=== PATIENT | female | born 1960 | race Caucasian/White ===

== ENCOUNTER 2019-02-26 05:53 | Emergency (ER) | payer MEDICARE, OTHER ==
[2019-02-26] MEDS ORDERED: IBUPROFEN 200 MG TAB PO ONE (06:37)
--- NOTE | 2019-02-26 06:37 | EDPHYS ---
Physician Documentation [facility] Name: Clementina Lawler Age: 58 yrs Sex: Female : 1960 Arrival Date: 02/26/2019 Time: 05:57 Bed 13 Private MD: Asaf More ED Physician Elliot Antonio HPI: 02/26 06:14 This 58 yrs old Female presents to ER via Ambulatory with complaints of Wrist kb Injury. 06:14 The patient or guardian reports decreased range of motion, injury, pain, swelling, kb tenderness. The complaints affect the left wrist diffusely. Context: The problem was sustained at home, resulted from a fall, on an outstretched hand. Onset: The symptoms/episode began/occurred yesterday. Modifying factors: The symptoms are alleviated by nothing, the symptoms are aggravated by movement. Associated signs and symptoms: The patient has no apparent associated signs or symptoms. The patient has not experienced similar symptoms in the past. The patient has not recently seen a physician. Pt reports she fell onto outstretched hand on Monday morning at 0200. States the swelling and bruising is just getting worse. Historical: - Allergies: 06:14 Risperdal; bb - Home Meds: 06:14 fluoxetine 20 mg Oral cap 1 cap once daily [Active]; gabapentin oral oral [Active]; bb Wellbutrin 100 mg Oral tab [Active]; levothyroxine oral [Active]; Amitriptyline Oral [Active]; - PMHx: 06:14 Anxiety; BREAST CA; Chronic pain; Depression; Hypothyroidism; bb - PSHx: 06:14 lumpectomy with lymph node removal; oophorectomy; salpingectomy; bb - Immunization history:: Adult Immunizations up to date. - Social history:: Smoking status: Patient uses tobacco products, smokes one pack cigarettes per day. - Ebola Screening: : No symptoms or risks identified at this time. ROS: 06:13 Constitutional: Negative for fever, chills, and weight loss, Cardiovascular: Negative kb for chest pain, palpitations, and edema, Respiratory: Negative for shortness of breath, cough, wheezing, and pleuritic chest pain, Abdomen/GI: Negative for abdominal pain, nausea, vomiting, diarrhea, and constipation, Skin: Negative for injury, rash, and discoloration, Neuro: Negative for headache, weakness, numbness, tingling, and seizure. 06:13 MS/extremity: Positive for injury or acute deformity, decreased range of motion, pain, swelling, tenderness, of the left wrist. Exam: 06:13 Constitutional: This is a well developed, well nourished patient who is awake, alert, kb and in no acute distress. Head/Face: Normocephalic, atraumatic. Chest/axilla: Normal chest wall appearance and motion. Nontender with no deformity. No lesions are appreciated. Cardiovascular: Regular rate and rhythm with a normal S1 and S2. No gallops, murmurs, or rubs. Normal PMI, no JVD. No pulse deficits. Respiratory: Lungs have equal breath sounds bilaterally, clear to auscultation and percussion. No rales, rhonchi or wheezes noted. No increased work of breathing, no retractions or nasal flaring. Abdomen/GI: Soft, non-tender, with normal bowel sounds. No distension or tympany. No guarding or rebound. No evidence of tenderness throughout. Skin: Warm, dry with normal turgor. Normal color with no rashes, no lesions, and no evidence of cellulitis. Neuro: Awake and alert, GCS 15, oriented to person, place, time, and situation. Cranial nerves II-XII grossly intact. Motor strength 5/5 in all extremities. Sensory grossly intact. Cerebellar exam normal. Normal gait. 06:13 Musculoskeletal/extremity: Extremities: grossly normal except: noted in the left wrist: decreased ROM, pain, swelling, tenderness, ROM: limited active range of motion, in the left wrist, Circulation is intact in all extremities. Sensation intact. Vital Signs: 06:14 BP 129 / 71; Pulse 99; Resp 16 S; Temp 98.4(O); Pulse Ox 96% on R/A; Weight 63.5 kg bb (R); Height 5 ft. 4 in. (162.56 cm) (R); Pain 6/10; 07:30 BP 134 / 76; Pulse 81; Resp 16; Temp 98.5; Pulse Ox 99% on R/A; Pain 3/10; ch 06:14 Body Mass Index 24.03 (63.50 kg, 162.56 cm) bb MDM: 06:02 Patient medically screened. kb 06:13 Data reviewed: vital signs, nurses notes. Data interpreted: Pulse oximetry: on room air kb is 98 %. Interpretation: normal. 06:35 Counseling: I had a detailed discussion with the patient and/or guardian regarding: the kb historical points, exam findings, and any diagnostic results supporting the discharge/admit diagnosis, radiology results, the need for outpatient follow up, a orthopedic surgeon, to return to the emergency department if symptoms worsen or persist or if there are any questions or concerns that arise at home. 13:24 Test interpretation: by ED physician or midlevel provider: plain radiologic studies, kb fracture of radius . 02/26 06:07 Order name: Wrist Left (3 View) XRAY; Complete Time: 13:24 kb 02/26 06:16 Order name: Ice pack; Complete Time: 07:02 kb 02/26 06:35 Order name: Sugar Tong Forearm Splint; Complete Time: 07:49 kb 02/26 06:35 Order name: Sling; Complete Time: 07:49 kb Administered Medications: 06:20 Drug: Ibuprofen 600 mg Route: PO; jb4 07:49 Follow up: Response: No adverse reaction Disposition: 09:54 Co-signature as Attending Physician, Elliot Antonio MD I agree with the assessment and dwight plan of care. Disposition: 02/26/19 06:37 Discharged to Home. Impression: Nondisplaced fracture of left radius. - Condition is Stable. - Discharge Instructions: Forearm Fracture, [id number], Cast or Splint Care, [id number]. - Prescriptions for Tramadol 50 mg Oral Tablet - take 1 tablet by ORAL route every 8 hours as needed; 12 tablet. - Medication Reconciliation Form, Thank You Letter, Antibiotic Education, Prescription Opioid Use form. - Follow up: Private Physician; When: 2 - 3 days; Reason: Recheck today's complaints, Continuance of care, Re-evaluation by your physician. Follow up: Emergency Department; When: As needed; Reason: Worsening of condition. Signatures: Dispatcher [employer] Yaz Villarreal, BASE FILLER-C BASE FILLER-Ju Saavedra, RN RN Elliot Wynne MD MD cha Ballard, Brenda, Ike Ureña RN, THERESA RN jb4 Corrections: (The following items were deleted from the chart) 07:56 06:37 02/26/2019 06:37 Discharged to Home. Impression: Nondisplaced fracture of left ch radius. Condition is Stable. Forms are Medication Reconciliation Form, Thank You Letter, Antibiotic Education, Prescription Opioid Use. Follow up: Private Physician; When: 2 - 3 days; Reason: Recheck today's complaints, Continuance of care, Re-evaluation by your physician. Follow up: Emergency Department; When: As needed; Reason: Worsening of condition. kb
--- NOTE | 2019-02-26 06:37 | ER ---
Nurse's Notes [facility] Name: Clementina Lawler Age: 58 yrs Sex: Female : 1960 Arrival Date: 02/26/2019 Time: 05:57 Bed 13 Private MD: Asaf More Diagnosis: Nondisplaced fracture of left radius Presentation: 02/26 06:10 Presenting complaint: Patient states: she fell on her left arm about 28 hours ago and bb it is becoming more swollen now. Transition of care: patient was not received from another setting of care. Onset of symptoms was February 25, 2019. Risk Assessment: Do you want to hurt yourself or someone else? Patient reports no desire to harm self or others. Initial Sepsis Screen: Does the patient meet any 2 criteria? No. Patient's initial sepsis screen is negative. Does the patient have a suspected source of infection? No. Patient's initial sepsis screen is negative. Care prior to arrival: None. 06:10 Method Of Arrival: Ambulatory bb 06:10 Acuity: AWA 4 bb Triage Assessment: 07:55 General: Appears in no apparent distress. comfortable. Injury Description: Deformity ch sustained to left arm. Historical: - Allergies: 06:14 Risperdal; bb - Home Meds: 06:14 fluoxetine 20 mg Oral cap 1 cap once daily [Active]; gabapentin oral oral [Active]; bb Wellbutrin 100 mg Oral tab [Active]; levothyroxine oral [Active]; Amitriptyline Oral [Active]; - PMHx: 06:14 Anxiety; BREAST CA; Chronic pain; Depression; Hypothyroidism; bb - PSHx: 06:14 lumpectomy with lymph node removal; oophorectomy; salpingectomy; bb - Immunization history:: Adult Immunizations up to date. - Social history:: Smoking status: Patient uses tobacco products, smokes one pack cigarettes per day. - Ebola Screening: : No symptoms or risks identified at this time. Screenin:30 Abuse screen: Denies threats or abuse. Denies injuries from another. Nutritional ch screening: No deficits noted. Tuberculosis screening: No symptoms or risk factors identified. Fall Risk None identified. Assessment: 06:01 General: Appears in no apparent distress. uncomfortable, Behavior is calm, cooperative, jb4 appropriate for age. Pain: Complains of pain in lateral aspect of left hand Pain does not radiate. Pain currently is 6 out of 10 on a pain scale. Quality of pain is described as sharp, Pain began 1 day ago. Neuro: Level of Consciousness is awake, alert, obeys commands, Oriented to person, place, time, situation. Cardiovascular: Patient's skin is warm and dry. Pulses are 3+ in left radial artery. Respiratory: Airway is patent Respiratory effort is Respiratory pattern is regular, symmetrical. GI: No signs and/or symptoms were reported involving the gastrointestinal system. : No signs and/or symptoms were reported regarding the genitourinary system. EENT: No signs and/or symptoms were reported regarding the EENT system. Derm: Skin is intact, Skin is pink, warm \T\ dry. Musculoskeletal: Circulation, motion, and sensation intact. Swelling present in left hand. 06:43 Reassessment: Patient appears in no apparent distress at this time. Patient and/or jb4 family updated on plan of care and expected duration. Pain level reassessed. Patient is alert, oriented x 3, equal unlabored respirations, skin warm/dry/pink. 07:10 Reassessment: attempted to remove pt rings from L thumb via ice water, soap, lube. ch unsucessful. will attempt to cut rings off next. 07:30 Reassessment: Patient appears in no apparent distress at this time. Patient and/or ch family updated on plan of care and expected duration. Pain level reassessed. Patient is alert, oriented x 3, equal unlabored respirations, skin warm/dry/pink. rings cut off, skin remains intact, [employer] immediate. 07:49 Reassessment: Patient appears in no apparent distress at this time. Patient and/or ch family updated on plan of care and expected duration. Pain level reassessed. Patient is alert, oriented x 3, equal unlabored respirations, skin warm/dry/pink. Patient states feeling better. Patient states symptoms have improved. Vital Signs: 06:14 BP 129 / 71; Pulse 99; Resp 16 S; Temp 98.4(O); Pulse Ox 96% on R/A; Weight 63.5 kg bb (R); Height 5 ft. 4 in. (162.56 cm) (R); Pain 6/10; 07:30 BP 134 / 76; Pulse 81; Resp 16; Temp 98.5; Pulse Ox 99% on R/A; Pain 3/10; ch 06:14 Body Mass Index 24.03 (63.50 kg, 162.56 cm) bb ED Course: 05:57 Patient arrived in ED. am2 05:58 Asaf More is Private Physician. am2 06:01 [facility] kb 06:01 Elliot Antonio MD is Attending Physician. kb 06:11 Triage completed. bb 06:14 Arm band placed on Patient placed in an exam room, on a stretcher, on pulse oximetry. bb 06:30 X-ray completed. Portable x-ray completed in exam room. Patient tolerated procedure kw well. 06:31 Wrist Left (3 View) XRAY In Process Unspecified. EDMS 06:41 Ike Patiño, RN is Primary Nurse. jb4 06:50 Patient has correct armband on for positive identification. Bed in low position. Call light in reach. Side rails up X 1. Adult w/ patient. Pulse ox on. NIBP on. Warm blanket given. Ice pack to injury. 06:50 No provider procedures requiring assistance completed. Patient did not have IV access ch during this emergency room visit. 07:36 Orthoglass splint: Sugar tong splint applied on left arm. Sling applied to left arm. ch 07:52 No apparent distress. Resting quietly. ch 07:54 Recheck of NV status to L hand intact, skin wdp, [employer] immediate. pt tolerated splint ch well, states it feels hard, and that the hand/wrist feels better. Administered Medications: 06:20 Drug: Ibuprofen 600 mg Route: PO; jb4 07:49 Follow up: Response: No adverse reaction ch Outcome: 06:37 Discharge ordered by . kb 07:54 Discharged to home ambulatory. ch 07:54 Condition: good 07:54 Discharge instructions given to patient, Instructed on discharge instructions, follow up and referral plans. no drinking with medication, no driving heavy equipment, medication usage, splint care, s/s of compartment syndrome, RICE, do not remove splint till seen by ortho Demonstrated understanding of instructions, follow-up care, medications, splint care, Prescriptions given X 1. 07:56 Patient left the ED. ch Signatures: Dispatcher [employer] EDCA Yaz Rocha FNP-C FNP-Derrickb Ju Mcbride, RN RN ch Wendy Yap RN RN bb Daisy Alonso James RN RN jb4 Leticia Almazan
[2019-02-26 08:05] VITALS: BP 134/76; TEMP 98.5; O2SAT 99
--- NOTE | 2019-02-26 08:33 | RAD REPORT ---
EXAM DESCRIPTION: RAD - Wrist Left 3 View - 02/26/2019 6:31 am CLINICAL HISTORY: Pain;Swelling Pain COMPARISON: No comparisons FINDINGS: Buckle fracture is seen involving the distal radial metaphysis. Moderate adjacent soft tis marina swelling seen. No dislocation evident.
== END 2019-02-26 07:56 | disposition home or self-care (01) ==
LOC: ER 05:53
PROC: 2W3DX1Z Immobilization of Left Lower Arm using Splint (ICD-10-PCS; principal; 2019-02-26)
DX: S52.92XA Unspecified fracture of left forearm, initial encounter for closed fracture (principal); W19.XXXA Unspecified fall, initial encounter; C50.919 Malignant neoplasm of unspecified site of unspecified female breast; E03.9 Hypothyroidism, unspecified; F32.9 Major depressive disorder, single episode, unspecified; F41.9 Anxiety disorder, unspecified; F17.210 Nicotine dependence, cigarettes, uncomplicated
CPT/HCPCS: 99284

== ENCOUNTER 2019-06-12 12:12 | Emergency (ER) | payer MEDICARE ==
--- OUTSIDE RECORDS SUMMARY | 2019-06-12 12:18 | XMS REPORT ---
:1960 Author Organization [employer] Care Team Providers Name Role Phone FanRjei Provider Role Unavailable Allergies, Adverse Reactions, Alerts Substance Reaction Event Type Risperdal Info Not Available Drug Allergy Problems Problem Type Condition Code Onset Dates Condition Status Problem Strain of extensor pollicis longus S66.819A Active tendon Problem Closed torus fracture of distal S52.522A Active end of left radius, initial encounter Assessment Closed torus fracture of distal S52.522D Active end of left radius with routine healing Assessment Pain in joint of left foot M25.572 Active Assessment Closed nondisplaced fracture of S92.515A Active proximal phalanx of lesser toe of left foot, initial encounter Medications Medication Code Code Instructions Start End Status Dosage System Date Date Ibuprofen ND 30889019086 800 MG Oral Active TK 1 T PO TID WITH FOOD OR MILK BuPROPion HCl ND 79739332114 100 MG Oral Active TAKE ONE (1) TABLET(S) BY MOUTH TWICE A DAY. Gabapentin [facility] [address]-42 Active not defined Wellbutrin NDC 0 Active not defined amitriptyline NDC 0 Active not defined Tramadol HCl NDC 0 Active not defined Levothyroxine [facility] [address]-45 Active not Sodium defined Fluoxetine NDC 0 Active not defined Results No Known Results Summary Purpose eClinicalWorks Submission
--- OUTSIDE RECORDS SUMMARY | 2019-06-12 12:18 | XMS REPORT | Clinical Summary ---
:1960 Author Organization [facility] Address [address] [place] [address] Care Team Providers Name Role Phone Sharpless Primary Care Provider Allergies Active Allergy Reactions Severity Noted Date Comments Risperidone Analogues 10/15/2016 Per OSH record Medications No known medications Active Problems Problem Noted Date Respiratory failure requiring intubation 10/15/2016 Benzodiazepine overdose 10/15/2016 Shock 10/14/2016 Social History Tobacco Use Types Packs/Day Years Used Date Never Assessed Sex Assigned at Date Recorded Not on file Job Start Date Occupation Industry Not on file Not on file Not on file Travel History Travel Start Travel End No recent travel history available. Last Filed Vital Signs Not on file Plan of Treatment Not on file Results Not on fileafter 06/11/2018 Insurance Payer Benefit Plan / Group Subscriber ID Type Phone Address MEDICARE MEDICARE A B xxxxxxxxxx Medicare Advance Directives For more information, please contact:[facility] [employer] [id number] [place], [place] [phone] Code Status Date Activated Date Inactivated Comments Full Code 10/15/2016 1:49 AM 10/19/2016 3:23 PM This code status was determined by: Patient
--- OUTSIDE RECORDS SUMMARY | 2019-06-12 12:18 | XMS REPORT ---
:1960 Author Organization [employer] Care Team Providers Name Role Phone Reji Fan Provider Role Unavailable Allergies, Adverse Reactions, Alerts Substance Reaction Event Type Risperdal Info Not Available Drug Allergy Problems Problem Type Condition Code Onset Dates Condition Status Assessment Pain in joint of left foot M25.572 Active Assessment Pain in joint of left wrist M25.532 Active Assessment Strain of extensor pollicis longus S66.819A Active tendon Assessment Closed nondisplaced fracture of S92.515D Active proximal phalanx of lesser toe of left foot with routine healing Assessment Closed torus fracture of distal S52.522D Active end of left radius with routine healing Problem Closed nondisplaced fracture of S92.515D Active proximal phalanx of lesser toe of left foot with routine healing Problem Pain in joint of left wrist M25.532 Active Problem Closed nondisplaced fracture of S92.515A Active proximal phalanx of lesser toe of left foot, initial encounter Problem Strain of extensor pollicis longus S66.819A Active tendon Problem Closed torus fracture of distal S52.522A Active end of left radius, initial encounter Problem Pain in joint of left foot M25.572 Active Problem Closed torus fracture of distal S52.522D Active end of left radius with routine healing Medications Medication Code Code Instructions Start End Status Dosage System Date Date BuPROPion HCl [facility] 36543717520 100 MG Oral Active TAKE ONE (1) TABLET(S) BY MOUTH TWICE A DAY. Tramadol HCl NDC 0 Active not defined Fluoxetine NDC 0 Active not defined Wellbutrin NDC 0 Active not defined Levothyroxine [facility] [address]-52 Active not Sodium defined amitriptyline NDC 0 Active not defined Ibuprofen ND 28323167334 800 MG Oral Active TK 1 T PO TID WITH FOOD OR MILK Gabapentin [facility] [address]-41 Active not defined Results No Known Results Summary Purpose eClinicalWorks Submission
--- NOTE | 2019-06-12 14:09 | ER ---
Nurse's Notes [facility] Name: Clementina Lawler Age: 59 yrs Sex: Female : 1960 Arrival Date: 06/12/2019 Time: 12:16 Bed 11 Private MD: Diagnosis: Encounter for change or removal of surgical wound dressing Presentation: 06/12 12:32 Presenting complaint: Patient states: i think my incision is infected it was a week ago tw2 and it hurts on my LEFT wrist, I dont want to back to my orthopedic and my pcp told me to come here and they couldn't get me in until monday. Transition of care: patient was not received from another setting of care. Onset of symptoms was June 12, 2019. Risk Assessment: Do you want to hurt yourself or someone else? Patient reports no desire to harm self or others. Initial Sepsis Screen: Does the patient meet any 2 criteria? No. Patient's initial sepsis screen is negative. Does the patient have a suspected source of infection? No. Patient's initial sepsis screen is negative. Care prior to arrival: None. 12:32 Method Of Arrival: Ambulatory tw2 12:39 Acuity: AWA 4 tw2 Triage Assessment: 12:38 General: Appears in no apparent distress. slender, Behavior is calm, cooperative, tw2 appropriate for age. Pain: Complains of pain in LEFT wrist. Derm: sutures noted to LEFT wrist and top of first finger, minimal redness noted, no drainage. Historical: - Allergies: 12:36 Risperdal; tw2 - Home Meds: 12:36 Amitriptyline Oral [Active]; gabapentin Oral [Active]; fluoxetine 20 mg Oral cap 1 cap tw2 once daily [Active]; Wellbutrin 100 mg Oral tab [Active]; - PMHx: 12:36 Anxiety; BREAST CA; Chronic pain; Depression; Hypothyroidism; *no blood pressure on tw2 right*; - PSHx: 12:36 lumpectomy with lymph node removal; oophorectomy; salpingectomy; tw2 - Immunization history:: Adult Immunizations unknown. - Social history:: Smoking status: Patient uses tobacco products, smokes one pack cigarettes per day. - Ebola Screening: : Patient denies travel to an Ebola-affected area in the 21 days before illness onset. Screenin:35 Abuse screen: Denies threats or abuse. Nutritional screening: No deficits noted. tw2 Tuberculosis screening: No symptoms or risk factors identified. Fall Risk None identified. Assessment: 13:35 General: Appears in no apparent distress. Pain: Complains of pain in left hand and left tw2 arm. Neuro: Level of Consciousness is awake, alert, obeys commands, Oriented to person, place, time, situation. Cardiovascular: Heart tones S1 S2 Patient's skin is warm and dry. Respiratory: Airway is patent Respiratory effort is even, unlabored, Respiratory pattern is regular, symmetrical. GI: No signs and/or symptoms were reported involving the gastrointestinal system. : No signs and/or symptoms were reported regarding the genitourinary system. EENT: No signs and/or symptoms were reported regarding the EENT system. Derm: sutures noted on right wrist and first finger, minimal drainage noted, small amount of erythema noted. Reports pain on LEFT wrist. Musculoskeletal: Circulation, motion, and sensation intact. Range of motion: limited in MCP of left index finger and left wrist. 14:11 Reassessment: Patient appears in no apparent distress at this time. No changes from tw2 previously documented assessment. Patient and/or family updated on plan of care and expected duration. Pain level reassessed. Patient is alert, oriented x 3, equal unlabored respirations, skin warm/dry/pink. Vital Signs: 12:38 BP 103 / 77; Pulse 92; Resp 18; Temp 98.4(O); Pulse Ox 98% on R/A; Weight 62.14 kg (R); tw2 Height 5 ft. 4 in. (162.56 cm); Pain 3/10; 12:38 Body Mass Index 23.52 (62.14 kg, 162.56 cm) tw2 ED Course: 12:16 Patient arrived in ED. mr 12:34 Triage completed. tw2 12:34 Arm band placed on. tw2 13:21 Bed in low position. Call light in reach. tw2 13:25 Elliot Crump PA is PHCP. cp 13:25 Herrera Garner MD is Attending Physician. cp 13:34 Marily Block RN is Primary Nurse. tw2 14:08 Jeffrey Nagel MD is Referral Physician. cp 14:08 Referral Physician role handed off by Jeffrey Nagel MD cp 14:08 Roni Fuentes MD is Referral Physician. cp 14:11 Dressings: left wrist cleaned with NS and hibiclense, dried gently with 4x4 gauze, tw2 small amt of neosporin applied, non adherent dressing applied with zain, srini wrap loosly applied, cms intact, pt tolerated well. 14:32 No provider procedures requiring assistance completed. Patient did not have IV access tw2 during this emergency room visit. Administered Medications: No medications were administered Outcome: 14:09 Discharge ordered by MD. cp 14:32 Patient left the ED. tw2 14:32 Discharged to home ambulatory. tw2 14:32 Condition: stable 14:32 Discharge instructions given to patient, Instructed on discharge instructions, follow up and referral plans. medication usage, wound care, Demonstrated understanding of instructions, follow-up care, medications, wound care, Prescriptions given X 1. Signatures: Joya Dale mr Elliot Crump PA PA cp Marily Block RN RN tw2 Corrections: (The following items were deleted from the chart) 12:39 12:32 Acuity: AWA 3 tw2 tw2
--- NOTE | 2019-06-12 14:10 | EDPHYS ---
Physician Documentation [facility] Name: Clementina Lawler Age: 59 yrs Sex: Female : 1960 Arrival Date: 06/12/2019 Time: 12:16 Bed 11 Private MD: ED Physician Herrera Garner HPI: 06/12 13:42 This 59 yrs old Female presents to ER via Ambulatory with complaints of Wound cp Infection, Cough. 13:42 The patient or guardian reports concern for surgical wound infection left hand and left cp wrist. Context: Patient reports having tendon surgery by Dr Fuentes on 06-03-2019. Patient reports she had f/u yesterday with Dr Fuentes. Denies fever, chills. Reports cough times 2 weeks. Historical: - Allergies: 12:36 Risperdal; tw2 - Home Meds: 12:36 Amitriptyline Oral [Active]; gabapentin Oral [Active]; fluoxetine 20 mg Oral cap 1 cap tw2 once daily [Active]; Wellbutrin 100 mg Oral tab [Active]; - PMHx: 12:36 Anxiety; BREAST CA; Chronic pain; Depression; Hypothyroidism; *no blood pressure on tw2 right*; - PSHx: 12:36 lumpectomy with lymph node removal; oophorectomy; salpingectomy; tw2 - Immunization history:: Adult Immunizations unknown. - Social history:: Smoking status: Patient uses tobacco products, smokes one pack cigarettes per day. - Ebola Screening: : Patient denies travel to an Ebola-affected area in the 21 days before illness onset. ROS: 13:45 Constitutional: Negative for body aches, chills, fever, poor PO intake. cp 13:45 Eyes: Negative for injury, pain, redness, and discharge. cp 13:45 Cardiovascular: Negative for chest pain, palpitations. 13:45 Respiratory: Positive for cough, with no reported sputum, Negative for wheezing. 13:45 Skin: Positive for of the dorsal aspect of left hand and left wrist, surgical wound. 13:45 All other systems are negative. Exam: 13:58 Head/Face: Normocephalic, atraumatic. cp 13:58 Constitutional: The patient appears in no acute distress, alert, awake, comfortable, non-diaphoretic, non-toxic, well developed, well nourished. 13:58 Eyes: Periorbital structures: appear normal, Conjunctiva: normal, no exudate, no injection, Lids and lashes: appear normal, bilaterally. 13:58 ENT: External ear(s): are unremarkable, Nose: is normal, Mouth: is normal. 13:58 Chest/axilla: Inspection: normal. 13:58 Cardiovascular: Rate: normal, Rhythm: regular. 13:58 Respiratory: the patient does not display signs of respiratory distress, Respirations: normal, no use of accessory muscles, no retractions, no splinting, no tachypnea, labored breathing, is not present, Breath sounds: are clear throughout, no decreased breath sounds, no stridor, no wheezing. 13:58 Skin: surgical wound located dorsum left hand and left wrist appears with mild erythema of wound edges and minimal swelling. No dehiscence noted and no drainage expressed. Sutures intact. Vital Signs: 12:38 BP 103 / 77; Pulse 92; Resp 18; Temp 98.4(O); Pulse Ox 98% on R/A; Weight 62.14 kg (R); tw2 Height 5 ft. 4 in. (162.56 cm); Pain 3/10; 12:38 Body Mass Index 23.52 (62.14 kg, 162.56 cm) tw2 MDM: 13:27 Patient medically screened. cp 14:01 Data reviewed: vital signs, nurses notes, and as a result, I will discharge patient. ED cp course: Patient concerned about infected surgical wound and requesting antibiotic. Will discharge with RX for oral Keflex and recommend follow as scheduled with surgeon. 06/12 13:38 Order name: Wound dressing: please clean and redress surgical wound; Complete Time: cp 14:11 Administered Medications: No medications were administered Disposition: 15:45 Co-signature as Attending Physician, Herrera Garner MD. rn Disposition: 06/12/19 14:09 Discharged to Home. Impression: Encounter for change or removal of surgical wound dressing. - Condition is Stable. - Discharge Instructions: How to Change Your Dressing, Wound Care. - Prescriptions for Keflex 500 mg Oral Capsule - take 1 capsule by ORAL route every 8 hours for 10 days; 30 capsule. - Medication Reconciliation Form, Thank You Letter, Antibiotic Education, Prescription Opioid Use, Work release form form. - Follow up: Jeffrey Nagel MD; When: 2 - 3 days; Reason: Wound Recheck. Follow up: Roni Fuentes MD; When: 2 - 3 days; Reason: Wound Recheck. - Problem is new. - Symptoms have improved. Signatures: Herrera Garner MD MD rn Elliot Crump PA PA cp Marily Block RN RN tw2 Corrections: (The following items were deleted from the chart) 14:32 14:09 06/12/2019 14:09 Discharged to Home. Impression: Encounter for change or removal tw2 of surgical wound dressing. Condition is Stable. Forms are Medication Reconciliation Form, Thank You Letter, Antibiotic Education, Prescription Opioid Use. Follow up: Roni Fuentes; When: 2 - 3 days; Reason: Wound Recheck. Problem is new. Symptoms have improved. cp
[2019-06-12 14:43] VITALS: BP 103/77; TEMP 98.4; O2SAT 98
== END 2019-06-12 14:32 | disposition home or self-care (01) ==
LOC: ER 12:12
DX: Z48.01 Encounter for change or removal of surgical wound dressing (principal); F17.210 Nicotine dependence, cigarettes, uncomplicated; E03.9 Hypothyroidism, unspecified; F32.9 Major depressive disorder, single episode, unspecified; F41.9 Anxiety disorder, unspecified; Z85.3 Personal history of malignant neoplasm of breast; Z88.8 Allergy status to other drugs, medicaments and biological substances
CPT/HCPCS: 99282

== ENCOUNTER 2019-07-07 17:05 | Emergency (ER) | payer MEDICARE ==
--- NOTE | 2019-07-07 17:47 | EDPHYS ---
Physician Documentation [facility] Name: Clementina Lawler Age: 59 yrs Sex: Female : 1960 Arrival Date: 07/07/2019 Time: 17:06 Bed 18 Private MD: ED Physician Elliot Antonio HPI: 07/07 17:35 This 59 yrs old Female presents to ER via Ambulatory with complaints of Mouth cp Problem. 17:35 The problem is located in the right lower gumline. cp 17:35 Onset: The symptoms/episode began/occurred 3 week(s) ago, after having multiple teeth cp pulled from right lower gumline. Associated signs and symptoms: Pertinent negatives: chills, dysphagia, fever, inability to eat, swelling, facial. 17:35 Severity of symptoms: in the emergency department the symptoms are unchanged, despite cp home interventions. Historical: - Allergies: 17:10 Risperdal; sv - PMHx: 17:10 *no blood pressure on right*; Anxiety; BREAST CA; Chronic pain; Depression; sv Hypothyroidism; - PSHx: 17:10 lumpectomy with lymph node removal; oophorectomy; salpingectomy; sv ROS: 17:40 Constitutional: Negative for body aches, chills, fever, poor PO intake. cp 17:40 Eyes: Negative for injury, pain, redness, and discharge. cp 17:40 ENT: Positive for Gum pain Negative for ear pain, sore throat, difficulty swallowing, difficulty handling secretions. 17:40 Neck: Negative for stiffness. 17:40 Respiratory: Negative for cough. 17:40 Abdomen/GI: Negative for abdominal pain, nausea, vomiting, diarrhea. 17:40 Skin: Negative for rash. 17:40 Neuro: Negative for altered mental status, headache. 17:40 All other systems are negative. Exam: 17:44 Head/Face: Normocephalic, atraumatic. cp 17:44 Constitutional: The patient appears in no acute distress, alert, awake, non-toxic, well developed, well nourished. 17:44 Eyes: Periorbital structures: appear normal, Conjunctiva: normal, no exudate, no cp injection, Lids and lashes: appear normal, bilaterally. 17:44 ENT: External ear(s): are unremarkable, Ear canal(s): are normal, clear, TM's: cp dullness, bilaterally, Nose: is normal, Mouth: Lips: moist, Oral mucosa: moist, Gums: reddened, abscess, is not appreciated, Posterior pharynx: Airway: no evidence of obstruction, patent, Dental exam: abscess, is not appreciated, dental caries, that is severe, diffusely, fractured teeth are noted, diffusely, missing teeth, diffusely. 17:44 Neck: ROM/movement: is normal, is supple, without pain, no range of motions limitations, Lymph nodes: no appreciated lymphadenopathy. 17:44 Chest/axilla: Inspection: normal. 17:44 Cardiovascular: Rate: normal, Rhythm: regular. 17:44 Respiratory: the patient does not display signs of respiratory distress, Respirations: normal. 17:44 Skin: no rash present. Vital Signs: 17:10 BP 138 / 92; Pulse 99; Resp 20; Temp 98; Pulse Ox 100% ; Weight 58.06 kg; Height 5 ft. sv 4 in. (162.56 cm); 17:10 Body Mass Index 21.97 (58.06 kg, 162.56 cm) sv MDM: 17:17 Patient medically screened. [facility] 17:45 Data reviewed: vital signs, nurses notes, and as a result, I will discharge patient. cp 17:45 Differential diagnosis: dental caries, dental abscess, pericoronitis. Counseling: I had cp a detailed discussion with the patient and/or guardian regarding: the historical points, exam findings, and any diagnostic results supporting the discharge/admit diagnosis, the need for outpatient follow up, a dentist. Administered Medications: No medications were administered Disposition: 07/08 09:19 Co-signature as Attending Physician, Elliot Antonio MD I agree with the assessment and [facility] plan of care. Disposition: 07/07/19 17:46 Discharged to Home. Impression: Gingivitis and periodontal diseases. - Condition is Stable. - Discharge Instructions: Gingivitis. - Prescriptions for Peridex 0.12 % Mucous Membrane mouthwash - place 15 milliliter by MUCOUS MEMBRANE route 2 times per day (after meals), swish in mouth for 30 seconds then spit out; 1 bottle. Amoxicillin 875 mg Oral Tablet - take 1 tablet by ORAL route every 12 hours for 10 days; 20 tablet. - Medication Reconciliation Form, Thank You Letter, Antibiotic Education, Prescription Opioid Use form. - Follow up: Private Physician; When: 2 - 3 days; Reason: Recheck today's complaints. - Problem is new. - Symptoms are unchanged. Signatures: Dilma Wood RN RN sv Anderson, Corey, MD MD cha Munoz, Edgar, CHIEF SCIENCE OFFICER CHIEF SCIENCE OFFICER em Elliot Crump PA PA cp Corrections: (The following items were deleted from the chart) 07/07 17:56 17:46 07/07/2019 17:46 Discharged to Home. Impression: Gingivitis and periodontal em diseases. Condition is Stable. Forms are Medication Reconciliation Form, Thank You Letter, Antibiotic Education, Prescription Opioid Use. Follow up: Private Physician; When: 2 - 3 days; Reason: Recheck today's complaints. Problem is new. Symptoms are unchanged. cp
--- NOTE | 2019-07-07 17:47 | ER ---
Nurse's Notes [facility] Name: Clementina Lawler Age: 59 yrs Sex: Female : 1960 Arrival Date: 07/07/2019 Time: 17:06 Bed 18 Private MD: Diagnosis: Gingivitis and periodontal diseases Presentation: 07/07 17:08 Presenting complaint: Patient states: front teeth pulled about 3 weeks ago and since sv has been having gum pain. Transition of care: patient was not received from another setting of care. Onset of symptoms was June 2019. Risk Assessment: Do you want to hurt yourself or someone else? Patient reports no desire to harm self or others. Initial Sepsis Screen: Does the patient meet any 2 criteria? No. Patient's initial sepsis screen is negative. Does the patient have a suspected source of infection? No. Patient's initial sepsis screen is negative. Care prior to arrival: None. 17:08 Method Of Arrival: Ambulatory sv 17:08 Acuity: AWA 4 sv Historical: - Allergies: 17:10 Risperdal; sv - PMHx: 17:10 *no blood pressure on right*; Anxiety; BREAST CA; Chronic pain; Depression; sv Hypothyroidism; - PSHx: 17:10 lumpectomy with lymph node removal; oophorectomy; salpingectomy; sv Screenin:20 Abuse screen: Denies threats or abuse. Nutritional screening: No deficits noted. em Tuberculosis screening: No symptoms or risk factors identified. Fall Risk None identified. Assessment: 17:20 General: Appears in no apparent distress. comfortable, Behavior is calm, cooperative, em Denies fever. Pain: Complains of pain in lower right lateral incisor and lower right cuspid Pain currently is 4 out of 10 on a pain scale. Pain began 3 weeks ago. Neuro: Level of Consciousness is awake, alert, obeys commands, Oriented to person, place, time, situation. Cardiovascular: Capillary refill < 3 seconds Patient's skin is warm and dry. Respiratory: Airway is patent Respiratory effort is even, unlabored, Respiratory pattern is regular, symmetrical. EENT: Nares are clear Oral mucosa is moist. Poor dentition noted. Throat is clear is pink. Derm: Skin is intact, is healthy with good turgor, Skin is pink, warm \T\ dry. Musculoskeletal: Capillary refill < 3 seconds, Range of motion: intact in all extremities. Vital Signs: 17:10 BP 138 / 92; Pulse 99; Resp 20; Temp 98; Pulse Ox 100% ; Weight 58.06 kg; Height 5 ft. sv 4 in. (162.56 cm); 17:10 Body Mass Index 21.97 (58.06 kg, 162.56 cm) sv ED Course: 17:06 Patient arrived in ED. am2 17:09 Triage completed. sv 17:10 Arm band placed on. sv 17:15 Elliot Crump PA is PHCP. cp 17:15 Elliot Antonio MD is Attending Physician. cp 17:20 Patient has correct armband on for positive identification. Bed in low position. Call em light in reach. 17:29 Wily Stewart LVN is Primary Nurse. em 17:54 No provider procedures requiring assistance completed. Patient did not have IV access em during this emergency room visit. Administered Medications: No medications were administered Outcome: 17:46 Discharge ordered by MD. cp 17:54 Discharged to home ambulatory. em 17:54 Condition: good 17:54 Discharge instructions given to patient, Instructed on discharge instructions, follow up and referral plans. medication usage, Demonstrated understanding of instructions, follow-up care, medications, Prescriptions given X 2. 17:56 Patient left the ED. em Signatures: Dilma Wood RN RN Wily Stewart LVN LVN em Elliot Crump PA PA cp Moreno, Amanda am2
[2019-07-07 18:05] VITALS: BP 138/92; TEMP 98; O2SAT 100
== END 2019-07-07 17:56 | disposition home or self-care (01) ==
LOC: ER 17:05
DX: K05.10 Chronic gingivitis, plaque induced (principal); F32.9 Major depressive disorder, single episode, unspecified; Z88.8 Allergy status to other drugs, medicaments and biological substances
CPT/HCPCS: 99282

== ENCOUNTER 2019-08-22 08:20 | Emergency (ER) | payer MEDICARE ==
--- OUTSIDE RECORDS SUMMARY | 2019-08-22 08:23 | XMS REPORT ---
[...] Status Dosage System Date Date BuPROPion HCl [facility] 68542927070 100 MG Oral Active TAKE ONE (1) TABLET(S) BY MOUTH TWICE A DAY. Tramadol HCl NDC 0 Active not defined Fluoxetine NDC 0 Active not defined Wellbutrin NDC 0 Active not defined Levothyroxine [facility] [address]-83 Active not Sodium defined amitriptyline NDC 0 Active not defined Ibuprofen ND 03953604564 800 MG Oral Active TK 1 T PO TID WITH FOOD OR MILK Gabapentin [facility] [address]-50 Active not defined Results No Known Results Summary Purpose eClinicalWorks Submission
--- OUTSIDE RECORDS SUMMARY | 2019-08-22 08:23 | XMS REPORT ---
:1960 Author Organization e[employer] Care Team Providers Name Role Phone FanReji Provider Role Unavailable Allergies, Adverse Reactions, Alerts [...] Status Dosage System Date Date Ibuprofen ND 33346129598 800 MG Oral Active TK 1 T PO TID WITH FOOD OR MILK BuPROPion HCl ND 01259261092 100 MG Oral Active TAKE ONE (1) TABLET(S) BY MOUTH TWICE A DAY. Gabapentin [facility] [address]-41 Active not defined Wellbutrin NDC 0 Active not defined amitriptyline NDC 0 Active not defined Tramadol HCl NDC 0 Active not defined Levothyroxine [facility] [address]-24 Active not Sodium defined Fluoxetine NDC 0 Active not defined Results No Known Results Summary Purpose eClinicalWorks Submission
--- OUTSIDE RECORDS SUMMARY | 2019-08-22 08:23 | XMS REPORT ---
:1960 Author Organization [facility] Address [address] [place] [address] Dr. Cunningham [address] [place] [id number] Care Team Providers Name Role Phone Unavailable Unavailable Unavailable Problems This patient has no known problems. Allergies, Adverse Reactions, Alerts This patient has no known allergies or adverse reactions. Medications This patient has no known medications.
--- NOTE | 2019-08-22 09:38 | EDPHYS ---
Physician Documentation [facility] Name: Clemenitna Lawler Age: 59 yrs Sex: Female : 1960 Arrival Date: 08/22/2019 Time: 08:23 Bed 12 Private MD: ED Physician Noe Lake HPI: 08/22 10:03 This 59 yrs old Female presents to ER via Ambulatory with complaints of snw Toothache, Ear Pain. 10:03 The patient presents with broken tooth/teeth, pain. The problem is located in the lower snw left first molar, lower left cuspid, lower left lateral incisor, lower left central incisor, lower right central incisor and lower right lateral incisor. Onset: The symptoms/episode began/occurred gradually, and became worse and became persistent. Duration: The symptoms are continuous. Associated signs and symptoms: Pertinent positives: dry mouth. Severity of symptoms: At their worst the symptoms were moderate, severe. The patient has experienced similar episodes in the past. The patient has not recently seen a physician. pt states she has a dentist but does not have dental insurance. Historical: - Allergies: 09:04 No Known Allergies; ss - PMHx: 09:04 *no blood pressure on right*; Anxiety; BREAST CA; Chronic pain; Depression; ss Hypothyroidism; - PSHx: 09:04 lumpectomy with lymph node removal; oophorectomy; salpingectomy; ss - Immunization history:: Flu vaccine is up to date. - Social history:: Smoking status: Patient uses tobacco products, smokes one pack cigarettes per day. - Ebola Screening: : Patient denies exposure to infectious person Patient denies travel to an Ebola-affected area in the 21 days before illness onset. ROS: 10:03 Constitutional: Negative for fever, chills, and weight loss, Eyes: Negative for injury, snw pain, redness, and discharge, Neck: Negative for injury, pain, and swelling, Cardiovascular: Negative for chest pain, palpitations, and edema, Respiratory: Negative for shortness of breath, cough, wheezing, and pleuritic chest pain, Abdomen/GI: Negative for abdominal pain, nausea, vomiting, diarrhea, and constipation, Back: Negative for injury and pain, : Negative for injury, bleeding, discharge, and swelling, MS/Extremity: Negative for injury and deformity, Skin: Negative for injury, rash, and discoloration, Neuro: Negative for headache, weakness, numbness, tingling, and seizure, Psych: Negative for depression, anxiety, suicide ideation, homicidal ideation, and hallucinations. 10:03 ENT: Positive for dental pain, ear pain. Exam: 10:00 Constitutional: This is a well developed, well nourished patient who is awake, alert, snw and in no acute distress. Head/Face: Normocephalic, atraumatic. Eyes: Pupils equal round and reactive to light, extra-ocular motions intact. Lids and lashes normal. Conjunctiva and sclera are non-icteric and not injected. Cornea within normal limits. Periorbital areas with no swelling, redness, or edema. Neck: Trachea midline, no thyromegaly or masses palpated, and no cervical lymphadenopathy. Supple, full range of motion without nuchal rigidity, or vertebral point tenderness. No Meningismus. Chest/axilla: Normal chest wall appearance and motion. Nontender with no deformity. No lesions are appreciated. Cardiovascular: Regular rate and rhythm with a normal S1 and S2. No gallops, murmurs, or rubs. Normal PMI, no JVD. No pulse deficits. Respiratory: Lungs have equal breath sounds bilaterally, clear to auscultation and percussion. No rales, rhonchi or wheezes noted. No increased work of breathing, no retractions or nasal flaring. Abdomen/GI: Soft, non-tender, with normal bowel sounds. No distension or tympany. No guarding or rebound. No evidence of tenderness throughout. Back: No spinal tenderness. No costovertebral tenderness. Full range of motion. Skin: Warm, dry with normal turgor. Normal color with no rashes, no lesions, and no evidence of cellulitis. MS/ Extremity: Pulses equal, no cyanosis. Neurovascular intact. Full, normal range of motion. Neuro: Awake and alert, GCS 15, oriented to person, place, time, and situation. Cranial nerves II-XII grossly intact. Motor strength 5/5 in all extremities. Sensory grossly intact. Cerebellar exam normal. Normal gait. Psych: Awake, alert, with orientation to person, place and time. Behavior, mood, and affect are within normal limits. 10:00 ENT: External ear(s): are unremarkable, Ear canal(s): are normal, TM's: are normal, Nose: is normal, Mouth: Tongue: dry and greenish in color, Posterior pharynx: Uvula: normal, swelling, is not appreciated, Dental exam: dental caries, that is moderate, that is severe, diffusely, radiation damage to teeth/gingiva, missing teeth, Voice: is normal. Vital Signs: 09:04 BP 135 / 84; Pulse 93; Resp 16; Temp 98.0(TE); Pulse Ox 97% on R/A; Weight 56.7 kg; ss Height 5 ft. 4 in. (162.56 cm); Pain 610; 09:04 Body Mass Index 21.46 (56.70 kg, 162.56 cm) ss MDM: 09:16 Patient medically screened. snw 10:02 Data reviewed: vital signs, nurses notes. Data interpreted: Pulse oximetry: on room air snw is 97 %. Interpretation: normal. Counseling: I had a detailed discussion with the patient and/or guardian regarding: the historical points, exam findings, and any diagnostic results supporting the discharge/admit diagnosis, the presence of at least one elevated blood pressure reading (>120/80) during this emergency department visit, the need for outpatient follow up, to return to the emergency department if symptoms worsen or persist or if there are any questions or concerns that arise at home. Special discussion: I have referred the patient to see his PCP for further evaluation of high blood pressure. Based on the history and exam findings, there is no indication for further emergent testing or inpatient evaluation. I discussed with the patient/guardian the need to see a dentist for further evaluation of the symptoms. I discussed with the patient/guardian the need to see the primary care provider for further evaluation of the symptoms. Administered Medications: 10:03 Drug: Clindamycin 600 mg {Note: 2 mL given to R glut, 2 mL given to L glut..} Route: ss IM; Site: right gluteus; 10:20 Follow up: Response: No adverse reaction ss 10:03 Drug: TORadol 30 mg Route: IM; Site: left deltoid; ss 10:20 Follow up: Response: No adverse reaction ss Disposition: 14:38 Co-signature as Attending Physician, Noe Lake MD I agree with the assessment and kdr plan of care. Disposition: 11/14/19 09:37 Discharged to Home. Impression: Dental caries on pit and fissure surface penetrating into dentin. - Condition is Stable. - Discharge Instructions: Dental Caries, Adult, Dental Pain, Diet and Dental Disease, Dental Extraction, Care After, Preventive Dental Care, Adult. - Prescriptions for Clindamycin HCl 300 mg Oral Capsule - take 1 capsule by ORAL route every 6 hours for 10 days; 40 capsule. Tylenol- Codeine #3 300-30 mg Oral Tablet - take 2 tablets by ORAL route every 6 hours As needed; 16 tablet. chlorhexidine gluconate 0.12 % Mucous Membrane mouthwash - place 15 milliliter by MUCOUS MEMBRANE route 2 times per day after brushing teeth, swish in mouth for 30 seconds then spit out; 480 milliliter. - Medication Reconciliation Form, Thank You Letter, Antibiotic Education, Prescription Opioid Use form. - Follow up: Private Physician; When: Today; Reason: Recheck today's complaints, Continuance of care, Re-evaluation by your physician. Signatures: Noe Lake MD MD [facility] Lenora Lynn, FASHION PATTERNMAKER-C FASHION PATTERNMAKER-[employer] Kat Avila RN RN ss Corrections: (The following items were deleted from the chart) 10:23 09:37 08/22/2019 09:37 Discharged to Home. Impression: Dental caries on pit and fissure ss surface penetrating into dentin. Condition is Stable. Forms are Medication Reconciliation Form, Thank You Letter, Antibiotic Education, Prescription Opioid Use. Follow up: Private Physician; When: Today; Reason: Recheck today's complaints, Continuance of care, Re-evaluation by your physician. snw
--- NOTE | 2019-08-22 09:38 | ER ---
Nurse's Notes [facility] Name: Clementina Lawler Age: 59 yrs Sex: Female : 1960 Arrival Date: 08/22/2019 Time: 08:23 Bed 12 Private MD: Diagnosis: Dental caries on pit and fissure surface penetrating into dentin Presentation: 08/22 09:02 Presenting complaint: Patient states: "I have 3 teeth that are killing me. They hurt so ss bad and now my ear is hurting. I've got stomach cramps, and I'm alternating Tylenol and ibuprofen.". Transition of care: patient was not received from another setting of care. Onset of symptoms was July 22, 2019. Risk Assessment: Do you want to hurt yourself or someone else? Patient reports no desire to harm self or others. Initial Sepsis Screen: Does the patient meet any 2 criteria? No. Patient's initial sepsis screen is negative. Does the patient have a suspected source of infection? No. Patient's initial sepsis screen is negative. Care prior to arrival: None. 09:02 Method Of Arrival: Ambulatory ss 09:02 Acuity: AWA 5 ss Historical: - Allergies: 09:04 No Known Allergies; ss - PMHx: 09:04 *no blood pressure on right*; Anxiety; BREAST CA; Chronic pain; Depression; ss Hypothyroidism; - PSHx: 09:04 lumpectomy with lymph node removal; oophorectomy; salpingectomy; ss - Immunization history:: Flu vaccine is up to date. - Social history:: Smoking status: Patient uses tobacco products, smokes one pack cigarettes per day. - Ebola Screening: : Patient denies exposure to infectious person Patient denies travel to an Ebola-affected area in the 21 days before illness onset. Screenin:00 Abuse screen: Denies threats or abuse. Denies injuries from another. Nutritional ss screening: No deficits noted. Tuberculosis screening: Never had TB. Fall Risk None identified. Assessment: 09:00 General: Appears uncomfortable, Behavior is calm, cooperative. Pain: Complains of pain ss in lower right lateral incisor and lower right central incisor and lower left central incisor and lower left lateral incisor and lower left cuspid and lower left first molar Pain currently is 6 out of 10 on a pain scale. Pain began x 1 month Is continuous. Neuro: Level of Consciousness is awake, alert, obeys commands, Oriented to person, place, time, situation. Cardiovascular: Capillary refill < 3 seconds is brisk in bilateral fingers. Respiratory: Respiratory effort is even, unlabored. GI: No signs and/or symptoms were reported involving the gastrointestinal system. EENT: Nares are clear. EENT: Nares Poor dentition noted. Derm: Skin is intact, is healthy with good turgor, Skin is dry, Skin is pink, warm \\T\\ dry. normal. 10:03 Reassessment: awaiting shot time prior to discharge. ss Vital Signs: 09:04 BP 135 / 84; Pulse 93; Resp 16; Temp 98.0(TE); Pulse Ox 97% on R/A; Weight 56.7 kg; ss Height 5 ft. 4 in. (162.56 cm); Pain 6/10; 09:04 Body Mass Index 21.46 (56.70 kg, 162.56 cm) ED Course: 08:23 Patient arrived in ED. mr 08:36 [facility] snw 08:36 Noe Lake MD is Attending Physician. snw 09:00 Patient has correct armband on for positive identification. Bed in low position. Call ss light in reach. 09:03 Triage completed. ss 09:04 Arm band placed on right wrist. ss 09:36 Kat Avila, THERESA is Primary Nurse. ss 10:19 No provider procedures requiring assistance completed. Patient did not have IV access ss during this emergency room visit. Administered Medications: 10:03 Drug: Clindamycin 600 mg {Note: 2 mL given to R glut, 2 mL given to L glut..} Route: ss IM; Site: right gluteus; 10:20 Follow up: Response: No adverse reaction ss 10:03 Drug: TORadol 30 mg Route: IM; Site: left deltoid; ss 10:20 Follow up: Response: No adverse reaction ss Outcome: 09:37 Discharge ordered by . snw 10:19 Discharged to home ambulatory. ss 10:19 Condition: good 10:19 Discharge instructions given to patient, family, Instructed on discharge instructions, follow up and referral plans. medication usage, Demonstrated understanding of instructions, follow-up care, medications, Prescriptions given X 3. 10:23 Patient left the ED. ss Signatures: Lenora Lynn, IAN-C DRAPERY MAKER-Tariqw Joya Dale Shelby, RN RN ss
[2019-08-22] MEDS ORDERED: CLINDAMYCIN IV 150 MG/ML (4 mL) VIAL ONE (09:56)
[2019-08-22] MEDS ORDERED: KETOROLAC 30 MG/ML INJ ONE (09:57)
[2019-08-22 14:03] VITALS: BP 135/84; TEMP 98; O2SAT 97
== END 2019-08-22 10:23 | disposition home or self-care (01) ==
LOC: ER 08:20
DX: K02.52 Dental caries on pit and fissure surface penetrating into dentin (principal); F17.210 Nicotine dependence, cigarettes, uncomplicated; Z85.3 Personal history of malignant neoplasm of breast
CPT/HCPCS: 96372; 99283; S0077

== ENCOUNTER 2019-10-06 15:17 | Emergency (ER) | payer MEDICARE ==
--- OUTSIDE RECORDS SUMMARY | 2019-10-06 15:20 | XMS REPORT ---
[...] Status Dosage System Date Date Ibuprofen ND [id number] 800 MG Oral Active TK 1 T PO TID WITH FOOD OR MILK BuPROPion HCl ND [id number] 100 MG Oral Active TAKE ONE (1) TABLET(S) BY MOUTH TWICE A DAY. Gabapentin [facility] [address]-60 Active not defined Wellbutrin NDC 0 Active not defined amitriptyline NDC 0 Active not defined Tramadol HCl NDC 0 Active not defined Levothyroxine [facility] [address]-63 Active not Sodium defined Fluoxetine NDC 0 Active not defined Results No Known Results Summary Purpose eClinicalWorks Submission
--- OUTSIDE RECORDS SUMMARY | 2019-10-06 15:20 | XMS REPORT ---
:1960 [facility] Address [address] [place] [address] Dr. Cunningham [address] [place] [id number] Care Team Providers Name Role Phone Unavailable Unavailable Unavailable Problems This patient has no known problems. Allergies, Adverse Reactions, Alerts This patient has no known allergies or adverse reactions. Medications This patient has no known medications.
--- OUTSIDE RECORDS SUMMARY | 2019-10-06 15:20 | XMS REPORT ---
[...] Dosage System Date Date BuPROPion HCl [facility] [id number] 100 MG Oral Active TAKE ONE (1) TABLET(S) BY MOUTH TWICE A DAY. Tramadol HCl NDC 0 Active not defined Fluoxetine NDC 0 Active not defined Wellbutrin NDC 0 Active not defined Levothyroxine [facility] [address]-36 Active not Sodium defined amitriptyline NDC 0 Active not defined Ibuprofen ND [id number] 800 MG Oral Active TK 1 T PO TID WITH FOOD OR MILK Gabapentin [facility] [address]-10 Active not defined Results No Known Results Summary Purpose eClinicalWorks Submission
--- NOTE | 2019-10-06 16:52 | ER ---
Nurse's Notes [facility] Name: Clementina Lawler Age: 59 yrs Sex: Female : 1960 Arrival Date: 10/06/2019 Time: 15:19 Bed 8 Private MD: Diagnosis: Dental caries, unspecified Presentation: 10/06 15:56 Presenting complaint: Patient states: Pain in two teeth on right upper jaw. Transition rb1 of care: patient was not received from another setting of care. Onset of symptoms is unknown. 15:56 Method Of Arrival: Ambulatory rb1 15:56 Acuity: AWA 4 rb1 16:30 Risk Assessment: Do you want to hurt yourself or someone else? Patient reports no tw2 desire to harm self or others. Initial Sepsis Screen: Does the patient meet any 2 criteria? No. Patient's initial sepsis screen is negative. Does the patient have a suspected source of infection? No. Patient's initial sepsis screen is negative. Care prior to arrival: None. Triage Assessment: 15:55 General: Denies fever. Pain: Complains of pain in right upper jaw Pain currently is 7 rb1 out of 10 on a pain scale. Neuro: Level of Consciousness is awake, alert, obeys commands, Oriented to person, place, time, situation. Respiratory: Airway is patent Respiratory effort is even, unlabored, Respiratory pattern is regular, symmetrical. Derm: Skin is pink, warm \T\ dry. 16:35 General: Appears in no apparent distress. Behavior is calm, cooperative, appropriate tw2 for age. 16:35 EENT: Reports dental pain. tw2 Historical: - Allergies: 15:55 No Known Allergies; rb1 - PMHx: 15:55 *no blood pressure on right*; Anxiety; BREAST CA; Chronic pain; Depression; rb1 Hypothyroidism; - PSHx: 15:55 lumpectomy with lymph node removal; oophorectomy; salpingectomy; rb1 - Immunization history:: Adult Immunizations up to date. - Social history:: Smoking status: Patient uses tobacco products, smokes one pack cigarettes per day. - Ebola Screening: : Patient negative for fever greater than or equal to 101.5 degrees Fahrenheit, and additional compatible Ebola Virus Disease symptoms. Screenin:28 Abuse screen: Denies threats or abuse. Nutritional screening: No deficits noted. tw2 Tuberculosis screening: No symptoms or risk factors identified. Fall Risk None identified. Assessment: 16:35 General: Appears in no apparent distress. slender, Behavior is calm, cooperative, tw2 appropriate for age. Neuro: Level of Consciousness is awake, alert, obeys commands, Oriented to person, place, time, situation. Cardiovascular: Patient's skin is warm and dry. Respiratory: Airway is patent Respiratory effort is even, unlabored, Respiratory pattern is regular, symmetrical. GI: No signs and/or symptoms were reported involving the gastrointestinal system. : No signs and/or symptoms were reported regarding the genitourinary system. EENT: Reports dental pain. Derm: No signs and/or symptoms reported regarding the dermatologic system. Musculoskeletal: Range of motion: intact in all extremities. 17:41 Reassessment: Patient appears in no apparent distress at this time. Patient and/or tw2 family updated on plan of care and expected duration. Pain level reassessed. Patient is alert, oriented x 3, equal unlabored respirations, skin warm/dry/pink. Patient states feeling better. Patient states symptoms have improved. Vital Signs: 15:55 BP 125 / 71; Pulse 90; Resp 17; Temp 98.4(TE); Pulse Ox 100% on R/A; Weight 56.7 kg rb1 (R); Height 5 ft. 4 in. (162.56 cm) (R); Pain 7/10; 17:40 BP 135 / 68; Pulse 89; Resp 18; Pulse Ox 100% on R/A; tw2 15:55 Body Mass Index 21.46 (56.70 kg, 162.56 cm) rb1 ED Course: 15:19 Patient arrived in ED. as 15:55 Arm band placed on left wrist. rb1 15:57 Triage completed. rb1 16:30 [facility]C [facility]. kb 16:30 Elliot Antonio MD is Attending Physician. kb 16:31 Chyna Santana, THERESA is Primary Nurse. ca1 16:35 Bed in low position. Call light in reach. tw2 16:38 Marily Block RN is Primary Nurse. tw2 17:41 No provider procedures requiring assistance completed. Patient did not have IV access tw2 during this emergency room visit. Administered Medications: 17:14 Drug: TORadol 30 mg Route: IM; Site: left gluteus; tw2 17:41 Follow up: Response: No adverse reaction; Pain is decreased tw2 17:14 Not Given (Duplicate Order): Clindamycin 600 mg IM once tw2 17:15 Drug: Clindamycin 600 mg Route: PO; tw2 17:41 Follow up: Response: No adverse reaction; Pain is decreased tw2 Outcome: 16:52 Discharge ordered by MD. lewis 17:41 Patient left the ED. tw2 17:41 Discharged to home ambulatory. tw2 17:41 Condition: stable 17:41 Discharge instructions given to patient, Instructed on discharge instructions, follow up and referral plans. no drinking with medication, no driving heavy equipment, medication usage, Demonstrated understanding of instructions, follow-up care, medications, Prescriptions given X 2. Signatures: Yaz Rocha, STUDIO CONTROL OPERATOR-C IAN-Grecia Castillo Rebecca, RN RN rb1 Marily Block RN RN tw2 Chyna Santana RN RN ca1
--- NOTE | 2019-10-06 16:53 | EDPHYS ---
Physician Documentation [facility] Name: Clementina Lawler Age: 59 yrs Sex: Female : 1960 Arrival Date: 10/06/2019 Time: 15:19 Bed 8 Private MD: DEANN Physician Elliot Antonio HPI: 10/06 16:46 This 59 yrs old Female presents to ER via Ambulatory with complaints of kb Toothache. 16:46 The patient presents with pain, redness, swelling. The problem is located in the upper kb right third molar and upper right second molar. Onset: The symptoms/episode began/occurred 3 week(s) ago. Duration: The symptoms are continuous. Modifying factors: The symptoms are alleviated by nothing, the symptoms are aggravated by nothing. Associated signs and symptoms: Pertinent positives: pain, redness in area, swelling. Severity of symptoms: At their worst the symptoms were moderate, in the emergency department the symptoms are unchanged. The patient has experienced similar episodes in the past. The patient has not recently seen a physician. Pt reports she has been having problem with her teeth for a year s/p chemo and radiation. States she has been having severe pain to upper right side for 3 weeks. Has been waiting to see her dentist, but he won't be back in town until 10/14/19 and she couldn't wait any longer. Reports she is supposed to have all of her teeth pulled and get dentures. . Historical: - Allergies: 15:55 No Known Allergies; rb1 - PMHx: 15:55 *no blood pressure on right*; Anxiety; BREAST CA; Chronic pain; Depression; rb1 Hypothyroidism; - PSHx: 15:55 lumpectomy with lymph node removal; oophorectomy; salpingectomy; rb1 - Immunization history:: Adult Immunizations up to date. - Social history:: Smoking status: Patient uses tobacco products, smokes one pack cigarettes per day. - Ebola Screening: : Patient negative for fever greater than or equal to 101.5 degrees Fahrenheit, and additional compatible Ebola Virus Disease symptoms. ROS: 16:49 Constitutional: Negative for fever, chills, and weight loss, Neck: Negative for injury, kb pain, and swelling, Cardiovascular: Negative for chest pain, palpitations, and edema, Respiratory: Negative for shortness of breath, cough, wheezing, and pleuritic chest pain, Abdomen/GI: Negative for abdominal pain, nausea, vomiting, diarrhea, and constipation, MS/Extremity: Negative for injury and deformity, Skin: Negative for injury, rash, and discoloration, Neuro: Negative for headache, weakness, numbness, tingling, and seizure. 16:49 ENT: Positive for dental pain. Exam: 16:49 Constitutional: This is a well developed, well nourished patient who is awake, alert, kb and in no acute distress. Head/Face: Normocephalic, atraumatic. Neck: Trachea midline, no thyromegaly or masses palpated, and no cervical lymphadenopathy. Supple, full range of motion without nuchal rigidity, or vertebral point tenderness. No Meningismus. Chest/axilla: Normal chest wall appearance and motion. Nontender with no deformity. No lesions are appreciated. Cardiovascular: Regular rate and rhythm with a normal S1 and S2. No gallops, murmurs, or rubs. Normal PMI, no JVD. No pulse deficits. Respiratory: Lungs have equal breath sounds bilaterally, clear to auscultation and percussion. No rales, rhonchi or wheezes noted. No increased work of breathing, no retractions or nasal flaring. Abdomen/GI: Soft, non-tender, with normal bowel sounds. No distension or tympany. No guarding or rebound. No evidence of tenderness throughout. Skin: Warm, dry with normal turgor. Normal color with no rashes, no lesions, and no evidence of cellulitis. MS/ Extremity: Pulses equal, no cyanosis. Neurovascular intact. Full, normal range of motion. Neuro: Awake and alert, GCS 15, oriented to person, place, time, and situation. Cranial nerves II-XII grossly intact. Motor strength 5/5 in all extremities. Sensory grossly intact. Cerebellar exam normal. Normal gait. 16:49 ENT: Dental exam: dental caries, that is severe, diffusely, fractured teeth are noted, missing teeth, pain, that is moderate, specifically in the upper right second molar (#2) and upper right first molar (#3). Vital Signs: 15:55 BP 125 / 71; Pulse 90; Resp 17; Temp 98.4(TE); Pulse Ox 100% on R/A; Weight 56.7 kg rb1 (R); Height 5 ft. 4 in. (162.56 cm) (R); Pain 7/10; 17:40 BP 135 / 68; Pulse 89; Resp 18; Pulse Ox 100% on R/A; tw2 15:55 Body Mass Index 21.46 (56.70 kg, 162.56 cm) rb1 MDM: 16:29 Patient medically screened. snw 16:46 Data reviewed: vital signs, nurses notes. Data interpreted: Pulse oximetry: on room air kb is 100 %. Interpretation: normal. 16:50 Counseling: I had a detailed discussion with the patient and/or guardian regarding: the kb historical points, exam findings, and any diagnostic results supporting the discharge/admit diagnosis, the need for outpatient follow up, a dentist, to return to the emergency department if symptoms worsen or persist or if there are any questions or concerns that arise at home. ED course: Pt reports she has had this same kind of pain in the past, but on the bottom and she was given antibiotics which helped. . Administered Medications: 17:14 Drug: TORadol 30 mg Route: IM; Site: left gluteus; tw2 17:41 Follow up: Response: No adverse reaction; Pain is decreased tw2 17:14 Not Given (Duplicate Order): Clindamycin 600 mg IM once tw2 17:15 Drug: Clindamycin 600 mg Route: PO; tw2 17:41 Follow up: Response: No adverse reaction; Pain is decreased tw2 Disposition: 10/06/19 16:52 Discharged to Home. Impression: Dental caries, unspecified. - Condition is Stable. - Discharge Instructions: Dental Pain, [id number], Dental Caries, [id number]. - Prescriptions for Clindamycin HCl 300 mg Oral Capsule - take 1 capsule by ORAL route every 6 hours for 10 days; 40 capsule. Tramadol 50 mg Oral Tablet - take 1 tablet by ORAL route every 8 hours as needed; 12 tablet. - Medication Reconciliation Form, Thank You Letter, Antibiotic Education, Prescription Opioid Use form. - Follow up: Private Physician; When: 2 - 3 days; Reason: Recheck today's complaints, Continuance of care, Re-evaluation by your physician. Follow up: Emergency Department; When: As needed; Reason: Worsening of condition. Addendum: 10/14/2019 11:11 Co-signature as Attending Physician, Elliot Antonio MD I agree with the assessment and c falk plan of care. Signatures: Yaz Rocha, PASTORAL WORKER-C PASTORAL WORKER-Ckb Elliot Antonio MD MD cha Therrien, Shelly, PASTORAL WORKER-C PASTORAL WORKER-Csnw Nadege Navarro, RN RN rb1 Marily Block RN RN tw2 Corrections: (The following items were deleted from the chart) 10/06 17:41 16:52 10/06/2019 16:52 Discharged to Home. Impression: Dental caries, unspecified. tw2 Condition is Stable. Forms are Medication Reconciliation Form, Thank You Letter, Antibiotic Education, Prescription Opioid Use. Follow up: Private Physician; When: 2 - 3 days; Reason: Recheck today's complaints, Continuance of care, Re-evaluation by your physician. Follow up: Emergency Department; When: As needed; Reason: Worsening of condition. kb
[2019-10-06] MEDS ORDERED: KETOROLAC 30 MG/ML INJ ONE (17:09)
[2019-10-06 19:07] VITALS: TEMP 98.4; O2SAT 100
[2019-10-06 19:08] VITALS: BP 135/68
== END 2019-10-06 17:41 | disposition home or self-care (01) ==
LOC: ER 15:17
DX: K02.9 Dental caries, unspecified (principal); F17.210 Nicotine dependence, cigarettes, uncomplicated; Z85.3 Personal history of malignant neoplasm of breast
CPT/HCPCS: 96372; 99283

== ENCOUNTER 2022-02-06 07:44 | Emergency (ER) | payer OTHER ==
--- OUTSIDE RECORDS SUMMARY | 2022-02-06 07:46 | XMS REPORT | Continuity of Care Document ---
:1960 Author Organization [facility] t Address [address] [place] [address] [address]. [address] [place] [address] Care Team Providers Name Role Phone NANCY Attending Clinician Unavailable RUBY Attending Clinician Unavailable KIAH Attending Clinician Unavailable MD MARY Attending Clinician Unavailable NAOMI Attending Clinician Unavailable MD Allie ORELLANA Attending Clinician Unavailable ELIZABETH Attending Clinician Unavailable MARY Admitting Clinician Unavailable REYNA Admitting Clinician Unavailable MD Allie ORELLANA Admitting Clinician Unavailable Payers Payer Name Policy Type Policy Number Effective Date Expiration Date S gabriellece MEDICARE PART B [facility] [id number] * Problems Condition Condition Condition Status Onset Resolution Last Treating Co mments Source Name Details Category Date Date Treatment Clinician Date Strain of Strain of Problem Active [facility] extensor extensor [facility] - pollicis pollicis Memori a longus longus l tendon tendon Outpati ent Clinics Closed Closed Problem Active [facility] torus torus [facility] - fracture fracture Memori a of distal of distal l end of end of Outpati left left ent radius, radius, Clinics initial initial encounter encounter Closed Closed Problem Active [facility] torus torus [facility] - fracture fracture Memori a of distal of distal l end of end of Outpati left left ent radius radius Clinics with with routine routine healing healing Pain in Pain in Problem Active [facility] joint of joint of [facility] - left foot left foot Renato maura l Outpati ent Clinics Closed Closed Problem Active [facility] nondisplac nondisplac Lissa kes - ed ed Memoria fracture fracture l of of Outpati proximal proximal ent phalanx of phalanx of Cl inics lesser toe lesser toe of left of left foot, foot, initial initial encounter encounter Pain in Pain in Problem Active [facility] joint of joint of [facility] - left wrist left wrist Me moria l [facility] Clinics Closed Closed Problem Active [facility] nondisplac nondisplac Lissa kes - ed ed Memoria fracture fracture l of of Outpati proximal proximal ent phalanx of phalanx of Cl inics lesser toe lesser toe of left of left foot with foot with routine routine healing healing Allergies, Adverse Reactions, Alerts Allergy Allergy Status Severity Reaction(s) Onset Inactive Treating Comm ents Source Name Type Date Date Clinician Risperda Adverse Active Info Not [facility] Reaction Available [facility] Medications Ordered Filled Start Stop Current Ordering Indication Dosage Frequency Signature Comments Components Source Medication Medication Date Date Medication? Clinician (SIG) Name Name Ibuprofen Ibuprofen Yes Naomi TK [address] [facility] Fan TID WITH [facility] - FOOD OR Memoria MILK l Outpati ent Clinics BuPROPion BuPROPion Yes Naomi TAKE ONE [facility] HCl HCl Fan (1) [facility] - TABLET(S) Memoria BY MOUTH l TWICE A Outpati DAY. ent Clinics Gabapentin Gabapentin Yes Naomi not [facility] Fan defined [facility] Wellbutrin Wellbutrin Yes Naomi not [facility] Fan defined [facility] amitriptyli amitriptyli Yes Naomi not [facility] ne ne Fan defined [facility] Tramadol Tramadol Yes Naomi not [facility] t HCl HCl Fan defined [facility] Fluoxetine Fluoxetine Yes Naomi not C [facility] Fan defined [facility] Levothyroxi Levothyroxi Yes Naomi not [facility] ne Sodium ne Sodium Fan defined [facility] Procedures This patient has no known procedures. Encounters Start End Encounter Admission Attending Care Care Encounter Source Date/Time Date/Time Type Type Clinicians Facility Department ID 2022-01-07 Outpatient [facility] [id number] [place] 15:56:03 [id number] [place] 2022-01-05 Outpatient [facility] [id number] [place] 14:13:45 [id number] [place] 2022-01-28 2022-01-28 Emergency NANCY, [facility] [id number] [place] 00:00:00 00:00:00 CHANDNI [facility] 2022-01-22 2022-01-22 Emergency RUBY [facility] [id number] [place] 00:00:00 00:00:00 NYASIA 008 Method i 2022-01-08 2022-01-13 Inpatient SALMA DUPONT [facility] [id number] [place] 00:00:00 00:00:00 219 Method i 2021-11-26 2021-12-14 Inpatient NAOMI, [facility] 064 [id number] [place] 00:00:00 00:00:00 NORMAN 971 Method i 2021-11-25 2021-11-25 Outpatient ELIZABETH, [facility] [id number] [place] 00:00:00 00:00:00 BYRON 700 Method i 2021-11-06 2021-11-06 Emergency RIVEDENILSON, [facility] [id number] [place] 00:00:00 00:00:00 NYASIA 899 Method i 2019-04-22 2019-04-22 [facility] [id number] [address] 14:30:00 14:30:00 [facility] Clinics 2019-03-26 2019-03-26 [facility] [id number] 13:30:00 13:30:00 t [facility] ent [facility] Results Test Description Test Time Test Comments Results Result Comments Source SARS-CoV-2 (COVID-19) RNA [Presence] in Respiratory sp ecimen by 2022-01-08 23:19:45 JOHAN with probe detection Test Item Value Reference Range Interpretation Comme nts SARS-CoV-2 (COVID-19) RNA [Presence] in Respiratory specimen by JOHAN Detected with probe detection (test code = 83454-7) Whether patient is employed in a healthcare setting (test code = No 96932-3) Whether the patient has symptoms related to condition of interest Y es (test code = 95511-5) Whether the patient was hospitalized for condition of interest (lupillo t No code = 75080-7) Whether the patient was admitted to intensive care unit (ICU) for N o condition of interest (test code = 94720-1) Whether patient resides in a congregate care setting (test code = N o 58012-4) status (test code = 80521-9) Unknown Date and time of symptom onset (test code = 97044-4) Unknown SARS-CoV-2 (COVID-19) RNA [Presence] in Respiratory specimen by JOHAN with probe [id number] 01:20:45 Test Item Value Reference Range Interpretation Comments SARS-CoV-2 (COVID-19) RNA Not detected Not-Detected [Presence] in Respiratory specimen by JOHAN with probe detection (test code = 17575-5) Whether patient is employed in a healthcare setting (test code = 21058-9) Whether the patient has symptoms related to condition of interest (test code = 13622-0) Patient was hospitalized because of this condition (test code = 49102-1) Whether the patient was admitted to intensive care unit (ICU) for condition of interest (test code = 22424-4) Whether patient resides in a congregate care setting (test code = 62835-0)
[2022-02-06] MEDS ORDERED: LIDOCAINE 4% PATCH ONE (08:47)
[2022-02-06] MEDS ORDERED: CYCLOBENZAPRINE 10 MG TAB ONE (08:47)
--- NOTE | 2022-02-06 10:17 | EDPHYS ---
Physician Documentation [facility] Name: Clementina Lawler Age: 61 yrs Sex: Female : 1960 Arrival Date: 02/06/2022 Time: 07:46 Bed 13 Private MD: ED Physician Noe Lake HPI: 02/06 08:37 This 61 yrs old Female presents to ER via EMS with complaints of Pain All Over. pm1 08:37 Patient reports that she is having pain all over her body possibly from MS. Patient pm1 does not have a diagnosis of MS. Patient has chronic pain. Patient reports that she lost her medications from being kicked out of her current home. Patient was living with her brother and prior to that she was living with her father until he . Patient is requesting a refill of her medications. Patient reports multiple family stressors that are making her pain worse. Patient reports she also presented to the ER for transfer to [facility] in order to find a PCP. Severity of symptoms: in the emergency department the symptoms are unchanged. The patient has experienced similar episodes in the past, chronically. The patient has not recently seen a physician, and does not have an established primary care provider. Historical: - Allergies: 07:50 No Known Allergies; ap3 - Home Meds: 07:50 Amitriptyline Oral [Active]; gabapentin Oral [Active]; Bupropion Oral [Active]; ap3 Prednisone Oral [Active]; Toradol Oral [Active]; - PMHx: 07:50 *no blood pressure on right*; Anxiety; BREAST CA; Chronic pain; Depression; ap3 Hypothyroidism; - Immunization history:: Client reports receiving the Alexis \T\ Alexis single-dose vaccine. - Social history:: Smoking status: Patient reports the use of cigarette tobacco products, smokes one pack cigarettes per day. ROS: 08:37 Constitutional: Negative for fever, chills, and weight loss, Cardiovascular: Negative pm1 for chest pain, palpitations, and edema, Respiratory: Negative for shortness of breath, cough, wheezing, and pleuritic chest pain, Abdomen/GI: Negative for abdominal pain, nausea, vomiting, diarrhea, and constipation. 08:37 MS/Extremity: Negative for injury and deformity, Skin: Negative for injury, rash, and discoloration, Neuro: Negative for headache, weakness, numbness, tingling, and seizure. 08:37 Back: Positive for pain at rest, of the thoracic area. 08:37 All other systems are negative. Exam: 08:37 Constitutional: This is a well developed, well nourished patient who is awake, alert, pm1 and in no acute distress. Head/Face: Normocephalic, atraumatic. Neck: Trachea midline, no thyromegaly or masses palpated, and no cervical lymphadenopathy. Supple, full range of motion without nuchal rigidity, or vertebral point tenderness. No Meningismus. 08:37 Skin: Warm, dry with normal turgor. Normal color with no rashes, no lesions, and no evidence of cellulitis. MS/ Extremity: Pulses equal, no cyanosis. Neurovascular intact. Full, normal range of motion. 08:37 Eyes: Exam is negative for acute changes, Extraocular movements: no acute changes, Conjunctiva: no acute changes. 08:37 ENT: Exam is negative for acute changes, Mouth: no acute changes, Lips: normal, moist, Oral mucosa: normal, pink and intact, moist. 08:37 Cardiovascular: Exam negative for acute changes, Rate: normal, Rhythm: regular, Pulses: no pulse deficits are appreciated, Heart sounds: normal. 08:37 Respiratory: Exam negative for acute changes, respiratory distress, shortness of breath, Breath sounds: are clear throughout. 08:37 Abdomen/GI: Exam negative for acute changes, Palpation: abdomen is soft and non-tender, in all quadrants. 08:37 Back: vertebral tenderness, is not appreciated, muscle spasm, is appreciated in the left scapular area, right scapular area and thoracic area, patient reports palpation to area results in improvement in her pain. Feels like a massage improving her pain. 08:37 Neuro: Exam negative for acute changes, Orientation: is normal, Mentation: is normal, Cranial nerves: CN II- XII are normal as tested, Cerebellar function: normal finger to nose testing, Motor: is normal, moves all fours. Vital Signs: 07:49 BP 156 / 73; Pulse 88; Resp 17; Temp 98.8; Pulse Ox 100% ; Weight 61.23 kg; Height 5 ap3 ft. 4 in. (162.56 cm); Pain 8/10; 08:49 BP 145 / 75; Pulse 78; Pulse Ox 100% on R/A; ap3 09:29 BP 144 / 75; Pulse 76; Pulse Ox 98% on R/A; ap3 10:08 BP 132 / 78; Pulse 76; Pulse Ox 97% on R/A; ap3 07:49 Body Mass Index 23.17 (61.23 kg, 162.56 cm) ap3 MDM: 08:03 Patient medically screened. pm1 10:15 Data reviewed: vital signs. Data interpreted: Pulse oximetry: on room air is 97 %. pm1 Interpretation: normal. Counseling: I had a detailed discussion with the patient and/or guardian regarding: the historical points, exam findings, and any diagnostic results supporting the discharge/admit diagnosis, the need for outpatient follow up, a family practitioner, to return to the emergency department if symptoms worsen or persist or if there are any questions or concerns that arise at home. Administered Medications: 08:47 Drug: Flexeril (cyclobenzaprine) 10 mg Route: PO; ap3 11:01 Follow up: Response: No adverse reaction ap3 08:48 Drug: Lidoderm Patch 5 % (700 mg/patch) 1 patches Route: Topical; Site: affected area; ap3 11:01 Follow up: Response: No adverse reaction ap3 Disposition: 11:13 Co-signature as Attending Physician, Noe Lake MD I agree with the assessment and kdr plan of care. Disposition Summary: 02/06/22 10:16 Discharge Ordered Location: Home pm1 Problem: new pm1 Symptoms: have improved pm1 Condition: Stable pm1 Diagnosis - Chronic pain, not elsewhere classified pm1 Followup: pm1 - With: Emergency Department - When: As needed - Reason: Worsening of condition Followup: pm1 - With: Private Physician - When: 2 - 3 days - Reason: Recheck today's complaints, Continuance of care, Re-evaluation by your physician Discharge Instructions: - Discharge Summary Sheet pm1 - Chronic Pain, Adult pm1 Forms: - Medication Reconciliation Form pm1 - Thank You Letter pm1 - Antibiotic Education pm1 - Prescription Opioid Use pm1 Prescriptions: - Lidoderm 5 % Topical adhesive patch,medicated - apply 1 patch by TRANSDERMAL route once daily As needed 12 hours on and 12 pm1 hours off in a 24 hour period; 10 patch; Refills: 0, Product Selection Permitted - Dayima 160-9-4.8 mcg/actuation Inhalation HFA aerosol inhaler - inhale 2 puff by INHALATION route 2 times per day; 1 Inhaler; Refills: 0, pm1 Product Selection Permitted - Ventolin HFA 90 mcg/actuation Inhalation HFA aerosol inhaler - inhale 1 puff by INHALATION route every 4-6 hours As needed; 1 Inhaler; pm1 Refills: 0, Product Selection Permitted - gabapentin 800 mg Oral tablet - take 1 tablet by ORAL route 3 times per day; 90 tablet; Refills: 0, Product pm1 Selection Permitted - Cyclobenzaprine 10 mg Oral Tablet - take 1 tablet by ORAL route every 8 hours As needed; 30 tablet; Refills: 0, pm1 Product Selection Permitted Signatures: Noe Lake MD MD kdr Marinas, Patrick, NP [employer]CH[employer]ICIAN pm1 Leticia Barry, RN RN ap3
--- NOTE | 2022-02-06 10:17 | ER ---
Nurse's Notes [facility] Name: Clementina Lawler Age: 61 yrs Sex: Female : 1960 Arrival Date: 02/06/2022 Time: 07:46 Bed 13 Private MD: Diagnosis: Chronic pain, not elsewhere classified Presentation: 02/06 07:49 Chief complaint: EMS states: they were called to a home for a patient complaining of ap3 pain all over from a history of falls. patient states she believes the falls are related to her hx of MS. Patient also reports multiple life events that have increased her stress level recently. Coronavirus screen: At this time, the client does not indicate any symptoms associated with coronavirus-19. Ebola Screen: No symptoms or risks identified at this time. Initial Sepsis Screen: Does the patient meet any 2 criteria? No. Patient's initial sepsis screen is negative. Does the patient have a suspected source of infection? No. Patient's initial sepsis screen is negative. Risk Assessment: Do you want to hurt yourself or someone else? Patient reports no desire to harm self or others. Onset of symptoms was February 06, 2022. 07:49 Method Of Arrival: EMS: [facility] ap3 07:49 Acuity: AWA 4 ap3 Triage Assessment: 07:52 General: Appears in no apparent distress. Behavior is calm, cooperative. Pain: ap3 Complains of pain in "all over" Pain currently is 8 out of 10 on a pain scale. Neuro: Level of Consciousness is awake, alert, obeys commands, Oriented to person, place, time, situation, Speech is normal. Cardiovascular: Patient's skin is warm and dry. Respiratory: Airway is patent Respiratory effort is even, unlabored, Respiratory pattern is regular, symmetrical. Historical: - Allergies: 07:50 No Known Allergies; ap3 - Home Meds: 07:50 Amitriptyline Oral [Active]; gabapentin Oral [Active]; Bupropion Oral [Active]; ap3 Prednisone Oral [Active]; Toradol Oral [Active]; - PMHx: 07:50 *no blood pressure on right*; Anxiety; BREAST CA; Chronic pain; Depression; ap3 Hypothyroidism; - Immunization history:: Client reports receiving the Alexis \\T\\ Alexis single-dose vaccine. - Social history:: Smoking status: Patient reports the use of cigarette tobacco products, smokes one pack cigarettes per day. Screenin:53 Abuse screen: Denies threats or abuse. Nutritional screening: No deficits noted. ap3 Tuberculosis screening: No symptoms or risk factors identified. Fall Risk Fall in past 12 months (25 points). Secondary diagnosis (15 points) multiple fall hx. No IV (0 pts). Ambulatory Aid- None/Bed Rest/Nurse Assist (0 pts). Gait- Normal/Bed Rest/Wheelchair (0 pts) Mental Status- Oriented to own ability (0 pts). Total Coronel Fall Scale indicates High Risk Score (45 or more points). Fall prevention measures have been instituted. Side Rails Up X 2 Placed Close to Nursing Station Frequent Obs/Assessments Occuring As available patient and family educated on Fall Prevention Program and Strategies. Assessment: 08:51 Reassessment: patient ambulated unassisted to restroom. no injuries to report. ap3 Vital Signs: 07:49 BP 156 / 73; Pulse 88; Resp 17; Temp 98.8; Pulse Ox 100% ; Weight 61.23 kg; Height 5 ap3 ft. 4 in. (162.56 cm); Pain 8/10; 08:49 BP 145 / 75; Pulse 78; Pulse Ox 100% on R/A; ap3 09:29 BP 144 / 75; Pulse 76; Pulse Ox 98% on R/A; ap3 10:08 BP 132 / 78; Pulse 76; Pulse Ox 97% on R/A; ap3 07:49 Body Mass Index 23.17 (61.23 kg, 162.56 cm) ap3 ED Course: 07:46 Patient arrived in ED. eb 07:48 Leticia Barry, THERESA is Primary Nurse. ap3 07:50 Triage completed. ap3 07:54 Arm band placed on right wrist. ap3 07:54 Patient has correct armband on for positive identification. Bed in low position. Call ap3 light in reach. Side rails up X2. laborer shipyard on. Pulse ox on. NIBP on. Door closed. Noise minimized. Warm blanket given. 08:03 Sergio Guzman NP is PHCP. pm1 08:03 Noe Lake MD is Attending Physician. pm1 11:00 No provider procedures requiring assistance completed. Patient did not have IV access ap3 during this emergency room visit. Administered Medications: 08:47 Drug: Flexeril (cyclobenzaprine) 10 mg Route: PO; ap3 11:01 Follow up: Response: No adverse reaction ap3 08:48 Drug: Lidoderm Patch 5 % (700 mg/patch) 1 patches Route: Topical; Site: affected area; ap3 11:01 Follow up: Response: No adverse reaction ap3 Outcome: 10:16 Discharge ordered by MD. pm1 11:01 Discharged to home ambulatory. ap3 11:01 Condition: good 11:01 Discharge instructions given to patient, Instructed on discharge instructions, follow up and referral plans. medication usage, Demonstrated understanding of instructions, follow-up care, medications, Prescriptions given X 5 11:10 Patient left the ED. iw Signatures: Jazmine Agosto RN RN iw Sergio Guzman, ENRIQUE POTATO BUCKER pm1 Leticia Barry RN RN ap3 Miguelina Aguilar
[2022-02-06 11:52] VITALS: TEMP 98.8
[2022-02-06 11:55] VITALS: BP 132/78; O2SAT 97
== END 2022-02-06 11:10 | disposition home or self-care (01) ==
LOC: ER 07:44
DX: G89.29 Other chronic pain (principal); E03.9 Hypothyroidism, unspecified; F32.A Depression, unspecified; F17.210 Nicotine dependence, cigarettes, uncomplicated
CPT/HCPCS: 99284

== ENCOUNTER 2022-02-13 16:05 | Emergency (ER) | payer OTHER ==
--- OUTSIDE RECORDS SUMMARY | 2022-02-13 16:07 | XMS REPORT | Continuity of Care Document ---
:1960 Author Organization [facility] t Address [address] [place] [address] Care Team Providers Name Role Phone NANCY Attending Clinician Unavailable RUBY Attending Clinician Unavailable KIAH Attending Clinician Unavailable MD MARY Attending Clinician Unavailable NAOMI Attending Clinician Unavailable MD Allie ORELLANA Attending Clinician Unavailable ELIZABETH Attending Clinician Unavailable MARY Admitting Clinician Unavailable REYNA Admitting Clinician Unavailable MD Allie ORELLANA Admitting Clinician Unavailable Payers Payer Name Policy Type Policy Number Effective Date Expiration Date S ource MEDICARE PART B [facility] [id number] * Problems Condition Condition Condition Status Onset Resolution Last Treating Co mments Source Name Details Category Date Date Treatment Clinician Date Strain of Strain of Problem Active NPI :174 extensor extensor [id number] pollicis pollicis longus longus tendon tendon Closed Closed Problem Active NPI:174 torus torus [id number] fracture fracture of distal of distal end of end of left left radius, radius, initial initial encounter encounter Closed Closed Problem Active NPI:174 torus torus [id number] fracture fracture of distal of distal end of end of left left radius radius with with routine routine healing healing Pain in Pain in Problem Active NPI:174 joint of joint of 974089 9 left foot left foot Closed Closed Problem Active NPI:174 nondisplac nondisplac 04 46556 ed ed fracture fracture of of proximal proximal phalanx of phalanx of lesser toe lesser toe of left of left foot, foot, initial initial encounter encounter Pain in Pain in Problem Active NPI:174 joint of joint of 563165 9 left wrist left wrist Closed Closed Problem Active NPI:174 nondisplac nondisplac 04 74839 ed ed fracture fracture of of proximal proximal phalanx of phalanx of lesser toe lesser toe of left of left foot with foot with routine routine healing healing Allergies, Adverse Reactions, Alerts Allergy Allergy Status Severity Reaction(s) Onset Inactive Treating Comm ents Source Name Type Date Date Clinician Risperda Adverse Active Info Not NPI:1 74 l Reaction Available 44351 79 Medications Ordered Filled Start Stop Current Ordering Indication Dosage Frequency Signature Comments Components Source Medication Medication Date Date Medication? Clinician (SIG) Name Name Ibuprofen Ibuprofen Yes Naomi TK 1 T PO NPI:174 Fan TID WITH [id number] FOOD OR MILK BuPROPion BuPROPion Yes Naomi TAKE ONE NPI:174 HCl HCl Fan (1) 9293216 TABLET(S) BY MOUTH TWICE A DAY. Gabapentin Gabapentin Yes Naomi not N PI:174 Fan defined 8412901 Wellbutrin Wellbutrin Yes Naomi not N PI:174 Fan defined 1436156 amitriptyli amitriptyli Yes Naomi not NPI:174 ne ne Fan defined 5215385 Tramadol Tramadol Yes Naomi not NPI:1 74 HCl HCl Fan defined 7852889 Fluoxetine Fluoxetine Yes Naomi not N PI:174 Fan defined 7351925 Levothyroxi Levothyroxi Yes Naomi not NPI:174 ne Sodium ne Sodium Fan defined 0330020 Procedures This patient has no known procedures. Encounters Start End Encounter Admission Attending Care Care Encounter Source Date/Time Date/Time Type Type Clinicians Facility Department ID 2022-01-07 Outpatient [facility] [id number] [place] 15:56:03 [id number] [place] 2022-01-05 Outpatient [facility] [id number] [place] 14:13:45 [id number] [place] 2022-01-28 2022-01-28 Emergency NANCY, [facility] [id number] [place] 00:00:00 00:00:00 CHANDNI 019 Method i 2022-01-22 2022-01-22 Emergency RIVENES, [facility] [id number] [place] 00:00:00 00:00:00 NYASIA 008 Method i 2022-01-08 2022-01-13 Inpatient KIAH, [place] [id number] [place] 00:00:00 00:00:00 219 Method i 2021-11-26 2021-12-14 Inpatient NAOMI, [place] [id number] [place] 00:00:00 00:00:00 NORMAN 971 Method i 2021-11-25 2021-11-25 Outpatient ELIZABETH, [facility] [id number] [place] 00:00:00 00:00:00 BYRON Alcantar Method i 2021-11-06 2021-11-06 Emergency RUBY, [facility] [id number] [place] 00:00:00 00:00:00 NYASIA 899 Method i 2019-04-22 2019-04-22 [facility] [id number] NPI:174 14:30:00 14:30:00 t [facility] [id number] 79 and Joint [facility] 2019-03-26 2019-03-26 [facility] [id number] NPI:174 13:30:00 13:30:00 t Bone Bone and 47024 79 and Joint [facility] Results Test Description Test Time Test Comments Results Result Comments Source SARS-CoV-2 (COVID-19) RNA [Presence] in Respiratory sp ecimen by 2022-01-08 23:19:45 JOHAN with probe detection Test Item Value Reference Range Interpretation Comme nts SARS-CoV-2 (COVID-19) RNA [Presence] in Respiratory specimen by JOHAN Detected with probe detection (test code = 67007-5) Whether patient is employed in a healthcare setting (test code = No 67175-6) Whether the patient has symptoms related to condition of interest Y es (test code = 15874-4) Whether the patient was hospitalized for condition of interest (lupillo t No code = 28865-2) Whether the patient was admitted to intensive care unit (ICU) for N o condition of interest (test code = 73192-6) Whether patient resides in a congregate care setting (test code = N o 74008-8) status (test code = 79996-7) Unknown Date and time of symptom onset (test code = 39826-0) Unknown SARS-CoV-2 (COVID-19) RNA [Presence] in Respiratory specimen by JOHAN with probe [id number] 01:20:45 Test Item Value Reference Range Interpretation Comments SARS-CoV-2 (COVID-19) RNA Not detected Not-Detected [Presence] in Respiratory specimen by JOHAN with probe detection (test code = 48503-1) Whether patient is employed in a healthcare setting (test code = 15875-6) Whether the patient has symptoms related to condition of interest (test code = 66795-3) Patient was hospitalized because of this condition (test code = 29667-4) Whether the patient was admitted to intensive care unit (ICU) for condition of interest (test code = 90800-1) Whether patient resides in a congregate care setting (test code = 94846-8)
[2022-02-13] MEDS ORDERED: HYDROCODONE/APAP 5/325 MG TAB ONE (17:00)
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
[2022-02-13 18:29] VITALS: BP 107/73; TEMP 97.2; O2SAT 100
== END 2022-02-13 18:24 | disposition home or self-care (01) ==
LOC: ER 16:05
DX: R07.89 Other chest pain (principal); Y04.8XXA Assault by other bodily force, initial encounter; Z85.3 Personal history of malignant neoplasm of breast; Z88.3 Allergy status to other anti-infective agents; Z88.8 Allergy status to other drugs, medicaments and biological substances
CPT/HCPCS: 71250; 74176; 99283

== ENCOUNTER 2022-02-24 01:55 | Emergency (ER) | payer OTHER ==
--- OUTSIDE RECORDS SUMMARY | 2022-02-24 01:58 | XMS REPORT | Continuity of Care Document ---
:1960 Author Organization [facility] t Address [address] [place] [address] [address] [place] [address] Care Team Providers Name Role Phone CLEWING Attending Clinician Unavailable NANCY Attending Clinician Unavailable RUBY Attending Clinician Unavailable KIAH Attending Clinician Unavailable MD MARY Attending Clinician Unavailable NAOMI Attending Clinician Unavailable MD Allie ORELLANA Attending Clinician Unavailable ELIZABETH Attending Clinician Unavailable CLE Admitting Clinician Unavailable MARY Admitting Clinician Unavailable REYNA Admitting Clinician Unavailable MD Allie ORELLANA Admitting Clinician Unavailable Payers Payer Name Policy Type Policy Number Effective Date Expiration Date S ource MEDICARE PART B [facility] [id number] * Problems Condition Condition Condition Status Onset Resolution Last Treating Co mments Source Name Details Category Date Date Treatment Clinician Date Strain of Strain of Problem Active 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 - [facility] longus longus [facility] tendon tendon [facility] Closed Closed Problem Active Common torus torus [facility] fracture fracture - [facility] of distal of distal St end of end of [facility] left left [facility] radius, radius, Center initial initial encounter encounter Closed Closed Problem Active Common torus torus [facility] fracture fracture - [facility] of distal of distal St end of end of kes left left [facility] radius radius Center with with routine routine healing healing Pain in Pain in Problem Active Common joint of joint of [facility] left foot left foot - [facility] I [facility] Closed Closed Problem Active Common nondisplac nondisplac Sp celsa ed ed - [facility]I fracture fracture [facility] [place] proximal proximal Medica l phalanx of phalanx of Ce [facility]ter lesser toe lesser toe of left of left foot, foot, initial initial encounter encounter Pain in Pain in Problem Active Common joint of joint of Spirit left wrist left wrist - [facility] Closed Closed Problem Active Common nondisplac nondisplac Sp celsa ed ed - [facility] fracture [facility] proximal proximal Medica l phalanx of phalanx of Ce nter lesser toe lesser toe of left of left foot with foot with routine routine healing healing Allergies, Adverse Reactions, Alerts Allergy Allergy Status Severity Reaction(s) Onset Inactive Treating Comm ents Source Name Type Date Date Clinician Risperda Adverse Active Info Not Commo n l Reaction Available Spiri t - [facility] Medications Ordered Filled Start Stop Current Ordering Indication Dosage Frequency Signature Comments Components Source Medication Medication Date Date Medication? Clinician (SIG) Name Name Ibuprofen Ibuprofen Yes Naomi TK 1 T PO Common Fan TID WITH [facility] FOOD OR - [facility] MILK [facility] BuPROPion BuPROPion Yes Naomi TAKE ONE Common HCl HCl Fan (1) [facility] TABLET(S) - [facility] BY MOUTH St TWICE A [facility] DAY. [facility] Gabapentin Gabapentin Yes Naomi not C ommon Fan defined [facility] Wellbutrin Wellbutrin Yes Naomi not C ommon Fan defined [facility] amitriptyli amitriptyli Yes Naomi not Common ne ne Fan defined [facility] Tramadol Tramadol Yes Naomi not Commo n HCl HCl Fan defined [facility] Fluoxetine Fluoxetine Yes Naomi not C ommon Fan defined [facility] Levothyroxi Levothyroxi Yes Naomi not Common ne Sodium ne Sodium Fan defined [facility] Procedures This patient has no known procedures. Encounters Start End Encounter Admission Attending Care Care Encounter Source Date/Time Date/Time Type Type Clinicians Facility Department ID 2022-01-07 Outpatient [facility] [id number] [place] 15:56:03 [id number] [facility] 2022-01-05 Outpatient [facility] [id number] [place] 14:13:45 [id number] [facility] 2022-02-13 2022-02-18 [place] [id number] [place] 00:00:00 00:00:00 PRECIOUS [facility] 2022-01-28 2022-01-28 Emergency [place] [id number] [place] 00:00:00 00:00:00 CHANDNI 019 Method i 2022-01-22 2022-01-22 Emergency RIVENES, [facility] [id number] [place] 00:00:00 00:00:00 [place]AS[place] 008 Method i 2022-01-08 2022-01-13 Inpatient KIAH, [place] [id number] [place] 00:00:00 00:00:00 219 Method i 2021-11-26 2021-12-14 Inpatient NAOMI, [facility] [id number] [place] 00:00:00 00:00:00 NORMAN 971 Method i 2021-11-25 2021-11-25 Outpatient ELIZABETH, [facility] [id number] [place] 00:00:00 00:00:00 BYRON 700 Method i 2021-11-06 2021-11-06 Emergency RIVEDENILSON, [facility] [id number] [place] 00:00:00 00:00:00 NYASIA 899 Method i 2019-04-22 2019-04-22 [facility] [id number] [place] 14:30:00 14:30:00 [facility] 2019-03-26 2019-03-26 [facility] [id number] Common 13:30:00 13:30:00 t [facility] Results Test Description Test Time Test Comments Results Result Comments Source SARS-CoV-2 (COVID-19) RNA [Presence] in Respiratory sp ecimen by 2022-02-14 13:37:38 JOHAN with probe detection Test Item Value Reference Range Interpretation Comme nts SARS-CoV-2 (COVID-19) RNA [Presence] in Respiratory specimen by Not detected JOHAN with probe detection (test code = 49807-0) Whether patient is employed in a healthcare setting (test code = Un known 04700-1) Whether the patient has symptoms related to condition of interest U nknown (test code = 43079-4) Whether the patient was hospitalized for condition of interest Unkn own (test code = 90192-8) Whether the patient was admitted to intensive care unit (ICU) for U nknown condition of interest (test code = 05864-1) Whether patient resides in a congregate care setting (test code = U nknown 89160-3) status (test code = 75007-9) Unknown Date and time of symptom onset (test code = 51312-8) Unknown SARS-CoV-2 (COVID-19) RNA [Presence] in Respiratory specimen by JOHAN with probe [id number] 23:19:45 Test Item Value Reference Range Interpretation Comments SARS-CoV-2 (COVID-19) RNA [Presence] Detected in Respiratory specimen by JOHAN with probe detection (test code = 68269-2) Whether patient is employed in a No healthcare setting (test code = 75077-4) Whether the patient has symptoms Yes related to condition of interest (test code = 30649-5) Whether the patient was hospitalized No for condition of interest (test code = 74868-1) Whether the patient was admitted to No intensive care unit (ICU) for condition of interest (test code = 77842-3) Whether patient resides in a No congregate care setting (test code = 55147-5) status (test code = Unknown 15911-3) Date and time of symptom onset (test Unknown code = 39531-8) SARS-CoV-2 (COVID-19) RNA [Presence] in Respiratory specimen by JOHAN with probe [id number] 01:20:45 Test Item Value Reference Range Interpretation Comments SARS-CoV-2 (COVID-19) RNA Not detected Not-Detected [Presence] in Respiratory specimen by JOHAN with probe detection (test code = 31331-1) Whether patient is employed in a healthcare setting (test code = 71512-9) Whether the patient has symptoms related to condition of interest (test code = 04821-9) Patient was hospitalized because of this condition (test code = 41119-5) Whether the patient was admitted to intensive care unit (ICU) for condition of interest (test code = 49264-5) Whether patient resides in a congregate care setting (test code = 09486-1)
--- NOTE | 2022-02-24 02:57 | EDPHYS ---
Physician Documentation [facility] Name: Clementina Lawler Age: 61 yrs Sex: Female : 1960 Arrival Date: 02/24/2022 Time: 02:02 Bed 12 Private MD: ED Physician Herrera Garner HPI: 02/24 02:45 This 61 yrs old Female presents to ER via Ambulatory with complaints of Back Pain. rn 02:45 The patient presents with pain that is chronic. The symptoms are located in the low rn back. Onset: The symptoms/episode began/occurred at an unknown time. The pain does not radiate. Associated signs and symptoms: Pertinent negatives: abdominal pain, chest pain, fever, hematuria, incontinence, nausea, numbness, tingling, urinary retention, vomiting, weakness. Modifying factors: The patient symptoms are alleviated by flexeril , the patient symptoms are aggravated by any movement. Severity of symptoms: At their worst the symptoms were moderate, in the emergency department the symptoms have improved. The patient has experienced similar episodes in the past, chronically. Pt reports chronic back pain from distant injury, takes flexeril, no new injury or symptoms, pain was worse earlier but took her flexeril and zyprexa and now feeling better. Someone drove her here today. Pt states feels better and wants to go home but would like prescription pain medication.. Historical: - Allergies: 02:37 Amitriptyline; jb4 02:37 aripiprazole; jb4 02:37 Azithromycin; jb4 02:37 Carbamazepine; jb4 02:37 citalopram hydrobromide; jb4 02:37 paroxetine HCl; jb4 02:37 RISPERIDONE; jb4 - PMHx: 02:37 *no blood pressure on right*; Anxiety; BREAST CA; Chronic pain; Depression; jb4 Hypothyroidism; - Immunization history:: Adult Immunizations. - Social history:: Smoking status: Patient reports the use of cigarette tobacco products, smokes one pack cigarettes per day. Patient uses alcohol, Patient/guardian denies using street drugs. - Family history:: not pertinent. - Hospitalizations: : No recent hospitalization is reported. ROS: 02:45 Constitutional: Negative for fever, chills, and weight loss, Cardiovascular: Negative rn for chest pain, palpitations, and edema, Respiratory: Negative for shortness of breath, cough, wheezing, and pleuritic chest pain, Abdomen/GI: Negative for abdominal pain, nausea, vomiting, diarrhea, and constipation, Back: Negative for injury and pain, MS/Extremity: Negative for injury and deformity, Neuro: Negative for headache, weakness, numbness, tingling, and seizure. Exam: 02:45 Constitutional: This is a well developed, well nourished patient who is somnolent, rn awakens to voice and tactile stimulation, but falls asleep while talking, already seems medicated. Head/Face: Normocephalic, atraumatic. Neck: Trachea midline, no masses palpated, and no cervical lymphadenopathy. Supple, full range of motion without nuchal rigidity, or vertebral point tenderness. No Meningismus. Cardiovascular: Regular rate and rhythm. No pulse deficits. Abdomen/GI: Soft, non-tender Back: No spinal tenderness. No costovertebral tenderness. Full range of motion. MS/ Extremity: Pulses equal, no cyanosis. Neurovascular intact. Full, normal range of motion. Equal circumference. Neuro: Somnolent, awakens easily to voice. Motor strength 5/5 in all extremities. Sensory grossly intact. Vital Signs: 02:34 BP 120 / 87; Pulse 82; Resp 16; Temp 96.7(TE); Pulse Ox 97% on R/A; Weight 54.43 kg jb4 (R); Height 5 ft. 4 in. (162.56 cm) (R); Pain 7/10; 02:34 Body Mass Index 20.60 (54.43 kg, 162.56 cm) jb4 MDM: 02:03 Patient medically screened. rn 02:45 Differential diagnosis: arthritis, chronic back pain, Fatigue Osteoarthritis sprain. rn Data reviewed: vital signs, nurses notes, and as a result, I will discharge patient. Counseling: I had a detailed discussion with the patient and/or guardian regarding: the historical points, exam findings, and any diagnostic results supporting the discharge/admit diagnosis, the need for outpatient follow up, to return to the emergency department if symptoms worsen or persist or if there are any questions or concerns that arise at home. Response to treatment: the patient's symptoms have mildly improved after treatment, and as a result, I will discharge patient. Special discussion: I discussed with the patient/guardian in detail that at this point there is no indication for admission to the hospital. It is understood, however, that if the symptoms persist or worsen the patient needs to return immediately for re-evaluation. ED course: Pt seems medicated already, stable vitals, no new injury, no signs or symptoms of acute spinal cord pathology. Will dc home without narcotic pain medication here or prescription as has had visit prior to this with overdose and requiring intubation. Recommended her flexeril/motrin/heat. . Administered Medications: No medications were administered Disposition Summary: 02/24/22 02:56 Discharge Ordered Location: Home rn Problem: chronic rn Symptoms: have improved rn Condition: Stable rn Diagnosis - Low back pain rn Followup: rn - With: Private Physician - When: As needed - Reason: Recheck today's complaints, Re-evaluation by your physician Forms: - Medication Reconciliation Form rn - Thank You Letter rn - Antibiotic zinc furnace charger - Prescription Opioid Use rn Signatures: Herrera Garner MD MD rn Bryson, James, RN RN jb4
--- NOTE | 2022-02-24 02:57 | ER ---
Nurse's Notes [facility] Name: Clementina Lawler Age: 61 yrs Sex: Female : 1960 Arrival Date: 02/24/2022 Time: 02:02 Bed 12 Private MD: Diagnosis: Low back pain Presentation: 02/24 02:34 Chief complaint: Patient states: Pt states my back is hurting in the middle very badly. jb4 Pt reports taking only Ibuprofen and zyprexa. Pt is lethargic and has trouble focusing. Coronavirus screen: At this time, the client does not indicate any symptoms associated with coronavirus-19. Ebola Screen: No symptoms or risks identified at this time. Initial Sepsis Screen: Does the patient meet any 2 criteria? No. Patient's initial sepsis screen is negative. Does the patient have a suspected source of infection? No. Patient's initial sepsis screen is negative. Risk Assessment: Do you want to hurt yourself or someone else? Patient reports no desire to harm self or others. Onset of symptoms was February 24, 2022. Transition of care: patient was not received from another setting of care. 02:34 Method Of Arrival: Ambulatory jb4 02:34 Acuity: AWA 4 jb4 Historical: - Allergies: 02:37 Amitriptyline; jb4 02:37 aripiprazole; jb4 02:37 Azithromycin; jb4 02:37 Carbamazepine; jb4 02:37 citalopram hydrobromide; jb4 02:37 paroxetine HCl; jb4 02:37 RISPERIDONE; jb4 - PMHx: 02:37 *no blood pressure on right*; Anxiety; BREAST CA; Chronic pain; Depression; jb4 Hypothyroidism; - Immunization history:: Adult Immunizations. - Social history:: Smoking status: Patient reports the use of cigarette tobacco products, smokes one pack cigarettes per day. Patient uses alcohol, Patient/guardian denies using street drugs. - Family history:: not pertinent. - Hospitalizations: : No recent hospitalization is reported. Screenin:22 Abuse screen: Denies threats or abuse. Nutritional screening: No deficits noted. jb4 Tuberculosis screening: No symptoms or risk factors identified. Fall Risk None identified. Assessment: 03:22 General: Appears in no apparent distress. comfortable, Behavior is calm, cooperative. jb4 Pain: Complains of pain in back Pain does not radiate. Pain currently is 6 out of 10 on a pain scale. Neuro: Herr Agitation-Sedation Scale (RASS): -1 Drowsy Level of Consciousness is alert, obeys commands, lethargic, Oriented to person, place, time, situation. Cardiovascular: Patient's skin is warm and dry. Respiratory: Airway is patent Respiratory effort is even, unlabored, Respiratory pattern is regular, symmetrical. Derm: Skin is intact, Skin is pink, warm \T\ dry. Vital Signs: 02:34 BP 120 / 87; Pulse 82; Resp 16; Temp 96.7(TE); Pulse Ox 97% on R/A; Weight 54.43 kg jb4 (R); Height 5 ft. 4 in. (162.56 cm) (R); Pain 7/10; 02:34 Body Mass Index 20.60 (54.43 kg, 162.56 cm) jb4 ED Course: 02:02 Patient arrived in ED. bp1 02:03 Herrera Garner MD is Attending Physician. rn 02:37 Triage completed. jb4 02:37 Arm band placed on right wrist. jb4 03:22 Patient has correct armband on for positive identification. jb4 03:22 No provider procedures requiring assistance completed. Patient did not have IV access jb4 during this emergency room visit. Administered Medications: No medications were administered Medication: 03:22 VIS not applicable for this client. jb4 Outcome: 02:56 Discharge ordered by . rn 03:22 Discharged to home ambulatory. jb4 03:22 Condition: stable 03:22 Discharge instructions given to patient, Instructed on discharge instructions, follow up and referral plans. Demonstrated understanding of instructions, follow-up care. 03:25 Patient left the ED. jb4 Signatures: Herrera Garner MD MD rn Bryson, James, RN RN jb4 Cecile Sanchez bp1
[2022-02-24 03:32] VITALS: BP 120/87; TEMP 96.7; O2SAT 97
== END 2022-02-24 03:25 | disposition home or self-care (01) ==
LOC: ER 01:55
DX: M54.50 Low back pain, unspecified (principal); F17.210 Nicotine dependence, cigarettes, uncomplicated; Z85.3 Personal history of malignant neoplasm of breast; Z88.1 Allergy status to other antibiotic agents; Z88.8 Allergy status to other drugs, medicaments and biological substances
CPT/HCPCS: 99281

== ENCOUNTER 2022-03-25 17:06 | Emergency (ER) | payer MEDICARE, OTHER ==
--- OUTSIDE RECORDS SUMMARY | 2022-03-25 17:13 | XMS REPORT | Continuity of Care Document ---
:1960 Author Organization [facility] t Address [address] [place] [address] Care Team Providers Name Role Phone Tenke Attending Clinician Unavailable CLELESLEYG Attending Clinician Unavailable NANCY Attending Clinician Unavailable RUBY Attending Clinician Unavailable KIAH Attending Clinician Unavailable MD MARY Attending Clinician Unavailable NAOMI Attending Clinician Unavailable MD Allie ORELLANA Attending Clinician Unavailable ELIZABETH Attending Clinician Unavailable JACOB Admitting Clinician Unavailable Juliet Monae Admitting Clinician Unavailable MAAME Admitting Clinician Unavailable MARY Admitting Clinician Unavailable REYNA Admitting Clinician Unavailable MD Allie ORELLANA Admitting Clinician Unavailable Payers Payer Name Policy Type Policy Number Effective Date Expiration Date S ource MEDICARE PART B [facility] [id number] * Problems Condition Condition Condition Status Onset Resolution Last Treating Co mments Source Name Details Category Date Date Treatment Clinician Date Strain of Strain of Problem Active 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 - [facility] longus longus St tendon tendon [facility] Closed Closed Problem Active Common torus torus Spirit fracture fracture - [facility] of distal of distal St end of end of kes left left Medical radius, radius, Center initial initial encounter encounter Closed Closed Problem Active Common torus torus Spirit fracture fracture - [facility] of distal of distal [facility] end of end of [facility] left left [facility] radius radius Center with with routine routine healing healing Pain in Pain in Problem Active Common joint of joint of Spirit left foot left foot - CH I [facility] Closed Closed Problem Active Common nondisplac nondisplac Sp celsa ed ed - CHI fracture fracture [facility] of of [facility] proximal proximal Medica l phalanx of phalanx of Ce nter lesser toe lesser toe of left of left foot, foot, initial initial encounter encounter Pain in Pain in Problem Active Common joint of joint of Spirit left wrist left wrist - [facility] Closed Closed Problem Active Common nondisplac nondisplac Sp celsa ed ed - CHI fracture fracture [facility] of of [facility] proximal proximal Medica l phalanx of phalanx of Ce nter lesser toe lesser toe of left of left foot with foot with routine routine healing healing Allergies, Adverse Reactions, Alerts Allergy Allergy Status Severity Reaction(s) Onset Inactive Treating Comm ents Source Name Type Date Date Clinician buprenor DA Active DE [facility]FF [facility] phine 6-12 [place] 00:00: d 00 [facility] naloxone DA Active DE JEFF [facility] 6-12 [place] 00:00: d 00 [facility] ondanset DA Active DE HEADACHE [facility] reji 6-12 [place] 00:00: d 00 [facility] escitalo DA Active DE [facility] pram 6-12 [place] 00:00: d 00 [facility] haloperi DA Active U SLUGG[facility]NESS [facility] A dol 6-12 [place] 00:00: d 00 [facility] haloperi DA Active U [facility] A dol 2-23 [place] 00:00: d 00 [facility] buprenor DA Active DE JEFF [facility] phine 2-19 [place] 00:00: d 00 [facility] naloxone DA Active DE JEFF [facility] 2-19 [place] 00:00: d 00 [facility] ondanset DA Active DE [facility]ACHE [facility] reji 2-19 [place] 00:00: d 00 [facility] escitalo DA Active DE JEFF [facility] pram 2-19 [place] 00:00: d 00 [facility] Risperda Adverse Active Info Not Commo n l Reaction Available [facility] - [facility] Medications Ordered Filled Start Stop Current Ordering Indication Dosage Frequency Signature Comments Components Source Medication Medication Date Date Medication? Clinician (SIG) Name Name Ibuprofen Ibuprofen Yes Naomi TK 1 T PO Common Fan TID WITH Spirit FOOD OR - [facility] BuPROPion BuPROPion Yes Naomi TAKE ONE Common HCl HCl Fan (1) Spirit TABLET(S) - [facility] BY MOUTH [facility] Gabapentin Gabapentin Yes Naomi not C ommon Fan defined Spirit - [facility] Wellbutrin Wellbutrin Yes Naomi not C ommon Fan defined Spirit - [facility] amitriptyli amitriptyli Yes Naomi not Common ne ne Fan defined [facility] Tramadol Tramadol Yes Naomi not Commo n HCl HCl Fan defined [facility] Fluoxetine Fluoxetine Yes Naomi not C ommon Fan defined Spirit - [facility] Levothyroxi Levothyroxi Yes Naomi not Common ne Sodium ne Sodium Fan defined [facility] Procedures This patient has no known procedures. Encounters Start End Encounter Admission Attending Care Care Encounter Source Date/Time Date/Time Type Type Clinicians Facility Department ID 2022-01-07 [id number] [place] 15:56:03 [id number] Critical access hospital 2022-01-05 [id number] [place] 14:13:45 [id number] Critical access hospital 2022-03-20 2022-03-20 Emergency EM Tejas Allen HCAPM LOLY [id number] [facility] 12:33:00 13:50:00 56 [facility] [place], operated [facility] 2022-03-20 2022-03-20 Emergency EM Tejas Allen HCAPM HCAPM [id number] [facility] 12:33:00 12:33:00 [id number] [facility] [place], [facility] 2022-02-13 2022-02-18 Inpatient CLEWING, [facility] [id number] [place] 00:00:00 00:00:00 PRECIOUS 157 [facility] 2022-01-28 2022-01-28 Emergency NANCY, [facility]4 [id number] [place] 00:00:00 00:00:00 CHANDNI 019 [facility] i 2022-01-22 2022-01-22 Emergency RIVENES, [facility] [id number] [place] 00:00:00 00:00:00 NYASIA 008 Method i 2022-01-08 2022-01-13 Inpatient KIAH, ITI [facility]4 [id number] [place] 00:00:00 00:00:00 219 [facility] i 2021-11-26 2021-12-14 Inpatient NAOMI, [facility]4 [id number] [place] 00:00:00 00:00:00 NORMAN 971 Method i 2021-11-25 2021-11-25 Outpatient ELIZABETH, [facility] [id number] [place] 00:00:00 00:00:00 BYRON 700 Method i 2021-11-06 2021-11-06 Emergency RUBY, [facility] [id number] [place] 00:00:00 00:00:00 NYASIA 899 Method i 2019-04-22 2019-04-22 [facility] [id number] Common 14:30:00 14:30:00 [facility] 2019-03-26 2019-03-26 [facility] [id number] Common 13:30:00 13:30:00 t [facility] Bone [facility] Spiri t and Joint [facility] - [facility] Results Test Description Test Time Test Comments Results Result Comments Source - XR KNEE 3 V RT 2022-03-20 13:22:00 [facility] 1960 Sex: F Name: LLUVIA BOOKER [facility] : 1960 Age/S: 61 / F [id number] Unit #: [id number] Loc: Giuseppe Thakur [address] Phys: Tejas Allen DO Acct: [id number] Dis Date: Status: REG ER PHONE #: [phone] Exam Date: 03/20/2022 1305 FAX #: Reason: pain EXAMS: CPT: [id number] XR KNEE 3 V RT [id number] Fluoro Time: DAP (Gy m2): Air Kerma (mGy): EXAMINATION(S): - XR KNEE 3 V RT INDICATION: pain COMPARISON: None available at time of dictation LOCATION: C3 FINDINGS/ IMPRESSION: Mild medial compartment degenerative changes. Grossly preserved lateral and patellofemoral compartments. Tiny joint effusion. No fracture or dislocation identified. at 1322 Reported and signed by: Asaf Dasilva M.D. CC: Tejas Allen DO PAGE 1 Signed Report Name[facility] 1960 Age/S: 61 / F [id number] [address] Unit #: [id number] Loc: [place] [address] Phys: Tejas lAlen DO Acct: [id number] Dis Date: Status: REG ER PHONE #: [phone] Exam Date: 03/20/2022 1305 FAX #: Reason: pain EXAMS: CPT: [id number] XR KNEE 3 V RT [id number] Fluoro Time: DAP (Gy m2): Air Kerma (mGy): <Continued> Technologist: RT Carlos(R) Trnscb Date/Time: 03/20/2022 (1322) [email or web address] Orig Print D/T: S: 03/20/2022 (1325) PAGE 2 Signed Report SARS-CoV-2 (COVID-19) RNA [Presence] in Respiratory sp ecimen by 2022-02-14 13:37:38 JOHAN with probe detection Test Item Value Reference Range Interpretation Comme nts SARS-CoV-2 (COVID-19) RNA [Presence] in Respiratory specimen by Not detected JOHAN with probe detection (test code = 84577-1) Whether patient is employed in a healthcare setting (test code = Un known 08072-6) Whether the patient has symptoms related to condition of interest U nknown (test code = 71066-5) Whether the patient was hospitalized for condition of interest Unkn own (test code = 93460-5) Whether the patient was admitted to intensive care unit (ICU) for U nknown condition of interest (test code = 50023-6) Whether patient resides in a congregate care setting (test code = U nknown 55360-6) status (test code = 43026-9) Unknown Date and time of symptom onset (test code = 86296-5) Unknown SARS-CoV-2 (COVID-19) RNA [Presence] in Respiratory specimen by JOAHN with probe [id number] 23:19:45 Test Item Value Reference Range Interpretation Comments SARS-CoV-2 (COVID-19) RNA [Presence] Detected in Respiratory specimen by JOHAN with probe detection (test code = 93164-8) Whether patient is employed in a No healthcare setting (test code = 76287-8) Whether the patient has symptoms Yes related to condition of interest (test code = 91887-6) Whether the patient was hospitalized No for condition of interest (test code = 03403-7) Whether the patient was admitted to No intensive care unit (ICU) for condition of interest (test code = 73546-6) Whether patient resides in a No congregate care setting (test code = 15423-3) status (test code = Unknown 80360-7) Date and time of symptom onset (test Unknown code = 39647-0) SARS-CoV-2 (COVID-19) RNA [Presence] in Respiratory specimen by JOHAN with probe [id number] 01:20:45 Test Item Value Reference Range Interpretation Comments SARS-CoV-2 (COVID-19) RNA Not detected Not-Detected [Presence] in Respiratory specimen by JOHAN with probe detection (test code = 08865-3) Whether patient is employed in a healthcare setting (test code = 60847-2) Whether the patient has symptoms related to condition of interest (test code = 15358-3) Patient was hospitalized because of this condition (test code = 64857-9) Whether the patient was admitted to intensive care unit (ICU) for condition of interest (test code = 98169-0) Whether patient resides in a congregate care setting (test code = 54813-7)
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
[2022-03-26 00:36] VITALS: BP 180/88; TEMP 97.6; O2SAT 99
== END 2022-03-25 23:27 | disposition home or self-care (01) ==
LOC: ER 17:06
DX: S22.059A Unspecified fracture of T5-T6 vertebra, initial encounter for closed fracture (principal); S70.02XA Contusion of left hip, initial encounter; F17.210 Nicotine dependence, cigarettes, uncomplicated; Z88.3 Allergy status to other anti-infective agents; Z88.5 Allergy status to narcotic agent; Z88.8 Allergy status to other drugs, medicaments and biological substances
CPT/HCPCS: 36415; 82565; 70450; 72125; 71260; 74177; 73080; 73110; 99284; Q9967

== ENCOUNTER 2023-02-28 12:25 | Emergency (ER) | payer MEDICARE ==
--- OUTSIDE RECORDS SUMMARY | 2023-02-28 12:29 | XMS REPORT | Continuity of Care Document ---
:1960 Author Organization [facility] t Address [address] [place] [address] Care Team Providers Name Role Phone DILIP IVEY Primary Care Physician Unavailable RehreAaron cordova DO Attending Clinician Jam Berumen DO Attending Clinician Sita Macedo MD Attending Clinician FOG_A_Provider Attending Clinician Unavailable Miguelina Kerns MA Attending Clinician Unavailable Deshazo_T Attending Clinician Unavailable Srini Nobles MD Attending Clinician IRENE CRUZ Attending Clinician Unavailable Irene Cruz DO Attending Clinician EDER ALVARADO Attending Clinician Unavailable Eder Alvarado MD Attending Clinician Jacob Sullivan MD Attending Clinician Tejas Allen Attending Clinician Unavailable PRECIOUS ISABEL Attending Clinician Unavailable CHANDNI CRUZ Attending Clinician Unavailable NYASIA BELTRAN Attending Clinician Unavailable SALMA DUPONT Attending Clinician Unavailable MD MERLY HERNANDEZ Attending Clinician Unavailable NORMAN SALGADO Attending Clinician Unavailable MD FELIPE ORELLANA Attending Clinician Unavailable BYRON JOHNSON Attending Clinician Unavailable SITA MACEDO Admitting Clinician Unavailable FOG_A_Provider Admitting Clinician Unavailable Deshazo_T Admitting Clinician Unavailable UNDEFINED Admitting Clinician Unavailable Bonilla Monae Admitting Clinician Unavailable PRECIOUS ISABEL Admitting Clinician Unavailable MERLY HERNANDEZ Admitting Clinician Unavailable FELIPE ORELLANA Admitting Clinician Unavailable MD FELIPE ORELLANA Admitting Clinician Unavailable Payers Payer Name Policy Type Policy Number Effective Date Expiration Date Nicholas garza MEDICARE PART B [id number] 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 00:00: Hospita glycoprote glycoprote 00 l in in antibody antibody disorder disorder (MOGAD) (MOGAD) Hypoxemia Hypoxemia Disease Active Met hodi 01-13 st 00:00: Hospita 00 l Hypoxia Hypoxia Disease Active Methodi 4 st 00:00: Hospita 00 l COVID-19 COVID-19 Disease Active Metho di virus virus 01-08 st detected detected 00:00: Hospit a 00 l Vision Vision Disease Active Methodi loss of loss of 2-18 st right eye right eye 00:00: Hosp tania 00 l Vision Vision Disease Active Methodi changes changes 2-18 st 00:00: Hospita 00 l Respirator Respirator Disease Recurre [facility] failure y failure nce [facility] requiring requiring 00:00: Medi mae intubation intubation 00 Ce nter Benzodiaze Benzodiaze Disease Active C [facility]15 [facility] overdose overdose 00[facility]: Medica l 00 Center Shock Shock Disease Recurre [facility] 00:00: Medical 00 [place] Anxiety Anxiety Disease Active 2008-10 Univers disorder disorder 2-18 ity of 00:00: [place] 00 Medical Branch Strain of Strain of Problem Active 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 - [facility] longus longus [facility] tendon tendon [facility] Closed Closed Problem Active Common torus torus Spirit fracture fracture - CHI of distal of distal St end of end of [facility] left left Medical radius, radius, Center initial initial encounter encounter Closed Closed Problem Active Common torus torus Spirit fracture fracture - [facility] of distal of distal St end of end of [facility] left left Medical radius radius Center with with routine routine healing healing Pain in Pain in Problem Active Common joint of joint of Spirit left foot left foot - [facility] Closed Closed Problem Active Common nondisplac nondisplac Sp celsa ed ed - CHI fracture fracture St of of [facility] proximal proximal Medica l phalanx of phalanx of Ce nter lesser toe lesser toe of left of left foot, foot, initial initial encounter encounter Pain in Pain in Problem Active Common joint of joint of Spirit left wrist left wrist - [facility] Closed Closed Problem Active Common nondisplac nondisplac Sp celsa ed ed - CHI fracture fracture St of of kes proximal proximal Medica l phalanx of phalanx of Ce nter lesser toe lesser toe of left of left foot with foot with routine routine healing healing Allergies, Adverse Reactions, Alerts Allergy Allergy Status Severity Reaction(s) Onset Inactive Treating Comm ents Source Name Type Date Date Clinician Fluphena Propensi Active Other (See Severe Me thhector tyler ty to Comments) 02-[address] adverse 00:00: Hospita reaction 00 l s to drug Risperid Propensi Active Other (See Unable to Methodi one ty to Comments) 02-[address] adverse 00:00: Hospita reaction 00 l s to drug Fluphena Propensi Active Unknown - States it Dasia tyler ty to See comments 03-28 makes her i ty of adverse 00:00: world [place] reaction 00 tilt and Medica l s to go funny Branch drug FLUPHENA DRUG Active Low Unknown-Cmnt Un denis TYLER INGREDI 6- ity of 00:00: [place] 00 Medical Branch naloxone DA Active DC JEFF [facility] [place] 00:00: d 00 [facility] Center ondanset DA Active DC HEADACHE [facility] reji 03-20 [place] 00:00: d 00 Medical [place] escitalo DA Active DC JEFF [facility] pram 03-20 [place] 00:00: d 00 Medical [place] haloperi DA Active U SLUGGISHNESS HC A dol 03-20 [place] 00:00: d [address] [facility] buprenor DA Active DC JEFF [facility] phine 03-20 [place] 00:00: d 00 [facility] Azithrom Propensi Active GI Method i ycin ty to Intolerance 11-06 st adverse 00:00: Hospita reaction 00 l s to drug Risperid Drug Active Per OSH [facility] one Allergy 10-15 [facility] 00:[facility] Medical s Center haloperi DA Active U [facility] A dol 12-01 [place] 00:00: d 00 [facility] buprenor DA Active DC JEFF [facility] phine 11-27 [place] 00:00: d [address] [facility] naloxone DA Active DC [facility]FF [facility] 11-27 [place] 00:00: d 00 [facility] ondanset DA Active DC [facility] reji 11-27 [place] 00:00: d [address] [facility] escitalo DA Active DC JEFF [facility] pram 11-27 [place] 00:00: d 00 Medical [place] DULOXETI DRUG Active NE INGREDI 17 Anderso 00:00: n 00 ESCITALO DRUG Active MD CASANOVA INGREDI -17 Anderso 00:00: n 00 MIRTAZAP DRUG Active INE INGREDI -17 Anderso 00:00: n 00 OTHER Allergy Active 2015- 2-17 Anderso 00:00: n 00 PAROXETI DRUG Active 2015- NE INGREDI 2-17 Anderso 00:00: n 00 PREGABAL DRUG Active IN INGREDI -17 Anderso 00:00: n 00 SULFAMET DRUG Active HOXAZOLE 2-17 Anderso -TRIMETH 00:00: n OPRIM 00 TRAZODON DRUG Active MD E INGREDI -17 Anders[facility] 00:00: n 00 VENLAFAX Drug Active MD INE Class 2-17 Anderso ANALOGUE 00:00: n S 00 ADHESIVE Drug Active MD Class 2-17 Anderso 00:00: n 00 AMITRIPT DRUG Active MD YLINE INGREDI 17 Anderso 00:00: n 00 ARIPIPRA DRUG Active MD ZOLE INGREDI 17 Anderso 00:00: n 00 AZITHROM DRUG Active MD YCIN INGREDI 17 [place] 00:00: n 00 BITE-N-I DRUG Active MD TCH 11-25 [place]o 00:00: n 00 BUPRENOR DRUG Active MD PHINE-NA 11-25 Anderso LOXONE 00:00: n 00 CARBAMAZ DRUG Active MD EPINE INGREDI 17 Anderso 00:00: n 00 CITALOPR DRUG Active MD AM INGREDI 17 Anderso 00:00: n 00 Risperda Adverse Active Info Not Commo n l Reaction Available Spiri t - [facility] NO KNOWN Drug Active Univers ALLERGIE Class ity of S [facility] Family History Family Member Diagnosis Comments Start Date Stop Date Source Other Cancer Zoroastrianism Hosp ital Social History Social Habit Start Date Stop Date Quantity Comments Source Gender identity 2021-11-25 Identifies as Method ist 10:05:51 female gender Hospital (finding) Sexual orientation 2021-11-25 Heterosexual Meth odist 10:05:51 (finding) Hospital History of tobacco Smokes tobacco Me thodist use daily Hospital History of Social 2023-02-03 2023-02-[address] function 00:00:00 00:00:00 Hospital Alcohol intake 2023-02-02 2023-02-02 Current drinker of Me thodist 00:00:00 00:00:00 alcohol (finding) Hospita l Exposure to 2022-03-18 2022-03-28 Not sure University of SARS-CoV-2 (event) 00:00:00 08:20:00 [facility] Cigarettes smoked 2021-11-06 2021-11-[address] current (pack per 00:00:00 00:00:00 Hospita l day) - Reported Cigarette 2021-11-06 2021-11-06 Zoroastrianism pack-years 00:00:00 00:00:00 [facility] Alcohol Comment 2021-11-06 2021-11-06 rarely Zoroastrianism 00:00:00 00:00:00 [facility] Tobacco use and 2019-07-17 2019-07-17 Never used Universit y of exposure 00:00:00 00:00:00 [facility] Sex Assigned At [birth year] DIETER [place] 00:00:00 00:00:00 Medical Center Smoking Status Start Date Stop Date Source Current every day smoker 2019-07-17 00:00:00 Uni versity [facility] Medications Ordered Filled Start Stop Current Ordering Indication Dosage Frequency Signature Comments Components Source Medication Medication Date Date Medication? Clinician (SIG) Name Name QUEtiapine Yes 500mg QD Take 2.5 Me thodi (SEROquel) 02-[address] 200 MG 13:38: (500 mg Hospita tablet 00 total) by l mouth nightly. ALPRAZolam Yes 1mg Q.[id number] Take 1 Methodi (XANAX) 1 02-05 [id number] tablet (1 st MG tablet 13:38: 3D mg total) Hos ganesh 00 by mouth 3 l (three) times a day as needed for anxiety. gabapentin 2022- No 800mg Q.[id number] Take 1 Methodi (NEURONTIN) 02-[id number] 800 mg 13:39: 00:00 3D (800 mg Hospita tablet 02 :00 total) by l mouth 3 (three) times a day. cycloSPORIN 2022- No 1[drp] Q.5D Administer Methodi E 02-[address] (RESTASIS) 13:39: 00:00 both eyes H ospita 0.05 % 02 :00 2 (two) l ophthalmic times a emulsion day. NOTE: New prescripti on 11/23/21 fluorometho 2022- No 1[drp] Q.5D Administer Methodi lone 02-[address] (Flarex) 13:39: 00:00 both eyes Hos ganesh 0.1 % 02 :00 2 (two) l ophthalmic times a suspension day. NOTE: Given sample by doctor 11/23/21 and told to use until bottle ran out predniSONE 2022-0 2022- No 60mg QD Take 60 mg Methodi (DELTASONE) 02-[address] 20 mg 13:39: 00:00 daily. Hospita tablet 02 :00 senior care l ibuprofen 2022-2022- No 800mg Q8H Take 4 Meth hector (ADVIL) 200 02-[address] MG tablet 13:39: 00:00 (800 mg Hosp tania 02 :00 total) by l mouth every 8 (eight) hours as needed for mild pain (backpain) . FLUoxetine Yes 80mg QD Take 4 Metho di (PROzac) 20 02-[address] MG capsule 13:39: (80 mg Hospi ta 00 total) by l mouth daily. acetaminoph Yes 1000mg Q6H Take 2 Me thodi en 02-[address] (TYLENOL) 13:39: (1,000 mg Hos ganesh 500 MG 00 total) by l tablet mouth every 6 (six) hours as needed for mild pain, headaches or fever. cholecalcif Yes 2000U QD Take 1 Met hodi antolin, 02-[address] vitamin D3, 13:39: (2,000 Hosp tania 50 mcg 00 Units l (2,000 total) by unit) mouth capsule daily. capsule aspirin 0 Yes 81mg QD Take 1 Methodi (ECOTRIN) 02-04 tablet (81 st 81 MG 13:39: mg total) Hospita enteric 00 by mouth l coated daily. tablet albuterol 2022- No 2{puff} Q6H Inhale 2 Methodi (PROAIR 02-[address] HFA) 90 11:57: 00:00 every 6 Hospit a mcg/actuati 37 :00 (six) l on inhaler hours as needed for wheezing or shortness of breath. budesonide- 2022-0 2022- No Q.5D Inhale 2 M ethodi glycopyr-fo 4-29 04-29 inhalation s t rmoterol 11:57: 00:00 s 2 (two) Hos ganesh (Breztri 37 :00 times a l Aerosphere) day. NOTE: 160-9-4.8 New mcg/actuati prescripti on HFA on aerosol 11/23/21. inhaler MD switched patient from Advair 250/50 to Breztri. predniSONE 2022- Yes [id number] 40mg QD Take 2 Methodi (DELTASONE) 4-[address] 20 mg 00:00: (40 mg Hospita tablet 00 total) by l mouth daily. cefdinir Yes 300mg Q.5D Take 1 Method i (OMNICEF) 4-[address] 300 MG 00:00: (300 mg Hospita capsule 00 total) by l mouth 2 (two) times a day. albuterol 2022- Yes 2{puff} Q6H Inhale 2 Methodi (PROAIR - 05-[address] HFA) 90 00:00: 04:59 every 6 Hospit a mcg/actuati 00 :00 (six) l on inhaler hours as needed for wheezing or shortness of breath for up to 30 days. budesonide- 2022- Yes Q.5D Inhale 2 M ethodi glycopyr-fo 02-04 05-30 inhalation s t rmoterol 00:00: 04:59 s 2 (two) Hos ganesh (Breztri 00 :00 times a l Aerosphere) day for 30 160-9-4.8 days. mcg/actuati NOTE: New on HFA prescripti aerosol on inhaler 11/23/21. switched patient from Advair 250/50 to Breztri. varenicline 2022- Yes .5mg Q.5D Take 1 Met hodi (Chantix) 02-04 05-[address] 0.5 MG 00:00: 04:59 (0.5 mg Hospita tablet 00 :00 total) by l mouth 2 (two) times a day for 30 days. Take with full glass of water. benzonatate 2022- No 100mg Q.[id number] Take 1 Methodi (Tessalon -29 05-[id number] Perles) 100 00:00: 04:59 3D (100 mg Ho spita MG capsule 00 :00 total) by l mouth 3 (three) times a day as needed for cough for up to 14 days. cefdinir No 300mg Q.5D Take 1 Metho di (OMNICEF) 02-04-[address] 300 MG 00:00: 00:00 (300 mg Hospita capsule 00 :00 total) by l mouth 2 (two) times a day. sulfamethox 2021- No 1{tbl} QD Take 1 M ethodi azole-trime 5-14 06-[address] thoprim 00:00: 04:59 mouth Hospita (Bactrim 00 :00 daily for l DS) 800-160 30 days. mg per tablet OLANZapine No [id number] 5mg QD Take 1 Methodi (ZYPREXA) 5 5-13 - tablet (5 st MG tablet 00:00: 04:59 mg total) Ho spita 00 :00 by mouth l nightly for 30 days. cyclobenzap Yes 10mg Q.[id number] Take 1 Methodi rine 4-22 [id number] tablet (10 st (FLEXERIL) 00:00: 3D mg total) Ho spita 10 mg 00 by mouth 3 l tablet (three) times a day as needed for muscle spasms for up to 15 doses. Polyethylen 2015-10 Yes 1{packe Take 1 U nivers e Glycol 2-13 t} Packet by ity of 3350 00:00: mouth 2 [place] (MIRALAX) 00 (two) Medical 17 gram times Branch powder daily. docusate 2015-10 Yes 100mg Take 1 Univer s (COLACE) 2-13 capsule by ity o f 100 mg 00:00: mouth 2 [place] capsule 00 (two) Medical times Branch daily. Polyethylen 2015-10 Yes 1{packe Take 1 U nivers e Glycol 2-13 t} Packet by ity of 3350 00:00: mouth 2 [place] (MIRALAX) 00 (two) Medical 17 gram times Branch powder daily. docusate 2015-10 Yes 100mg Take 1 Univer s (COLACE) 2-13 capsule by ity o f 100 mg 00:00: mouth 2 [place] capsule 00 (two) Medical times Branch daily. MELATONIN Yes Take 1 Univer s ORAL 2-25 oral QHS ity of 11:05: [address] PREMARIN Yes Use PRN Univer s VAGINAL 2-25 ity of 11:05: [address] MELATONIN Yes Take 1 Univer s ORAL 2-25 oral QHS ity of 11:05: [address] PREMARIN Yes Use PRN Univer s VAGINAL 2-25 ity of 11:05: [address] ANGELIQ Yes Take 1 Univers 1-0.5 MG 2-25 oral daily ity o f ORAL TAB 11:05: [address] ACCUTANE 20 Yes 1 capsule U nivers MG ORAL CAP 2-25 po BID ity of 11:05: [address] ANGELIQ Yes Take 1 Univers 1-0.5 MG 2-25 oral daily ity o f ORAL TAB 11:05: [address] ACCUTANE 20 Yes 1 capsule U nivers MG ORAL CAP 2-25 po BID ity of 11:05: [address] CYTOMEL 5 2008-10 Yes [id number] Take 1 Un denis MCG ORAL 2-15 oral BID ity of TAB 00:00: [address] KLONOPIN 2008-10 Yes [id number] Take 1 Uni vers 0.5 MG ORAL 2-15 oral TID ity of TAB 00:00: [address] CYTOMEL 5 2008-10 Yes [id number] Take 1 Un denis MCG ORAL 2-15 oral BID ity of TAB 00:00: [address] KLONOPIN 2008-10 Yes [id number] Take 1 Uni vers 0.5 MG ORAL 2-15 oral TID ity of TAB 00:00: [address] Ibuprofen Ibuprofen Yes Naomi TK 1 T PO Common Fan TID WITH Spirit FOOD OR - CHI MILK [facility] BuPROPion BuPROPion Yes Naomi TAKE ONE Common HCl HCl Fan (1) Spirit TABLET(S) - CHI BY MOUTH St TWICE A Lu DAY. Medical [place] Gabapentin Gabapentin Yes Naomi Garcia ommon Fan defined Spirit - [facility] Wellbutrin Wellbutrin Yes Naomi not C ommon Fan defined Spirit - [facility] amitriptyli amitriptyli Yes Naomi not Common ne ne Meng defined [facility] Tramadol Tramadol Yes Naomi not Commo n HCl HCl Meng defined [facility] Fluoxetine Fluoxetine Yes Naomi not C ommon Meng defined [facility] Levothyroxi Levothyroxi Yes Naomi not Common ne Sodium ne Sodium Meng defined [facility] Immunizations Ordered Immunization Filled Immunization Date Status Commen ts Source Name Name [facility] 2022-01-13 Completed Zoroastrianism 00:00:00 [facility] 2022-01-12 Completed Zoroastrianism 00:00:00 [facility] 2022-01-11 Completed Zoroastrianism 00:00:00 [facility] 2022-01-10 Completed Zoroastrianism 00:00:00 [facility] 2022-01-09 Completed Zoroastrianism 00:00:00 Hospital Vital Signs Vital Name Observation Time Observation Value Comments Source Systolic blood 2022-03-28 13:24:00 170 mm[Hg] Univer sity of [facility] Diastolic blood 2022-03-28 13:24:00 96 mm[Hg] Unive rsity [facility] Heart rate 2022-03-28 13:24:00 94 /min [facility] Body temperature 2022-03-28 13:24:00 36.67 [facility] Respiratory rate 2022-03-28 13:24:00 [facility] height 2022-03-28 13:24:00 162.6 cm [facility] Body weight 2022-03-28 13:24:00 47.628 kg [facility] BMI 2022-03-28 13:24:00 18.02 kg/m2 [facility] Oxygen saturation in 2022-03-28 13:24:00 100 /min [facility] Arterial blood by [facility] Pulse oximetry Branch Oxygen saturation in 2022-03-28 06:59:00 97 /min [facility] Arterial blood by [facility] Pulse oximetry Branch Systolic blood 2022-03-28 06:59:00 149 mm[Hg] Univer sity [facility] Diastolic blood 2022-03-28 06:59:00 98 mm[Hg] Unive rsity of [facility] Heart rate 2022-03-28 06:59:00 91 /min [facility] Body temperature 2022-03-28 06:59:00 37.06 Lily [facility] [place] [facility] 2022-03-28 06:59:00 20 /min [facility] Body height 2022-03-28 06:59:00 162.6 cm [facility] Body weight 2022-03-28 06:59:00 47.628 kg [facility] BMI 2022-03-28 06:59:00 18.02 kg/m2 [facility] Heart rate 2023-02-04 17:59:00 95 /min [facility] Respiratory rate 2023-02-04 17:59:00 13 /min [facility] Systolic blood 2023-02-04 17:21:59 122 mm[Hg] [facility] pressure Diastolic blood 2023-02-04 17:21:59 58 mm[Hg] [facility] pressure Body temperature 2023-02-04 17:21:59 37 Lily [facility] Oxygen saturation in 2023-02-04 17:21:59 93 /min [facility] Arterial blood by Pulse oximetry Body weight 2023-02-04 09:27:00 59.5 kg [facility] BMI 2023-02-04 09:27:00 22.52 kg/m2 [facility] Body height 2023-02-01 21:46:00 162.6 cm [facility] Procedures Procedure Date / Time Performing Clinician Source Performed CBC WITH PLATELET AND 2023-02-04 09:23:00 Manoj Bustamante [facility] DIFFERENTIAL COMPREHENSIVE METABOLIC 2023-02-04 09:23:00 Manoj Bustamante [facility] PANEL VENOUS BLOOD GAS 2023-02-04 09:23:00 Derick Jolley [facility] ESTIMATED GFR 2023-02-04 09:23:00 Aaron Lyn [facility] CT ANGIOGRAM PE CHEST 2023-02-03 16:50:13 [facility] AND 2023-02-03 09:12:00 Bustamante, [facility] DIFFERENTIAL COMPREHENSIVE METABOLIC 2023-02-03 09:12:00 Bustamante, [facility] PANEL VENOUS BLOOD GAS 2023-02-03 09:12:00 JolleyDerick Perez [facility] ESTIMATED GFR 2023-02-03 09:12:00 Rehrer, [facility] SPUTUM CULTURE 2023-02-02 19:30:00 Christiano Antonio Ho spital GRAM STAIN 2023-02-02 19:30:00 Jam Berumen spital LACTIC ACID LEVEL 2023-02-02 14:42:00 Bustamante, [facility] PROCALCITONIN 2023-02-02 14:42:00 Christiano Antonio Ho spital TTE COMPLETE, W CONTRAST, 2023-02-02 13:30:00 Bustamante, [facility] W DOPPLER ([id number]) TROPONIN T 2023-02-02 08:21:00 Rehrer, [facility] LACTIC ACID LEVEL, SEPSIS 2023-02-02 08:21:00 [facility] - NOW AND REPEAT 2X EVERY [place] 3 HOURS CBC WITH PLATELET AND 2023-02-02 08:21:00 Bustamante, [facility] DIFFERENTIAL COMPREHENSIVE METABOLIC 2023-02-02 08:21:00 Bustamante, [facility] PANEL D-DIMER 2023-02-02 08:21:00 Bustamante, Manojwalter Vu Ho spital ESTIMATED GFR 2023-02-02 08:21:00 Rehrer, [facility] VENOUS BLOOD GAS 2023-02-02 04:12:[address]spital [address] CHEST WO CONTRAST 2023-02-02 02:36:06 [facility] [place] TROPONIN T 2023-02-02 02:36:00 Rehrer, [facility] LACTIC ACID LEVEL, SEPSIS 2023-02-02 02:36:00 [facility] - NOW AND REPEAT 2X EVERY [place] 3 HOURS XR CHEST 2 VW 2023-02-02 01:33:00 [facility] spital [place] RESPIRATORY PATHOGEN 2023-02-02 00:39:00 [facility] PANEL WITH COVID-19 [place] RT-PCR BLOOD CULTURE, AEROBIC & 2023-02-02 00:38:00 [facility] ANAEROBIC [place] LACTIC ACID LEVEL, SEPSIS 2023-02-02 00:38:00 [facility] - NOW AND REPEAT 2X EVERY [place] 3 HOURS BLOOD CULTURE, AEROBIC & 2023-02-02 00:37:00 [facility] ANAEROBIC [place] ECG ED PRELIMINARY 2023-02-01 23:51:26 [facility] INTERPRETATION [place] CBC WITH PLATELET AND 2023-02-01 22:21:00 Rehrer, [facility] DIFFERENTIAL COMPREHENSIVE METABOLIC 2023-02-01 22:21:00 Rehrer, [facility] PANEL TROPONIN T 2023-02-01 22:21:00 Rehrer, [facility] NT-PROBNP 2023-02-01 22:21:00 Rehrer, [facility] PARTIAL THROMBOPLASTIN 2023-02-01 22:21:00 [facility] TIME (PTT) PROTHROMBIN TIME WITH INR 2023-02-01 22:21:00 Rehrer, [facility] ESTIMATED GFR 2023-02-01 22:21:00 Rehrer, [facility] ECG 12-LEAD 2023-02-01 21:32:28 Rehrer, [facility] CBC WITH PLATELET AND 2022-07-08 20:01:00 Srini Nobles [facility] DIFFERENTIAL PLATELET FUNCTION 2022-07-08 20:01:00 Srini Nobles [facility] ANALYSIS ELECTROLYTE (CHEM4) 2022-07-08 20:01:00 Srini Nobles [facility] PROTHROMBIN TIME WITH INR 2022-07-08 20:01:00 [facility] CONSENT/REFUSAL FOR 2022-03-28 13:08:[address] [facility] DIAGNOSIS AND TREATMENT [facility] NOTICE OF PRIVACY 2022-03-28 06:49:29 Doctor Dasia Mccabe [facility] PRACTICES [facility] CONSENT/REFUSAL FOR 2022-03-28 06:49:[address] [facility] DIAGNOSIS AND TREATMENT [facility] Plan of Care Planned Activity Planned Date Details Comments Source Future Scheduled 2023-02-15 Pneumococcal Vaccine: [facility] Test 09:05:17 Pediatrics (0 to 5 Years) and At-Risk Patients (6 to 64 Years) (1 - PCV) [code = Pneumococcal Vaccine: Pediatrics (0 to 5 Years) and At-Risk Patients (6 to 64 Years) (1 - PCV)] Future Scheduled 2023-02-15 Screening for [facility] Test 09:05:17 malignant neoplasm of cervix (procedure) [code = [id number]] Future Scheduled 2023-02-15 COLONOSCOPY SCREENING [facility] Test 09:05:17 [code = COLONOSCOPY SCREENING] Future Scheduled 2023-02-15 Screening for [facility] Test 09:05:17 malignant neoplasm of lung (procedure) [code = [id number]] Future Scheduled 2023-02-15 SHINGLES VACCINES ([address] [facility] Test 09:05:17 of 2) [code = SHINGLES VACCINES (1 of 2)] Future Scheduled 2023-02-15 BREAST CANCER [facility] Test 09:05:17 SCREENING [code = BREAST CANCER SCREENING] Future Scheduled 2023-02-15 COVID-19 VACCINE (2 - [facility] Test 09:05:17 Booster for Trent series) [code = COVID-19 VACCINE (2 - Booster for Trent series)] Future Scheduled 2023-02-15 INFLUENZA VACCINE [facility] Test 09:05:17 [code = INFLUENZA VACCINE] Encounters Start End Encounter Admission Attending Care Care Encounter Source Date/Time Date/Time Type Type Clinicians Facility Department ID 2022-01-07 Outpatient [facility] [id number] [place] 15:56:03 [id number] [facility] 2022-01-05 Outpatient [facility] [id number] [place] 14:13:45 [id number] [facility] 2023-02-01 2023-02-04 Emergency RehrerAaron 1.2.840.1 [id number] Methodi 16:52:00 13:38:00 [address] Berumenaz 74671.1.[address] Sita Macedo 3.430.2.7 H ospita .3.409357 l .8 2023-02-01 2023-02-04 Outpatient [facility] [id number] [place] 00:00:00 00:00:[address] SITA [address] 2023-02-01 2023-02-01 Travel 1.2.840.1 1.2.855.816 [id number] Methodi 00:00:00 00:00:[address] 3.430.2.7 0.2.7.3.698 Ho spita .3.495127 084.8 l .8 2023-01-24 2023-01-24 Outpatient FOG_A_Provi AOSM AOSM 652 [id number] Liza 00:00:00 00:00:00 arnold [id number] [facility] 2022-11-17 2022-11-17 Telephone Kerns, 1.2.840.1 [id number] Methodi 00:00:00 00:00:[address] 3.430.2.7 Hospit a .3.366237 l .8 2022-10-25 2022-10-25 Outpatient Deshazo_T DMG [facility] [id number] Devoted 00:00:00 00:00:00 0506 Medica l Group 2022-10-25 2022-10-25 Outpatient Deshazo_T DMG [facility] [id number] Devoted 00:00:00 00:00:00 0117 Medica l Group 2022-10-05 2022-10-05 Telephone Kerns, 1.2.840.1 [id number] [id number] Methodi 00:00:00 00:00:[address] 3.430.2.7 Hospit a .3.396729 l .8 2022-10-04 2022-10-04 [facility] [id number] -2021 Dev[facility] 00:00:00 00:00:00 1227 Medica l Group 2022-07-08 2022-07-08 Lab Christopher, 1.2.840.1 [id number] [id number] Methodi 14:30:00 14:35:00 Srini Steiner 86925.1.1 673 s t 3.430.2.7 Hospit a .3.578289 l .8 2022-07-08 2022-07-08 [facility] [id number] [place] 00:00:00 00:00:[address] [facility] [address] 2022-07-08 2022-07-08 Travel 1.2.840.1 1.2.857.448 5608 [id number] Methodi 00:00:00 00:00:[address] 3.430.2.7 0.2.7.3.698 Ho spita .3.662691 084.8 l .8 2022-05-27 2022-05-27 Outpatient [facility] [id number] 022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
[2023-02-28 13:13] LABS: Absolute Lymphocytes (CBC) 4.3 K/uL (0.7-4.9); Hematocrit 35.1 % (36.0-45.0); MCV 93.3 fL (80-100); MPV 8.2 fL (7.6-11.3); RBC Red Blood Cell Count 3.76 M/uL (3.86-4.86)
[2023-02-28 13:19] LABS: Protime INR 0.95
[2023-02-28 13:32] LABS: ALT/SGPT 13 U/L (13-56); AST/SGOT 26 U/L (15-37); Albumin 3.5 g/dL (3.4-5.0); Alkaline Phosphatase 118 U/L (45-117); BUN Blood Urea Nitrogen 30 mg/dL (7-18); Bicarbonate 24 mEq/L (21-32); Bilirubin Direct 0.1 mg/dL (0-0.2); Bilirubin Indirect, Calculated 0.3 mg/dL (0.2-0.8); Bilirubin Total 0.4 mg/dL (0.2-1.0); Glomerular Filtration Rate 50 ml/min (=/>90); Glucose Level 91 mg/dL (74-106); Potassium 3.1 mEq/L (3.5-5.1); Protein, Total 7.4 g/dL (6.4-8.2); Sodium Level 139 mEq/L (136-145)
[2023-02-28] MEDS ORDERED: ZIPRASIDONE MESYLA 20 MG/VIAL IM ONE ×2 (13:52→20:51)
[2023-02-28 16:17] LABS: Specific Gravity 1.013 (1.005-1.030)
[2023-02-28 16:25] LABS: Specific Gravity 1.013 (1.005-1.030); Urine Bacteria <20 /HPF (<20); Urine Bilirubin NEGATIVE (Negative); Urine Blood Negative (Negative); Urine Clarity Clear (Clear); Urine Color Light-Yellow (Yellow); Urine Glucose NEGATIVE (Negative); Urine Protein NEGATIVE (Negative); Urine RBC <5 /HPF (None Seen); Urine Urobilinogen Normal (Normal); Urine pH 5.5 (5.0-7.0)
[2023-02-28 16:27] LABS: Barbiturates NEGATIVE (NEGATIVE); Benzodiazepines POSITIVE (NEGATIVE); Cocaine NEGATIVE (NEGATIVE); METHAMPHETAM NEGATIVE (NEGATIVE); Methadone NEGATIVE (NEGATIVE); Opiates NEGATIVE (NEGATIVE); Phencyclidine NEGATIVE (NEGATIVE); THC Cannibis NEGATIVE (NEGATIVE)
[2023-02-28] MEDS ORDERED: POTASSIUM CL SA 10 MEQ TAB PO ONE (17:19)
[2023-02-28] MEDS ORDERED: WATER FOR INJ,STERILE 10 ML ONE (20:52)
[2023-02-28] MEDS ORDERED: NICOTINE 21 MG/PAT TD ONE (20:58)
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
--- NOTE | 2023-03-01 04:56 | EKG ---
Test Date: 2023-02-28 Test Time: 12:52:45 Yam Curer: Allie ANGEL MEASUREMENT RESULTS: Intervals: Rate: 106 MO: 158 QRSD: 78 QT: 348 QTc: 462 [place]: P: 43 MO: 158 QRS: -13 T: 37 INTERPRETIVE STATEMENTS: Sinus tachycardia Biatrial enlargement Left ventricular hypertrophy Cannot rule out Septal infarct, age undetermined Abnormal ECG Compared to ECG 10/23/2016 05:36:16 Atrial abnormality now present Left ventricular hypertrophy now present Myocardial infarct finding now present Sinus rhythm no longer present Electronically Signed On 03-01-23 04:53:48 CDT by Murali Burton
[2023-03-01 05:17] LABS: SARS-CoV-2 Antigen Rapid Res Negative (Negative)
[2023-03-01] MEDS ORDERED: LORAZEPAM 1 MG TABLET ONE (06:15)
[2023-03-01 07:04] VITALS: BP 125/67; O2SAT 98
== END 2023-03-01 06:42 ==
LOC: ER 12:25
DX: R45.4 Irritability and anger (principal); F23 Brief psychotic disorder; F22 Delusional disorders; F32.A Depression, unspecified; Z72.0 Tobacco use; Z88.3 Allergy status to other anti-infective agents; Z88.8 Allergy status to other drugs, medicaments and biological substances; Z85.3 Personal history of malignant neoplasm of breast; Z20.822 Contact with and (suspected) exposure to COVID-19
CPT/HCPCS: 93005; 87088; 85025; 81001; 87086; 80048; 36415; 81025; 85610; 80076; 85730; 80307; 87811; J3486 ×2; G0480 ×3

== ENCOUNTER 2023-03-11 14:03 | Emergency (ER) | payer MEDICARE ==
--- OUTSIDE RECORDS SUMMARY | 2023-03-11 14:08 | XMS REPORT | Continuity of Care Document ---
:1960 Author Organization [facility] t Address [address] [place] [address] Care Team Providers Name Role Phone Sharpless Primary Care Physician Aaron yLn DO Attending Clinician Jam Berumen DO Attending Clinician Sita Macedo MD Attending Clinician FOG_A_Provider Attending Clinician Unavailable Miguelina Kerns MA Attending Clinician Unavailable Desdileepzo_T Attending Clinician Unavailable Karlo Nobles MD Attending Clinician IRENE CRUZ Attending Clinician Unavailable Irene Cruz DO Attending Clinician EDER ALVARADO Attending Clinician Unavailable Eder Alvarado MD Attending Clinician Jacbo Sullivan MD Attending Clinician Tejas Allen Attending [...] Expiration Date Nicholas garza MEDICARE PART B [id number] [facility] [id number] 2020 (MEDICARE 00:00:00 REPLACEMENT HMO) [...] 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 02-13 st ocyte ocyte 00:00: Hospita glycoprote glycoprote 00 l in in antibody antibody disorder disorder (MOGAD) (MOGAD) Hypoxemia Hypoxemia Disease Active Met hodi 01-13 st 00:00: Hospita 00 l Hypoxia Hypoxia Disease Active Methodi 01-08 st 00:00: Hospita 00 l COVID-19 COVID-19 Disease Active Metho di virus virus 01-08 st detected detected 00:00: Hospit a 00 l Vision 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 00:00: Hosp tania 00 l Vision Vision Disease Active Methodi changes changes 2-18 st 00:00: Hospita 00 l Respirator Respirator Disease Recurre [facility] failure y failure nce 1-07 [facility] s requiring requiring 00:00: Medi mae intubation intubation 00 Ce nter Benzodiaze Benzodiaze Disease Active C [facility]07 [facility] overdose overdose 00:[facility]: Medica l 00 Center Shock Shock Disease Recurre 2016-[address] [facility]ce 1[facility]06 [facility] 00:00: Medical 00 [place] Anxiety Anxiety Disease Active 2008- Univers disorder disorder 2-18 ity of 00:00: [place] 00 Medical Branch Strain of Strain of Problem Active 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 - [facility]I longus longus St tendon tendon [facility] Closed Closed Problem Active Common torus torus Spirit fracture fracture - [facility] of distal of distal St end of end of [facility] left left Medical radius, radius, Center initial initial encounter encounter Closed Closed Problem Active Common torus torus Spirit fracture fracture - CHI of distal of distal St end of end of [facility] left left [facility] radius radius Center with with routine routine healing healing Pain in Pain in Problem Active Common joint of joint of Spirit left foot left foot - CH I [facility] Closed Closed Problem Active Common nondisplac nondisplac Sp celsa ed ed - CHI fracture fracture [facility] of of [facility] proximal proximal Medica l phalanx of phalanx of Ce nter lesser toe lesser toe of left of left foot, foot, initial initial encounter encounter Pain in Pain in Problem Active Common joint of joint of Spirit left wrist left wrist - [facility] Closed Closed Problem Active Common [...] Fluphena Propensi Active Other (See Severe Me thodi billy ty to Comments) [address] adverse 00:00: Hospita reaction 00 l s to drug Risperid Propensi Active Other (See Unable to Methodi one ty to Comments) [address] adverse 00:00: Hospita reaction 00 l s to drug Fluphena Propensi Active Unknown - States it Univers billy ty to See comments 6-20 makes her i ty of adverse 00:00: world [place] reaction 00 tilt and Medica l s to go funny Branch drug FLUPHENA DRUG Active Low Unknown-Cmnt Un denis TYLER INGREDI 6-20 ity of 00:00: [place] 00 [facility] Branch naloxone DA Active [place] [facility] 6-12 [place] 00:00: d 00 [facility] ondanset DA Active [place] [facility] reji 6-12 [place] 00:00: d 00 Medical [place] escitalo DA Active [place] [facility] pram 612 [place] 00:00: d 00 [facility] haloperi DA Active U SLUGGISHNESS HC A dol 6 [place] 00:00: d 00 [facility] buprenor DA Active [place] [facility] phine 03-20 [place] 00:00: d 00 [facility] Azithrom Propensi Active GI Method i ycin ty to Intolerance 11-06 st adverse 00:00: Hospita reaction 00 l s to drug Risperid Drug Active Per OSH [facility] one Allergy 10-15 record [facility] 00:00: Medical s 00 [place] haloperi DA Active U SLUGGISHNESS HC A dol 2 [place] 00:00: d 00 [facility] buprenor DA Active [place] [facility] phine 2-19 [place] 00:00: d 00 [facility] naloxone DA Active [place] [facility] 2-19 [place] 00:00: d 00 [facility] ondanset DA Active [place] [facility] reji 219 [place] 00:00: d 00 [facility] escitalo DA Active [place] [facility] pram 219 [place] 00:00: d 00 Medical Center OTHER Allergy Active 2-17 [place]o 00:00: n 00 PAROXETI DRUG Active 2015- NE INGREDI 2-17 [place]o 00:00: n 00 PREGABAL DRUG Active 2015- IN INGREDI 2-17 Anderso 00:00: n 00 SULFAMET DRUG Active 2015-0 HOXAZOLE -17 Anderso -TRIMETH 00:00: n OPRIM 00 TRAZODON DRUG Active 2015- E INGREDI 2-17 [place]o 00:00: n 00 VENLAFAX Drug Active 2015- INE Class 2-17 Anderso ANALOGUE 00:00: n S 00 ADHESIVE Drug Active MD Class 2-17 Anderso 00:00: n 00 AMITRIPT DRUG Active MD YLINE INGREDI 17 [place]o 00:00: n 00 ARIPIPRA DRUG Active MD ZOLE INGREDI 17 [place] 00:00: n 00 AZITHROM DRUG Active MD YCIN INGREDI 17 [place] 00:00: n 00 BITE-N-I DRUG Active MD TCH 17 [place] 00:00: n 00 BUPRENOR DRUG Active MD PHINE-NA 11-25 Anderso LOXONE 00:00: n 00 CARBAMAZ DRUG Active MD EPINE INGREDI 17 [place] 00:00: n 00 CITALOPR DRUG Active MD AM INGREDI 17 [place] 00:00: n 00 DULOXETI DRUG Active MD NE INGREDI 17 [place]o 00:00: n 00 ESCITALO DRUG Active MD PRAM INGREDI 11-25 [place] 00:00: n 00 MIRTAZAP DRUG Active MD INE INGREDI 17 [place]o 00:00: n 00 Risperda Adverse Active Info Not Commo n l Reaction Available [facility] NO KNOWN Drug Active Univers ALLERGIE Class ity of S [facility] Family History Family Member Diagnosis Comments Start Date Stop Date Source Other Cancer [facility] Social History Social Habit Start Date Stop Date Quantity Comments Source Gender identity 2021-11-25 Identifies as Method ist 10:05:51 female gender Hospital (finding) Sexual orientation 2021-11-25 Heterosexual Meth odist 10:05:51 (finding) Hospital History of tobacco Cigarette Smoker [facility] use [facility] History of Social 2023-02-03 2023-02-[address] function 00:00:00 00:00:00 Hospital Alcohol intake 2023-02-02 2023-02-02 Current drinker of Me thodist 00:00:00 00:00:00 alcohol (finding) Hospita l Exposure to 2022-03-18 2022-03-28 Not sure University of SARS-CoV-2 (event) 00:00:00 08:20:00 [facility] Cigarettes smoked 2021-11-06 2021-11-[address] current (pack per 00:00:00 00:00:00 Hospita l day) - Reported Cigarette 2021-11-06 2021-11-06 [facility] pack-years 00:00:00 00:00:00 Hospital Alcohol Comment 2021-11-06 2021-11-06 rarely [facility] 00:00:00 00:00:00 Hospital Tobacco use and 2019-07-17 2019-07-17 Never used Universit y of exposure 00:00:00 00:00:00 [facility] Sex Assigned At [birth year] DIETER [place] 00:00:00 00:00:00 Medical Center Smoking Status Start Date Stop Date Source Current every day smoker 2019-07-17 00:00:00 Uni versity [facility] Medications Ordered Filled Start Stop Current Ordering Indication Dosage Frequency Signature Comments Components Source Medication Medication Date Date Medication? Clinician (SIG) Name Name QUEtiapine Yes 500mg QD Take 2.5 Me thodi (SEROquel) 4-[address] 200 MG 13:38: (500 mg Hospita tablet 00 total) by l mouth nightly. ALPRAZolam Yes 1mg Q.[id number] Take 1 Methodi (XANAX) 1 4-30 [id number] tablet (1 st MG tablet 13:38: 3D mg total) Hos ganesh 00 by mouth 3 l (three) times a day as needed for anxiety. QUEtiapine Yes 500mg QD Take 2.5 Me thodi (SEROquel) 4-[address] 200 MG 13:38: (500 mg Hospita tablet 00 total) by l mouth nightly. ALPRAZolam Yes 1mg Q.[id number] Take 1 Methodi (XANAX) 1 4-30 [id number] tablet (1 st MG tablet 13:38: 3D mg total) Hos ganesh 00 by mouth 3 l (three) times a day as needed for anxiety. gabapentin No 800mg Q.[id number] Take 1 Methodi (NEURONTIN) -04 02- [id number] tablet st 800 mg 13:39: 00:00 3D [...] to use until bottle ran out predniSONE 2022- No 60mg QD Take 60 mg Methodi (DELTASONE) 02-[address] 20 mg 13:39: 00:00 daily. Hospita tablet 02 :00 prison l ibuprofen 2022- No 800mg Q8H Take 4 Meth hector (ADVIL) 200 02-[address] MG tablet 13:39: 00:00 (800 mg Hosp tania 02 :00 total) by l mouth every 8 (eight) hours as needed for mild pain (backpain) . gabapentin 2022- No 800mg Q.[id number] Take 1 Methodi (NEURONTIN) 02-[id number] 800 mg 13:39: 00:00 3D (800 mg Hospita tablet 02 :00 total) by l mouth 3 (three) times a day. cycloSPORIN 2022- No 1[drp] Q.5D Administer Methodi E 02-[address] (RESTASIS) 13:39: 00:00 both eyes H ospita 0.05 % 02 :00 2 (two) l ophthalmic times a emulsion day. NOTE: New prescripti on 11/23/21 fluorometho 0 2022- No 1[drp] Q.5D Administer Methodi lone 02-04- [address] (Flarex) 13:39: 00:00 both eyes Hos ganesh 0.1 % 02 :00 2 (two) l ophthalmic times a suspension day. NOTE: Given sample by doctor 11/23/21 and told to use until bottle ran out predniSONE 2022-0 2022- No 60mg QD Take 60 mg Methodi (DELTASONE) -04 02-[address] 20 mg 13:39: 00:00 daily. Hospita tablet 02 :00 prison l ibuprofen 2022-0 2022- No 800mg Q8H Take 4 Meth hector (ADVIL) 200 -04 02-[address] MG tablet 13:39: 00:00 (800 mg Hosp tania 02 :00 total) by l mouth every 8 (eight) hours as needed for mild pain (backpain) . FLUoxetine 2022-0 Yes 80mg QD Take 4 Metho di (PROzac) 20 -[address] MG capsule 13:39: (80 mg Hospi ta 00 total) by l mouth daily. acetaminoph 202-0 Yes 1000mg Q6H Take 2 Me thodi en 4-[address] (TYLENOL) 13:39: (1,000 mg Hos ganesh 500 MG 00 total) by l tablet mouth every 6 (six) hours as needed for mild pain, headaches or fever. cholecalcif 202-0 Yes 2000U QD Take 1 Met hodi antolin, -[address] vitamin D3, 13:39: (2,000 Hosp tania 50 mcg 00 Units l (2,000 total) by unit) mouth capsule daily. capsule aspirin 2022-0 Yes 81mg QD Take 1 Methodi (ECOTRIN) 02-04 tablet (81 st 81 MG 13:39: mg total) Hospita enteric 00 by mouth l coated daily. tablet FLUoxetine 2022-0 Yes 80mg QD Take 4 Metho di (PROzac) 20 4-[address] MG capsule 13:39: (80 mg Hospi ta 00 total) by l mouth daily. acetaminoph 2023-0 Yes 1000mg Q6H Take 2 Me thodi en 4-[address] (TYLENOL) 13:39: (1,000 mg Hos ganesh 500 MG 00 total) by l tablet mouth every 6 (six) hours as needed for mild pain, headaches or fever. cholecalcif 2023-0 Yes 2000U QD Take 1 Met hodi antolin, 4-[address] vitamin D3, 13:39: (2,000 Hosp tania 50 mcg 00 Units l (2,000 total) by unit) mouth capsule daily. capsule aspirin Yes 81mg QD Take 1 Methodi (ECOTRIN) 02-04 tablet (81 st 81 MG 13:39: mg total) Hospita enteric 00 by mouth l coated daily. tablet albuterol 2022- No 2{puff} Q6H Inhale 2 Methodi (PROAIR - 04-[address] HFA) 90 11:57: 00:00 every 6 Hospit a mcg/actuati 37 :00 (six) l on inhaler hours as needed for wheezing or shortness of breath. budesonide- 2022- No Q.5D Inhale 2 M ethodi glycopyr-fo 02-04 inhalation s t rmoterol 11:57: 00:00 s 2 (two) Hos ganesh (Breztri 37 :00 times a l Aerosphere) day. NOTE: 160-9-4.8 New mcg/actuati prescripti on HFA on aerosol 11/23/21. inhaler MD switched patient from Advair 250/50 to Breztri. albuterol 2022- No 2{puff} Q6H Inhale 2 Methodi (PROAIR 02-04 04-[address] HFA) 90 11:57: 00:00 every 6 Hospit a mcg/actuati 37 :00 (six) l on inhaler hours as needed for wheezing or shortness of breath. budesonide- 2022- No Q.5D Inhale 2 M ethodi glycopyr-fo 02-04 inhalation s t rmoterol 11:57: 00:00 s 2 (two) Hos ganesh (Breztri 37 :00 times a l Aerosphere) day. NOTE: 160-9-4.8 New mcg/actuati prescripti on HFA on aerosol 11/23/21. inhaler MD switched patient from Advair 250/50 to Breztri. predniSONE Yes [id number] 40mg QD Take 2 Methodi (DELTASONE) -[address] 20 mg 00:00: (40 mg Hospita tablet 00 total) by l mouth daily. cefdinir 2022-0 Yes 300mg Q.5D Take 1 Method i (OMNICEF) 4-[address] 300 MG 00:00: (300 mg Hospita capsule 00 total) by l mouth 2 (two) times a day. predniSONE 2022-0 Yes [id number] 40mg QD Take 2 Methodi (DELTASONE) 4-[address] 20 mg 00:00: (40 mg Hospita tablet 00 total) by l mouth daily. cefdinir 2022-0 Yes 300mg Q.5D Take 1 Method i (OMNICEF) 4-[address] 300 MG 00:00: (300 mg Hospita capsule 00 total) by l mouth 2 (two) times a day. albuterol 2022- Yes 2{puff} Q6H Inhale 2 Methodi (PROAIR 4-29 05-[address] HFA) 90 00:00: 04:59 every 6 Hospit a mcg/actuati 00 :00 (six) l on inhaler hours as needed for wheezing or shortness of breath for up to 30 days. budesonide- 2022- Yes Q.5D Inhale 2 M ethodi glycopyr-fo - 05-30 inhalation s t rmoterol 00:00: 04:59 s 2 (two) Hos ganesh (Breztri 00 :00 times a l Aerosphere) day for 30 160-9-4.8 days. mcg/actuati NOTE: New on HFA prescripti aerosol on inhaler 11/23/21. switched patient from Advair 250/50 to Breztri. varenicline 2022- Yes .5mg Q.5D Take 1 Met hodi (Chantix) -29 05-[address] 0.5 MG 00:00: 04:59 (0.5 mg Hospita tablet 00 :00 total) by l mouth 2 (two) times a day for 30 days. Take with full glass of water. albuterol 2022- No 2{puff} Q6H Inhale 2 Methodi (PROAIR 4-29 05-[address] HFA) 90 00:00: 04:59 every 6 Hospit a mcg/actuati 00 :00 (six) l on inhaler hours as needed for wheezing or shortness of breath for up to 30 days. budesonide- 2022-0 2023- No Q.5D Inhale 2 M ethodi glycopyr-fo 02-0430 inhalation s t rmoterol 00:00: 04:59 s 2 (two) Hos ganesh (Breztri 00 :00 times a l Aerosphere) day for 30 160-9-4.8 days. mcg/actuati NOTE: New on HFA prescripti aerosol on inhaler 11/23/21. switched patient from Advair 250/50 to Breztri. varenicline 2022-0 2022- No .5mg Q.5D Take 1 Met hodi (Chantix) 02-04-[address] 0.5 MG 00:00: 04:59 (0.5 mg Hospita tablet 00 :00 total) by l mouth 2 (two) times a day for 30 days. Take with full glass of water. benzonatate 2022-0 2022- No 100mg Q.[id number] Take 1 Methodi (Tessalon -29 05-[id number] Perles) 100 00:00: 04:59 3D (100 mg Ho spita MG capsule 00 :00 total) by l mouth 3 (three) times a day as needed for cough for up to 14 days. benzonatate 2022-0 2022- No 100mg Q.[id number] Take 1 Methodi (Tessalon 4-29 05-[id number] [place]les) 100 00:00: 04:59 3D (100 mg Ho spita MG capsule 00 :00 total) by l mouth 3 (three) times a day as needed for cough for up to 14 days. cefdinir 3-0 2023- No 300mg Q.5D Take 1 Metho di (OMNICEF) 02-04-[address] 300 MG 00:00: 00:00 (300 mg Hospita capsule 00 :00 total) by l mouth 2 (two) times a day. cefdinir 2023-0 2023- No 300mg Q.5D Take 1 Metho di (OMNICEF) -04 02-[address] 300 MG 00:00: 00:00 (300 mg Hospita capsule 00 :00 total) by l mouth 2 (two) times a day. sulfamethox 2021- No 1{tbl} QD Take 1 M ethodi azole-trime 02-[address] thoprim 00:00: 04:59 mouth Hospita (Bactrim 00 :00 daily for l DS) 800-160 30 days. mg per tablet sulfamethox 2021- No 1{tbl} QD Take 1 M ethodi azole-trime 02-[address] thoprim 00:00: 04:59 mouth Hospita (Bactrim 00 :00 daily for l DS) 800-160 30 days. mg per tablet OLANZapine 2021- No [id number] 5mg QD Take 1 Methodi (ZYPREXA) 5 02-18 tablet (5 st MG tablet 00:00: 04:59 mg total) Ho spita 00 :00 by mouth l nightly for 30 days. OLANZapine 2021- No [id number] 5mg QD Take 1 Methodi (ZYPREXA) 5 02-18 tablet (5 st MG tablet 00:00: 04:59 mg total) Ho spita 00 :00 by mouth l nightly for 30 days. cyclobenzap Yes 10mg Q.[id number] Take 1 Methodi rine 4-22 [id number] tablet (10 st (FLEXERIL) 00:00: 3D mg total) Ho spita 10 mg 00 by mouth 3 l tablet (three) times a day as needed for muscle spasms for up to 15 doses. cyclobenzap Yes 10mg Q.[id number] Take 1 Methodi rine 4-22 [id number] tablet (10 st (FLEXERIL) 00:00: 3D mg [...] ORAL 2-25 oral QHS ity of 11:05: [address] PREMARIN Yes Use PRN Univer s VAGINAL 2-25 ity of 11:05: [address] MELATONIN Yes Take 1 Univer s ORAL 2-25 oral QHS ity of 11:05: [address] PREMARIN Yes Use PRN Univer s VAGINAL 2-25 ity of 11:05: [address] ANGELIQ Yes Take 1 Univers 1-0.5 MG 2-25 oral daily ity o f ORAL TAB 11:05: [address] ACCUTANE 20 Yes 1 capsule U nivers MG ORAL CAP 2-25 po BID ity of 11:05: [address] ANGELIQ Yes Take 1 Univers 1-0.5 MG 2-25 oral daily ity o f ORAL TAB 11:05: [address] ACCUTANE 20 Yes 1 capsule U nivers MG ORAL CAP 2-25 po BID ity of 11:05: [address] CYTOMEL 5 2008-10 Yes [id number] Take 1 Un denis MCG ORAL 2-15 oral BID ity of TAB 00:00: [address] KLONOPIN 2008-10 Yes [id number] Take 1 Uni vers 0.5 MG ORAL 2-15 oral TID ity of TAB 00:00: [address] CYTOMEL 5 2008-10 Yes [id number] Take 1 Un denis MCG ORAL 2-15 oral BID ity of TAB 00:00: [address] KLONOPIN 2008-10 Yes [id number] Take 1 Uni vers 0.5 MG ORAL 2-15 oral TID ity of TAB 00:00: [address] Branch Ibuprofen Ibuprofen Yes Naomi TK 1 T PO Common Fan TID WITH Spirit FOOD OR - CHI MILK [facility] BuPROPion BuPROPion Yes Naomi TAKE ONE Common HCl HCl Fan (1) Spirit TABLET(S) - [facility] BY MOUTH St TWICE A DAY. Medical Center Gabapentin Gabapentin Yes Naomi not C ommon Meng defined [facility] Wellbutrin Wellbutrin Yes Naomi not C ommon Fan defined [facility] amitriptyli amitriptyli Yes Naomi not Common ne ne Fan defined [facility] Tramadol Tramadol Yes Naomi not Commo n HCl HCl Fan defined [facility] Fluoxetine Fluoxetine Yes Naomi not C ommon Fan defined [facility] Levothyroxi Levothyroxi Yes Naomi not Common ne Sodium ne Sodium Fan defined [facility] Immunizations Ordered Immunization Filled Immunization Date Status Commen ts Source Name Name [facility] 2022-01-13 Completed [facility] 00:00:00 [facility] 2022-01-13 Completed [facility] 00:00:00 [facility] 2022-01-12 Completed [facility] 00:00:00 [facility] 2022-01-12 Completed [facility] 00:00:00 [facility] 2022-01-11 Completed [facility] 00:00:00 [facility] 2022-01-11 Completed [facility] 00:00:00 [facility] 2022-01-10 Completed [facility] 00:00:00 [facility] 2022-01-10 Completed [facility] 00:00:00 [facility] 2022-01-09 Completed [facility] 00:00:00 [facility] 2022-01-09 Completed [facility] 00:00:00 Hospital Vital Signs Vital Name Observation Time Observation Value Comments Source Systolic blood 2022-03-28 13:24:00 170 mm[Hg] Univer sity of pressure [facility] Diastolic blood 2022-03-28 13:24:00 96 mm[Hg] Unive rsity of pressure [facility] Heart rate 2022-03-28 13:24:00 94 /min [facility] [place] [facility] Body temperature 2022-03-28 13:24:00 36.67 Lily [facility] ersity [facility] [place] [facility] Respiratory rate 2022-03-28 13:24:00 18 /min Univ [facility] [place] [facility] Body height 2022-03-28 13:24:00 162.6 cm [facility] [place] [facility] Body weight 2022-03-28 13:24:00 47.628 kg [facility] [place] [facility] BMI 2022-03-28 13:24:00 18.02 kg/m2 [facility] [place] [facility] Oxygen saturation in 2022-03-28 13:24:00 100 /min University of Arterial blood by [place] QuadROI mae Pulse oximetry Branch Systolic blood 2022-03-28 06:59:00 149 mm[Hg] Univer sity of pressure [place] [facility] Diastolic blood 2022-03-28 06:59:00 98 mm[Hg] [facility] Heart rate 2022-03-28 06:59:00 91 /min [facility] [place] [facility] Body temperature 2022-03-28 06:59:00 37.06 Lily [facility] ersity [facility] [place] Respiratory rate 2022-03-28 06:59:00 20 /min [facility] [place] [facility] [place] Body height 2022-03-28 06:59:00 162.6 cm [facility] [place] [facility] [place] Body weight 2022-03-28 06:59:00 47.628 kg [facility] [place] [facility] BMI 2022-03-28 06:59:00 18.02 kg/m2 [facility] [place] [facility] [place] Oxygen saturation in 2022-03-28 06:59:00 97 /min University of Arterial blood by [place] QuadROI mae Pulse oximetry Branch Heart rate 2023-02-04 17:59:00 95 /min [facility] Res[facility] rate 2023-02-04 17:59:00 13 /min [facility] Systolic blood 2023-02-04 17:21:59 122 mm[Hg] Method ist Hospital pressure Diastolic blood 2023-02-04 17:21:59 58 mm[Hg] [facility] pressure Body temperature 2023-02-04 17:21:59 37 Lily [facility] Oxygen saturation in 2023-02-04 17:21:59 93 /min [facility] Arterial blood by Pulse oximetry Body weight 2023-02-04 09:27:00 59.5 kg [facility] BMI 2023-02-04 09:27:00 22.52 kg/m2 [facility] Body height 2023-02-01 21:46:00 162.6 cm [facility] Procedures Procedure Date / Time Performing Clinician Source Performed CBC WITH PLATELET AND 2023-02-04 09:23:00 [facility] DIFFERENTIAL COMPREHENSIVE METABOLIC 2023-02-04 09:23:00 [facility] PANEL VENOUS BLOOD GAS 2023-02-04 09:23:00 [facility] ESTIM[facility] GFR 2023-02-04 09:23:00 Rehrer, [facility] CT ANGIOGRAM PE CHEST 2023-02-03 16:50:13 [facility] CBC WITH PLATELET AND 2023-02-03 09:12:00 [facility] DIFFERENTIAL COMPREHENSIVE METABOLIC 2023-02-03 09:12:00 [facility] PANEL VENOUS BLOOD GAS 2023-02-03 09:12:00 Derick Jolley [facility] ESTIMATED GFR 2023-02-03 09:12:00 Rehrer, [facility] SPUTUM CULTURE 2023-02-02 19:30:00 Christiano Antonio spital GRAM STAIN 2023-02-02 19:30:00 Jam Berumen Ho spital LACTIC ACID LEVEL 2023-02-02 14:42:00 [facility], [facility] PROCALCITONIN 2023-02-02 14:42:00 Christiano Antonio Ho spital TTE COMPLETE, W CONTRAST, 2023-02-02 13:30:00 [facility], [facility] W DOPPLER ([id number]) TROPONIN T 2023-02-02 08:21:00 Rehrer, [facility] LACTIC ACID LEVEL, SEPSIS 2023-02-02 08:21:[address] [facility] - NOW AND REPEAT 2X EVERY [place] 3 HOURS CBC WITH PLATELET AND 2023-02-02 08:21:00 Robby [facility] DIFFERENTIAL COMPREHENSIVE METABOLIC 2023-02-02 08:21:00 Bustamante [facility] PANEL D-DIMER 2023-02-02 08:21:00 Robby [facility] spital ESTIMATED GFR 2023-02-02 08:21:00 Rehrer, [facility] VENOUS BLOOD GAS 2023-02-02 04:12:00 Robby [facility] ospital CT CHEST WO CONTRAST 2023-02-02 02:36:06 [facility] [place] TROPONIN T 2023-02-02 02:36:00 [facility] LACT[facility] AC[facility]EV[facility], SEPSIS 2023-02-02 02:36:00 [facility] - NOW AND REPEAT 2X EVERY [place] 3 HOURS XR CHEST 2 VW 2023-02-02 01:33:00 [facility] spital [place] RESPIRATORY PATHOGEN 2023-02-02 00:39:00 [facility] PANEL WITH COVID-19 [place] RT-PCR BLOOD CULTURE, AEROBIC & 2023-02-02 00:38:00 [facility] ANAEROBIC [place] LACTIC ACID LEVEL, SEPSIS 2023-02-02 00:38:00 [facility] - NOW AND REPEAT 2X EVERY [place] 3 HOURS BLOOD CULTURE, AEROBIC & 2023-02-02 00:37:00 [facility] ANAEROBIC [place] ECG ED PRELIMINARY 2023-02-01 23:51:26 [facility] INTERPRETATION [place] CBC WITH PLATELET AND 2023-02-01 22:21:00 Rehrer, [facility] DIFFERENTIAL COMPREHENSIVE METABOLIC 2023-02-01 22:21:00 Rehrer, [facility] PANEL TROPONIN T 2023-02-01 22:21:00 [facility] 2023-02-01 22:21:00 Rehrer, [facility] PARTIAL THROMBOPLASTIN 2023-02-01 22:21:00 Rehrer, [facility] TIME (PTT) PROTHROMBIN TIME WITH INR 2023-02-01 22:21:00 Rehrer, [facility] ESTIMATED GFR 2023-02-01 22:21:00 Rehrer, [facility] ECG 12-LEAD 2023-02-01 21:32:28 Rehrer, [facility] CBC WITH PLATELET AND 2022-07-08 20:01:[facility] DIFFERENTIAL PLATELET FUNCTION 2022-07-08 20:01:[address] [facility] ANALYSIS ELECTROLYTE (CHEM4) 2022-07-08 20:01:00 Karlo Nobles [facility] PROTHROMBIN TIME WITH INR 2022-07-08 20:01:00 [facility] CONSENT/REFUSAL FOR 2022-03-28 13:08:29 Doctor Estelle [facility] DIAGNOSIS AND TREATMENT [facility] NOTICE OF PRIVACY 2022-03-28 06:49:29 Doctor Estelle, [facility] PRACTICES [facility] CONSENT/REFUSAL FOR 2022-03-28 06:49:06 Doctor Estelle [facility] DIAGNOSIS AND TREATMENT [facility] Plan of Care Planned Activity Planned Date Details Comments Source Future Scheduled 2023-02-15 Pneumococcal Vaccine: [facility] Test 09:05:17 Pediatrics (0 to 5 Years) and At-Risk Patients (6 to 64 Years) (1 - PCV) [code = Pneumococcal Vaccine: Pediatrics (0 to 5 Years) and At-Risk Patients (6 to 64 Years) (1 - PCV)] Future Scheduled 2023-02-15 Screening for [facility] Test 09:05:17 malignant neoplasm of cervix (procedure) [code = 763145274] Future Scheduled 2023-02-[address] [facility] Test 09:05:17 [code = COLONOSCOPY SCREENING] Future Scheduled 2023-02-15 Screening for [facility] Test 09:05:17 malignant neoplasm of lung (procedure) [code = 199776255] Future Scheduled 2023-02-15 SHINGLES VACCINES (1 Met [facility] Test 09:05:17 of 2) [code = SHINGLES VACCINES (1 of 2)] Future Scheduled 2023-02-15 BREAST CANCER [facility] Test 09:05:17 SCREENING [code = BREAST CANCER SCREENING] Future Scheduled 2023-02-15 COVID-19 VACCINE (2 - [facility] Test 09:05:17 Booster for Trent series) [code = COVID-19 VACCINE (2 - Booster for Trent series)] Future Scheduled 2023-02-15 INFLUENZA VACCINE [facility] Test 09:05:17 [code = INFLUENZA VACCINE] Future Scheduled 2023-02-15 Pneumococcal Vaccine: [facility] Test 09:05:17 Pediatrics (0 to 5 Years) and At-Risk Patients (6 to 64 Years) (1 - PCV) [code = Pneumococcal Vaccine: Pediatrics (0 to 5 Years) and At-Risk Patients (6 to 64 Years) (1 - PCV)] Future Scheduled 2023-02-15 Screening for [facility] Test 09:05:17 malignant neoplasm of cervix (procedure) [code = 101300018] Future Scheduled 2023-02-[address] [facility] Test 09:05:17 [code = COLONOSCOPY SCREENING] Future Scheduled 2023-02-15 Screening for [facility] Test 09:05:17 malignant neoplasm of lung (procedure) [code = 151167162] Future Scheduled 2023-02-15 SHINGLES VACCINES (1 Met [facility] Test 09:05:17 of 2) [code = SHINGLES VACCINES (1 of 2)] Future Scheduled 2023-02-15 BREAST CANCER [facility] Test 09:05:17 SCREENING [code = BREAST CANCER SCREENING] Future Scheduled 2023-02-15 COVID-19 VACCINE (2 - [facility] Test 09:05:17 Booster for Trent series) [code = COVID-19 VACCINE (2 - Booster for Trent series)] Future Scheduled 2023-02-15 INFLUENZA VACCINE [facility] Test 09:05:17 [code = INFLUENZA VACCINE] Encounters Start End Encounter Admission Attending Care Care Encounter Source Date/Time Date/Time Type Type Clinicians Facility Department ID 2022-01-07 Outpatient NEWFIELDANNITA JACKSON [id number] [place] 15:56:03 [id number] [facility] 2022-01-05 Outpatient [facility] [id number] [place] 14:13:45 [id number] [facility] 2023-02-01 2023-02-04 Emergency Rehrer, Aaron Rolle 1.2.840.1 [id number] [facility] 16:52:00 13:38:[address] Jam Berumen [address]1.[address] Fredy, Sita 3.430.2.7 H ospita .3.225240 l .8 2023-02-01 2023-02-04 Emergency Rehrer, Aaron Rolle 1.2.840.1 10 [id number] [facility] 16:52:00 13:38:[address] Jam Berumen [address] Fredy, Sita 3.430.2.7 H ospita .3.292402 l .8 2023-02-01 2023-02-01 Travel 1.2.840.1 1.2.356.290 9501 [id number] [facility] 00:00:00 00:00:[address] 3.430.2.7 0.2.7.3.698 Ho spita .3.235428 084.8 l .8 2023-02-01 2023-02-01 Travel 1.2.840.1 1.2.456.676 4340 106039 [facility] 00:00:00 00:00:[address] 3.430.2.7 0.2.7.3.698 Ho spita .3.482826 084.8 l .8 2023-01-24 2023-01-24 Outpatient FOG_A_Provi AOSM AOSM 652 [id number] Liza 00:00:00 00:00:00 arnold [id number] Orthop e [facility] 2022-11-17 2022-11-17 Negrita Kerns 1.2.840.1 [id number] 2100 [id number] [facility] 00:00:00 00:00:00 Miguelina R [address].1.[address] 3.430.2.7 Hospit a .3.196807 l .8 2022-11-17 2022-11-17 Telephone Saumya, 1.2.840.1 [id number] 2099 [id number] [facility] 00:00:00 00:00:00 Miguelina R [address].1.[address] 3.430.2.7 Hospit a .3.479852 l .8 2022-10-25 2022-10-25 Outpatient Deshazo_T [facility] 95164 -2022 [facility] 00:00:00 00:00:00 0506 Medica l Group 2022-10-25 2022-10-25 Outpatient Deshazo_T [facility] [address]3871 -2022 [facility] 00:00:00 00:00:00 0117 Medica l Group 2022-10-05 2022-10-05 Telephone Saumya, 1.2.840.1 [id number] 2099 [id number] [facility] 00:00:00 00:00:00 [address] Cordova [address]18[address]1.[address] 3.430.2.7 Hospit a .3.180728 l .8 2022-10-05 2022-10-05 [place] Saumya, 1.2.840.1 [id number] 2099 [id number] Methodi 00:00:00 00:00:00 Miguelina R [address].1.[address] 3.430.2.7 Hospit a .3.368410 l .8 2022-10-04 2022-10-04 Outpatient Deshazo_T [facility] 68160 -2021 [facility] 00:00:00 00:00:00 1227 Medica l Group 2022-07-08 2022-07-08 Lab Mallorie, 1.2.840.1 [id number] 2099 [id number] Methodi 14:30:00 14:35:00 Karlo Steiner 37889.1.1 673 s t 3.430.2.7 Hospit a .3.314303 l .8 2022-07-08 2022-07-08 Lab Mallorie, 1.2.840.1 [id number] 2099 734225 Methodi 14:30:00 14:35:00 Karlo Steiner 50986.1.1 673 s t 3.430.2.7 Hospit a .3.762649 l .8 2022-07-08 2022-07-08 Travel 1.2.840.1 1.2.853.237 8174 578227 Methodi 00:00:00 00:00:[address] 3.430.2.7 0.2.7.3.698 Ho spita .3.884769 084.8 l .8 2022-07-08 2022-07-08 Travel 1.2.840.1 1.2.060.330 5001 917487 Methodi 00:00:00 00:00:[address] 3.430.2.7 0.2.7.3.698 Ho spita .3.608096 084.8 l .8 2022-05-27 2022-05-27 [facility] [id number] 022 [facility] 00:00:00 00:00:00 0819 Medica l Group 2022-04-22 2022-04-22 [facility] [id number] 022 [facility] 03:41:00 03:41:00 0715 Medica l Group 2022-03-30 2022-03-30 [facility]patient [facility] 73757-6 022 [facility] 07:01:00 07:01:00 0622 Medica l Group 2022-03-28 2022-03-28 [facility] [id number] Univers 08:27:00 10:00:00 IRENE ragsdale [facility] 2022-03-28 2022-03-28 [facility] 1.2.840.114 [id number] Univers 08:27:00 10:00:00 Irene CARSON 350.1.13.10 melyssa [facility] 4.2.7.2.686 [id number] [address] 2022-03-28 2022-03-28 Emergency X CHRISTIANO [facility] ERT [id number] Univers 02:06:00 04:26:00 EDER ity [facility] 2022-03-28 2022-03-28 Emergency Christiano, [facility] 1.2.083.168 5026 [id number] Univers 02:06:00 04:26:00 Eder CARSON 350.1.13.10 ity [facility] 4.2.7.2.686 [facility] [id number] [place] [id number] [place] 2022-03-27 2022-03-27 Refill Nate, 1.2.840.1 [id number] 2079 Methodi 00:00:00 00:00:[address] 3.430.2.7 Hospit a .3.571712 l .8 2022-03-27 2022-03-27 Refill Nate, 1.2.840.1 [id number] 4650 Methodi 00:00:00 00:00:[address] 3.430.2.7 Hospit a .3.870467 l .8 2022-03-20 2022-03-20 Emergency EM Tejas Allen HCAPM LOLY LA00 [id number] [facility] 12:33:00 13:50:00 56 [facility] 2022-03-20 2022-03-20 Emergency EM Tejas Allen HCAPM HCAPM E244 221-20 [facility] 12:33:00 12:33:00 622259 [facility] 2022-02-13 2022-02-18 Inpatient MAAME, [place] [address] [id number] 701 [place] 00:00:00 00:00:00 PRECIOUS [address] 2022-01-31 2022-01-31 Outpatient COH COH PENFIXY GUC COH 00:00:00 00:00:00 ESTHELAD-60146 [facility] 2022-01-28 2022-01-28 Emergency NANCY, [facility] 064 [id number] [place] 00:00:00 00:00:[address] 2022-01-22 2022-01-22 Emergency RUBY, [facility] 025 [id number] 235 [place] 00:00:00 00:00:[address] 2022-01-08 2022-01-13 Inpatient SALMA DUPONT [facility] 064 [id number] [place] 00:00:00 00:00:[address] 2021-11-26 2021-12-14 Inpatient NAOMI, [facility] 064 [id number] 40 [place] 00:00:00 00:00:00 NORMAN 971 Method i 2021-11-25 2021-11-25 Outpatient ELIZABETH, [facility] [id number] [place] 00:00:00 00:00:00 BYRON 700 Method i 2021-11-06 2021-11-06 Emergency RUBY, [facility] 524 [id number] 037 [place] 00:00:00 00:00:00 NYASIA 899 Method i 2019-04-22 2019-04-22 Outpatient [facility] 26 [id number] Common 14:30:00 14:30:00 [facility] 2019-03-26 2019-03-26 Outpatient [facility] 26 [id number] Common 13:30:00 13:30:00 t [facility] Results Test Description Test Time Test Comments Results Result Comments Source ECG 12 lead 2023-02-03 01:41:59 Test Item Value Reference Range Interpretation Comme nts Ventricular rate (test code = 253) 109 Atrial rate (test code = 255) 109 CA interval (test code = 266) 142 QRSD [...] of 14-FEB-2022 00:26,-No significant change was found- [facility] [id number] 01:41:59 Test Item Value Reference Range Interpretation Comments Ventricular rate (test 109 code = 253) Atrial rate (test code 109 = 255) CA interval (test code 142 = 266) QRSD interval (test 76 code = 260) QT interval (test code 338 = 264) QTC interval (test code 455 = 265) P axis 1 (test code = 60 267) QRS axis 1 (test code = -4 268) T wave axis (test code 66 = 270) EKG impression (test Sinus code = 273) tachycardia-Biatrial enlargement-Septal infarct (cited on or before 26-NOV-2021)-Abnormal ECG-In automated comparison with ECG of 14-FEB-2022 00:26,-No significant change was found- [facility]- XR KNEE 3 V [id number] 13:22:00 [facility]WL[facility] Kelley : 1960 Sex: F Name: JILLIAN LAWLERKARLI Kelley [facility] : 1960 Age/S: 61 / F [address] [place] Unit #: [id number] Loc: [place] [address] Phys: Tejas Allen DO Acct: [id number] Dis Date: Status: REG ER PHONE #:[phone] Exam Date: 03/20/2022 1305 FAX #: Reason: pain EXAMS: CPT: [id number] XR KNEE 3 V RT 46822 Fluoro Time: DAP (Gy m2): Air Kerma [...] DO PAGE 1 Signed Report Name: ROSIBEL LAWLERY Allie [facility] : 1960 Age/S: 61 / F [address] [place] Unit #: [id number] Loc: [place] [address] Phys: Tejas Allen DO Acct: [id number] Dis Date: Status: REG ER PHONE #: [phone] Exam Date: 03/20/2022 1305 FAX #: Reason: pain EXAMS: CPT: [id number] XR KNEE 3 V RT [address]1511 Fluoro Time: DAP (Gy m2): Air Kerma (mGy): (Continued) Technologist: Marzena Lawler RT(R) Trnscb Date/Time: 03/20/2022 (1322) tETTAPE1 Orig Print D/T: S: 03/20/2022 (1325) PAGE 2 Signed Report SARS-CoV-2 (COVID-19) RNA [Presence] in Respiratory specimen by JOHAN with probe [id number] 13:37:38 Test Item Value Reference Range Interpretation Comments SARS-CoV-2 (COVID-19) RNA Not detected [Presence] in Respiratory specimen by JOHAN with probe detection (test code = 46629-9) Whether patient is employed in a Unknown healthcare setting (test code = 63029-1) Whether the patient has symptoms Unknown related to condition of interest (test code = 30691-1) Whether the patient was Unknown hospitalized for condition of interest (test code = 38559-1) Whether the patient was admitted Unknown to intensive care unit (ICU) for condition of interest (test code = 72428-3) Whether patient resides in a Unknown congregate care setting (test code = 30176-9) status (test code = Unknown 98686-7) Date and time of symptom onset Unknown (test code = 96619-1) RUBALCAVA SIKHISM DJTBZWUV-EdO-1 (COVID-19) RNA [Presence] in Respiratory specimen by JOHAN with probe [id number] 23:19:45 Test Item Value Reference Range Interpretation Comments SARS-CoV-2 (COVID-19) RNA [Presence] Detected in Respiratory specimen by JOHAN with probe detection (test code = 14267-8) Whether patient is employed in a No healthcare setting (test code = 92569-5) Whether the patient has symptoms Yes related to condition of interest (test code = 93749-3) Whether the patient was hospitalized No for condition of interest (test code = 81759-1) Whether the patient was admitted to No intensive care unit (ICU) for condition of interest (test code = 83967-6) Whether patient resides in a No congregate care setting (test code = 66164-8) status (test code = Unknown 14954-8) Date and time of symptom onset (test Unknown code = 46960-6) [facility]-CoV-2 (COVID-19) RNA [Presence] in Respiratory specimen by JOHAN with probe [id number] 01:20:45 Test Item Value Reference Range Interpretation Comments SARS-CoV-2 (COVID-19) RNA Not detected Not-Detected [Presence] in Respiratory specimen by JOHAN with probe detection (test code = 15662-1) Whether patient is employed in a healthcare setting (test code = 77205-6) Whether the patient has symptoms related to condition of interest (test code = 82092-0) Patient was hospitalized because of this condition (test code = 76659-4) Whether the patient was admitted to intensive care unit (ICU) for condition of interest (test code = 55513-7) Whether patient resides in a congregate care setting (test code = 23823-8) [facility] Notes Date/Time Note Provider Source 2022-03-20 12:59:00-00:00 [facility] ([facility]) EMERGENCY PROVIDER REPORT REPORT#:[id number] REPORT STATUS: Signed DATE:03/20/22 TIME:1259 PATIENT: LLUVIA LAWLER UNIT #: [id number] ROOM/BED: : 64 AGE: 61 SEX: F PCP PHYS: Hebert Monae MD SERVICE AUTHOR: Tejas Allen DO * ALL edits or amendments must be made on the [employer]/computer document * HPI-Extremity Prob Lower General Confirmed [...] were called and she was brought to [facility] ER. She told them that she had [...] Documented: Result Date Time Pulse Ox 98 06/ 1235 B/P 156/73 06/12 1235 B/P Mean 100 06/12 1235 O2 Delivery Room air 06/ 1235 Temp 97.9 06/12 1235 Pulse 89 06/12 1235 Resp 18 06/ 1235 Last Documented: Result Date Time Pulse Ox 98 06/12 1235 B/P 156/73 06/12 1235 B/P Mean 100 06/12 1235 O2 Delivery Room air 06/ 1235 Temp 97.9 06/12 1235 Pulse 89 06/12 1235 Resp 18 / 1235 All vital signs available at the [...] your primary care physcian in 1 w knik. Electronically Signed by Tejas Allen DO on at 1332 RPT #: [id number] END OF REPORT
[2023-03-11] MEDS ORDERED: WATER FOR INJ,STERILE 10 ML ONE (15:35)
[2023-03-11] MEDS ORDERED: ZIPRASIDONE MESYLA 20 MG/VIAL IM ONE (15:35)
[2023-03-11 16:22] LABS: Absolute Lymphocytes (CBC) 2.2 K/uL (0.7-4.9); Hematocrit 39.1 % (36.0-45.0); Lymphocytes % 17.8 % (15.3-44.8); MCV 93.2 fL (80-100); MPV 8.7 fL (7.6-11.3)
[2023-03-11 16:28] LABS: Protime INR 0.97
[2023-03-11 16:31] LABS: SARS-CoV-2 Antigen Rapid Res Negative (Negative)
[2023-03-11 16:32] LABS: Barbiturates NEGATIVE (NEGATIVE); Benzodiazepines POSITIVE (NEGATIVE); Cocaine NEGATIVE (NEGATIVE); METHAMPHETAM NEGATIVE (NEGATIVE); Methadone NEGATIVE (NEGATIVE); Opiates NEGATIVE (NEGATIVE); Phencyclidine NEGATIVE (NEGATIVE); THC Cannibis NEGATIVE (NEGATIVE)
[2023-03-11 16:50] LABS: ALT/SGPT 15 U/L (13-56); AST/SGOT 28 U/L (15-37); Alkaline Phosphatase 126 U/L (45-117); BUN Blood Urea Nitrogen 12 mg/dL (7-18); Bicarbonate 28 mEq/L (21-32); Bilirubin Direct 0.2 mg/dL (0-0.2); Bilirubin Indirect, Calculated 0.3 mg/dL (0.2-0.8); Bilirubin Total 0.5 mg/dL (0.2-1.0); Glomerular Filtration Rate 80 ml/min (=/>90); Glucose Level 94 mg/dL (74-106); Potassium 2.9 mEq/L (3.5-5.1); Protein, Total 8.7 g/dL (6.4-8.2); Sodium Level 139 mEq/L (136-145)
[2023-03-11] MEDS ORDERED: POTASSIUM CL SA 10 MEQ TAB PO ONE (18:45)
[2023-03-11] MEDS ORDERED: NA CHLORIDE 0.9% 500 ML ONE ×2 (18:46→20:01)
[2023-03-11] MEDS ORDERED: KCL 20 MEQ/100 mL IVPB 100 ML IV ONE (18:46)
[2023-03-11 19:47] LABS: Urine Bilirubin NEGATIVE (Negative); Urine Blood Negative (Negative); Urine Clarity Clear (Clear); Urine Color Light-Yellow (Yellow); Urine Glucose NEGATIVE (Negative); Urine Protein NEGATIVE (Negative); Urine Urobilinogen Normal (Normal)
[2023-03-11] MEDS ORDERED: MAGNESIUM SULFATE 1 gm IVPB 1 GM/100 ML BAG IV ONE (19:50)
--- NOTE | 2023-03-11 22:10 | EDPHYS ---
Physician Documentation [facility] Name: Clementina Lawler Age: 62 yrs Sex: Female : 1960 Arrival Date: 03/11/2023 Time: 14:03 Bed 19 Private MD: ED Physician Noe Lake HPI: 03/11 14:36 This 62 yrs old Female presents to ER via Wheelchair with complaints of Hasnt bs3 Slept In 3 days, Palpitations. 14:36 62-year-old female, history of possible bipolar disorder, psychosis unspecified, bs3 possible schizophrenia presents with her heart feeling like it is going fast she notes she has not been sleeping for the past 3 days per family at bedside she has been getting things in and out of her car for the last 3 days after being discharged from [place] history is limited as patient is disorganized in her thoughts and occasionally has posterior speech but she request to feel better. Historical: - Allergies: 14:20 Amitriptyline; ll1 14:20 aripiprazole; ll1 14:20 Azithromycin; ll1 14:20 Carbamazepine; ll1 14:20 citalopram hydrobromide; ll1 14:20 paroxetine HCl; ll1 14:20 RISPERIDONE; ll1 - Home Meds: 21:05 pantoprazole oral [Active]; sertraline oral [Active]; Seroquel Oral [Active]; Depakote eh3 Oral [Active]; Hydroxyzine Oral [Active]; Apresoline Oral [Active]; - PMHx: 14:20 *no blood pressure on right*; Anxiety; BREAST CA; Chronic pain; Depression; ll1 Hypothyroidism; - PSHx: 14:22 None; ll1 - Immunization history:: Adult Immunizations up to date. - Social history:: Smoking status: Patient reports the use of cigarette tobacco products, smokes one pack cigarettes per day. ROS: 14:36 Constitutional: Negative for fever, chills bs3 14:36 Unable to obtain ROS due to patient being uncooperative. Exam: 14:36 Constitutional: Patient appears anxious Head/Face: Normocephalic, atraumatic. Eyes: bs3 Pupils equal round and reactive to light, extra-ocular motions intact. Lids and lashes normal. ENT: mmm, no posterior phyarngeal erythema Neck: Trachea midline, no thyromegaly, no neck stiffness Chest/axilla: Normal chest wall appearance and motion. Nontender with no deformity. No lesions are appreciated. Cardiovascular: Regular rate and rhythm with a normal S1 and S2. symmetric pulses in upper extremities Respiratory: Lungs have equal breath sounds bilaterally, clear to auscultation, no respiratory distress Abdomen/GI: Soft, non-tender, no rebound or guarding Skin: Warm, dry with normal turgor. Normal color with no rashes, no lesions, and no evidence of cellulitis. MS/ Extremity: Pulses equal, no cyanosis. Neurovascular intact. Full, normal range of motion. Neuro: Awake and alert, GCS 15, oriented to person, place, time, and situation. Cranial nerves II-XII grossly intact. Motor strength 5/5 in all extremities. Sensory grossly intact. Psych: Tangential thought process, paranoid thoughts, delusions Vital Signs: 14:20 BP 166 / 96; Pulse 98; Resp 18; Temp 98.8; Pulse Ox 96% ; Pain 0/10; ll1 15:00 BP 179 / 98; Pulse 86; Resp 18; Pulse Ox 98% on R/A; eh3 16:00 BP 154 / 88; Pulse 83; Resp 18; Pulse Ox 98% on R/A; eh3 17:00 BP 134 / 64; Pulse 85; Resp 19; Pulse Ox 95% on R/A; eh3 18:00 BP 127 / 65; Pulse 82; Resp 19; Pulse Ox 95% on R/A; eh3 19:00 BP 154 / 76; Pulse 80; Resp 16; Pulse Ox 98% on R/A; eh3 20:00 BP 155 / 79; Pulse 82; Resp 16; Pulse Ox 98% on R/A; eh3 21:00 BP 159 / 93; Pulse 88; Resp 20; Pulse Ox 100% on R/A; eh3 23:25 BP 148 / 87; Pulse 82; Resp 19; Pulse Ox 98% on R/A; ll3 14:20 Pain Scale: Adult ll1 MDM: 14:06 Patient medically screened. bs3 14:36 Data reviewed: vital signs, nurses notes. ED course: Patient with inability to sleep bs3 for the past 3 days associated with psychotic features I suspect she has some type of psychosis possible manic episode will give Geodon for anxiolysis we will do serial exams will screen for medical etiology although I suspect given her long history and recent discharge that this is related to her underlying psychiatric disorder. She is currently not an active threat to herself and not threatening others but her does feel for his safety I advised him to call the police if she were to leave or if he feels like she is a threat to anyone. 18:56 ED course: pt signed out pending reassessment. . bs3 19:03 ED course: signed out pending reassessment, repeat potassium. . bs3 22:09 ED course: Patient was discharged to the psychiatric facility designated in stable kdr condition without further complication or issue. Patient appeared to be happy with the care provided the plan for transfer and further evaluation and treatment. 03/11 14:32 Order name: CBC with Diff; Complete Time: 18:07 [facility] 03/11 14:32 Order name: Comprehensive Metabolic Panel; Complete Time: 18:07 [facility] 03/11 14:32 Order name: TSH; Complete Time: 18:07 [facility] 03/11 14:32 Order name: Acetaminophen; Complete Time: 18:07 [facility] 03/11 14:32 Order name: Basic Metabolic Panel [facility] 03/11 14:32 Order name: ETOH Level; Complete Time: 18:07 [facility] 03/11 14:32 Order name: Hepatic Function; Complete Time: 18:07 [facility] 03/11 14:32 Order name: PT-INR; Complete Time: 18:07 [facility] 03/11 14:32 Order name: Ptt, Activated; Complete Time: 18:07 [facility] 03/11 14:32 Order name: Salicylate; Complete Time: 18:07 [facility] 03/11 14:32 Order name: Urine Drug Screen; Complete Time: 18:07 [facility] 03/11 14:32 Order name: SARS-COV-2 Antigen Rapid; Complete Time: 18:07 [facility] 03/11 18:07 Order name: Urinalysis w/ reflexes; Complete Time: 20:25 03/11 18:56 Order name: Potassium [facility] 03/11 14:32 Order name: EKG; Complete Time: 14:33 3 03/11 14:32 Order name: EKG - Nurse/Tech; Complete Time: 16:29 [facility] 03/11 14:32 Order name: IV Saline Lock; Complete Time: 16:18 3 03/11 14:32 Order name: Labs collected and sent; Complete Time: 16:18 bs3 06/03 14:32 Order name: Suicide Screening ([place]); Complete Time: 16:29 bs3 Administered Medications: 16:00 Drug: Geodon 10 mg Route: IM; Site: left deltoid; 3 17:00 Follow up: Response: Anxiety decreased eh3 19:05 Drug: Potassium Chloride PO Liquid 40 mEq Route: PO; eh3 20:00 Follow up: Response: No adverse reaction eh3 19:05 Drug: Potassium Chloride IV 10 mEq Route: IV; Rate: bolus; Site: right antecubital; eh3 20:05 Follow up: Response: No adverse reaction; IV Status: Completed infusion; IV Intake: [id number] 19:45 Drug: Magnesium Sulfate IVPB 1 grams Route: IVPB; Infused Over: 1 hrs; Site: right 3 antecubital; 21:15 Follow up: Response: No adverse reaction; IV Status: Completed infusion; IV Intake: eh3 100ml 19:55 Drug: NS 0.9% IV 1000 ml Route: IV; Rate: 100 ml/hr; Site: right antecubital; 3 21:15 Follow up: IV Status: IV converted to saline lock; IV Intake: 600ml 3 20:45 Drug: Nicoderm CQ Transdermal Patch 21 mg/24 hr 1 patches {Note: right scapular area.} eh3 Route: Transdermal; Site: affected area; 21:30 Follow up: Response: No adverse reaction 3 Disposition Summary: 03/11/23 22:09 Transfer Ordered Transfer Location: Psych Facility kdr Reason: Higher level of care kdr Condition: Fair kdr Problem: an acute exacerbation kdr Symptoms: have improved kdr Accepting Physician: Dr. Keenan(03/11/23 23:25) ll3 Diagnosis - Bipolar disorder, current episode manic without psychotic features, moderate kdr - Bipolar disorder, current episode mixed, severe, with psychotic features kdr Forms: - Medication Reconciliation Form kdr - SBAR form kdr Signatures: Dispatcher [employer] Noe Guillory MD MD kdr Suraj Mosquera RN RN ll1 Eric Flaherty RN RN 3 Haylee Rinaldi RN RN 3 Christiano Calles MD MD bs3 Corrections: (The following items were deleted from the chart) 23:25 22:09 Dr. Keenan kdr ll3
--- NOTE | 2023-03-11 22:10 | ER ---
Nurse's Notes [facility] Name: Clementina Lawler Age: 62 yrs Sex: Female : 1960 Arrival Date: 03/11/2023 Time: 14:03 Bed 19 Private MD: Diagnosis: Bipolar disorder, current episode manic without psychotic features, moderate;Bipolar disorder, current episode mixed, severe, with psychotic features Presentation: 03/11 14:20 Chief complaint: Patient states: Can't sleep for 4 days, scattered thoughts, ll1 palpitations, scared of her surroundings. Daughter wanted her to get checked out. Denies SI/HI at this time. Just left [facility] in [address] earlier this week. Coronavirus screen: Client denies travel out of the [place] in the last 14 days. At this time, the client does not indicate any symptoms associated with coronavirus-19. Ebola Screen: Patient denies travel to an Ebola-affected area in the 21 days before illness onset. Initial Sepsis Screen: Does the patient meet any 2 criteria? No. Patient's initial sepsis screen is negative. Does the patient have a suspected source of infection? No. Patient's initial sepsis screen is negative. Risk Assessment: Do you want to hurt yourself or someone else? Patient reports no desire to harm self or others. Onset of symptoms was March 08, 2023. 14:20 Method Of Arrival: Wheelchair ll1 14:20 Acuity: AWA 2 ll1 Historical: - Allergies: 14:20 Amitriptyline; ll1 14:20 aripiprazole; ll1 14:20 Azithromycin; ll1 14:20 Carbamazepine; ll1 14:20 citalopram hydrobromide; ll1 14:20 paroxetine HCl; ll1 14:20 RISPERIDONE; ll1 - Home Meds: 21:05 pantoprazole oral [Active]; sertraline oral [Active]; Seroquel Oral [Active]; Depakote eh3 Oral [Active]; Hydroxyzine Oral [Active]; Apresoline Oral [Active]; - PMHx: 14:20 *no blood pressure on right*; Anxiety; BREAST CA; Chronic pain; Depression; ll1 Hypothyroidism; - PSHx: 14:22 None; ll1 - Immunization history:: Adult Immunizations up to date. - Social history:: Smoking status: Patient reports the use of cigarette tobacco products, smokes one pack cigarettes per day. Screenin:00 [facility] ED Fall Risk Assessment (Adult) Score/Fall Risk Level 0 - 2 = Low Risk. Abuse eh3 screen: Denies threats or abuse. Denies injuries from another. Nutritional screening: No deficits noted. Tuberculosis screening: No symptoms or risk factors identified. Assessment: 14:52 Reassessment: Pt transported to ER Room 19 via wheelchair from miguel, at 7 bedside. 15:00 General: Appears in no apparent distress. uncomfortable, unkempt, Behavior is eh3 cooperative, anxious, restless. Pain: Denies pain. Neuro: Level of Consciousness is awake, alert, obeys commands, Oriented to person, place, time, situation, Pupils are PERRLA. Cardiovascular: Capillary refill < 3 seconds Patient's skin is warm and dry. Cardiovascular: Reports palpitations. Respiratory: Airway is patent Respiratory effort is even, unlabored, Respiratory pattern is regular, symmetrical. GI: Abdomen is round non-distended. : No signs and/or symptoms were reported regarding the genitourinary system. EENT: No signs and/or symptoms were reported regarding the EENT system. Derm: Skin is pink, warm \T\ dry. Musculoskeletal: Circulation, motion, and sensation intact. 15:08 Reassessment: Suicide Screening completed, patient denies SI at this time. See paper eh3 screening document for more information. 16:00 Reassessment: Patient appears in no apparent distress at this time. Patient and/or 3 family updated on plan of care and expected duration. Pain level reassessed. Patient is alert, oriented x 3, equal unlabored respirations, skin warm/dry/pink. 17:00 Reassessment: Pt sleeping, equal unlabored respirations, skin warm/dry/pink. eh3 17:46 Reassessment: Nurse to nurse report received by Kymberly at [facility]. eh3 18:00 Reassessment: Pt sleeping, equal unlabored respirations, skin warm/dry/pink. eh3 18:31 Reassessment: Nurse to nurse report received by Giovanny at [facility]. eh3 18:49 Reassessment: Nurse to nurse report received by Jyoti at [facility]. eh3 19:00 Reassessment: Patient appears in no apparent distress at this time. Patient and/or eh3 family updated on plan of care and expected duration. Pain level reassessed. Patient is alert, oriented x 3, equal unlabored respirations, skin warm/dry/pink. 20:00 Reassessment: Patient appears in no apparent distress at this time. Patient and/or eh3 family updated on plan of care and expected duration. Pain level reassessed. Patient is alert, oriented x 3, equal unlabored respirations, skin warm/dry/pink. 21:00 Reassessment: Patient appears in no apparent distress at this time. Patient and/or eh3 family updated on plan of care and expected duration. Pain level reassessed. Patient is alert, oriented x 3, equal unlabored respirations, skin warm/dry/pink. Spoke with EZEKIEL Mims at [facility], updated on pt status; K+ level 4.3 and normal UA results. Vital Signs: 14:20 BP 166 / 96; Pulse 98; Resp 18; Temp 98.8; Pulse Ox 96% ; Pain 0/10; ll1 15:00 BP 179 / 98; Pulse 86; Resp 18; Pulse Ox 98% on R/A; eh3 16:00 BP 154 / 88; Pulse 83; Resp 18; Pulse Ox 98% on R/A; 3 17:00 BP 134 / 64; Pulse 85; Resp 19; Pulse Ox 95% on R/A; 3 18:00 BP 127 / 65; Pulse 82; Resp 19; Pulse Ox 95% on R/A; 3 19:00 BP 154 / 76; Pulse 80; Resp 16; Pulse Ox 98% on R/A; 3 20:00 BP 155 / 79; Pulse 82; Resp 16; Pulse Ox 98% on R/A; 3 21:00 BP 159 / 93; Pulse 88; Resp 20; Pulse Ox 100% on R/A; 3 23:25 BP 148 / 87; Pulse 82; Resp 19; Pulse Ox 98% on R/A; ll3 14:20 Pain Scale: Adult ll1 ED Course: 14:04 Patient arrived in ED. rg4 14:06 Christiano Calles MD is Attending Physician. bs3 14:22 Triage completed. ll1 14:23 Arm band placed on. ll1 15:00 Haylee Rinaldi, RN is Primary Nurse. eh3 15:00 Patient has correct armband on for positive identification. Placed in gown. Bed in low eh3 position. Call light in reach. Side rails up X2. Client placed on continuous cardiac and pulse oximetry monitoring. NIBP monitoring applied. Door closed. Noise minimized. Lights dimmed. Warm blanket given. 15:50 Initial lab(s) drawn, by me, sent to lab. Urine collected: clean catch specimen, wm cloudy. Inserted saline lock: 20 gauge in right antecubital area, using aseptic technique. Blood collected. 15:50 COVID swab sent to lab. wm 16:18 SARS-COV-2 Antigen Rapid Sent. wm 16:18 Basic Metabolic Panel Sent. wm 16:18 Acetaminophen Sent. wm 16:18 ETOH Level Sent. wm 16:18 Hepatic Function Sent. wm 16:18 PT-INR Sent. wm 16:18 Ptt, Activated Sent. wm 16:18 Salicylate Sent. wm 16:18 Urine Drug Screen Sent. wm 16:18 TSH Sent. wm 16:18 Comprehensive Metabolic Panel Sent. wm 16:18 CBC with Diff Sent. wm 17:11 faxed patient records to the following facilities in attempt to find placement/ [facility], [facility], [facility], [facility], [facility] and [facility]. 17:45 connected Lisa Rn from [facility] with Haylee Rn for patient transfer eb consultation. 18:28 connected Giovanny Rn from [facility] with Haylee Rn for patient consultation. eb 18:40 connected Devika Rn from [facility] with Haylee Rn for patient transfer eb consultation. 18:42 Alex Lawler would like to be called on his cell when we figure out where we eb are going to place her/ [phone]/ he is sick at home and can come up here if he needs to come up here/. 19:13 Attending Physician role handed off by Christiano Calles MD kdr 19:13 Noe Lake MD is Attending Physician. kdr 19:48 Urinalysis w/ reflexes Sent. sp5 21:43 Pt accepted to [facility] by Dr. Keenan \T\ [id number] per Carlos A Hennessy. wm 23:21 Called Pt and informed him of where she was going and gave the phone number as wm well. 23:24 No provider procedures requiring assistance completed. IV discontinued, intact, ll3 bleeding controlled, No redness/swelling at site. Pressure dressing applied. Administered Medications: 16:00 Drug: Geodon 10 mg Route: IM; Site: left deltoid; eh3 17:00 Follow up: Response: Anxiety decreased eh3 19:05 Drug: Potassium Chloride PO Liquid 40 mEq Route: PO; eh3 20:00 Follow up: Response: No adverse reaction eh3 19:05 Drug: Potassium Chloride IV 10 mEq Route: IV; Rate: bolus; Site: right antecubital; eh3 20:05 Follow up: Response: No adverse reaction; IV Status: Completed infusion; IV Intake: [id number] 19:45 Drug: Magnesium Sulfate IVPB 1 grams Route: IVPB; Infused Over: 1 hrs; Site: right eh3 antecubital; 21:15 Follow up: Response: No adverse reaction; IV Status: Completed infusion; IV Intake: eh3 100ml 19:55 Drug: NS 0.9% IV 1000 ml Route: IV; Rate: 100 ml/hr; Site: right antecubital; eh3 21:15 Follow up: IV Status: IV converted to saline lock; IV Intake: 600ml eh3 20:45 Drug: Nicoderm CQ Transdermal Patch 21 mg/24 hr 1 patches {Note: right scapular area.} eh3 Route: Transdermal; Site: affected area; 21:30 Follow up: Response: No adverse reaction 3 Medication: 23:25 VIS not applicable for this client. ll3 Intake: 20:05 IV: 50ml; Total: 50ml. eh3 21:15 IV: 100ml; Total: 150ml. eh3 21:15 IV: 600ml; Total: 750ml. eh3 Outcome: 22:09 ER care complete, transfer ordered by . kdr 23:24 Transferred by ground EMS 3 23:24 Condition: stable 23:24 Discharge instructions given to patient, Instructed on discharge instructions, follow up and referral plans. Demonstrated understanding of instructions, follow-up care. 23:25 Patient left the ED. 3 Signatures: Noe Lake MD MD kdr Garcia, Rubi rg4 Oniel Hernandez RN RN jl7 Miguelina Aguilar Lynsay, RN RN ll1 Pretty Reynoso Lynsea RN RN ll3 Haylee Rinaldi, THERESA RN eh3 Christiano Calles MD MD bs3 Mirna Peter RN RN sp5 Corrections: (The following items were deleted from the chart) 14:24 14:20 BP 166 / 96; Pulse 80bpm; Resp 18bpm; Pulse Ox 96%; Temp 98.8F; Pain 0/10, Adult; ll1 ll1 14:26 14:20 Chief complaint: Patient states: Can't sleep for 4 days, scattered thoughts, ll1 palpitations, scared of her surroundings. Daughter wanted her to get checked out. 1 16:17 16:16 Inserted saline lock: 20 gauge in right antecubital area, using aseptic technique. Blood collected. 16:17 16:16 Initial lab(s) drawn, by me, sent to lab. Urine collected: clean catch specimen, cloudy, 21:38 21:36 Haylee Rinaldi, RN is Primary Nurse. [place] [id number] 21:39 15:08 Haylee Rinaldi, THERESA is Primary Nurse. [place] [id number] 22:00 17:00 Reassessment: Patient appears in no apparent distress at this time. Patient eh3 and/or family updated on plan of care and expected duration. Pain level reassessed. Patient is alert, oriented x 3, equal unlabored respirations, skin warm/dry/pink. 3 22:00 18:00 Reassessment: Patient appears in no apparent distress at this time. Patient eh3 and/or family updated on plan of care and expected duration. Pain level reassessed. Patient is alert, oriented x 3, equal unlabored respirations, skin warm/dry/pink. 3
[2023-03-12 01:22] VITALS: TEMP 98.8
[2023-03-12 01:37] VITALS: BP 148/87; O2SAT 98
--- NOTE | 2023-03-12 14:18 | EKG ---
Test Date: 2023-03-11 Test Time: 16:16:07 Chronic Condition Nurse: NIKHIL MEASUREMENT RESULTS: Intervals: Rate: 82 ME: 128 QRSD: 74 QT: 412 QTc: 481 [place]: P: 60 ME: 128 QRS: 11 T: 64 INTERPRETIVE STATEMENTS: Normal sinus rhythm Biatrial enlargement Septal infarct, age undetermined Abnormal ECG Compared to ECG 02/28/2023 12:52:45 Sinus tachycardia no longer present Left ventricular hypertrophy no longer present Myocardial infarct finding still present Electronically Signed On 03-12-23 14:16:57 CDT by Chilo Roberto
--- NOTE | 2023-03-13 10:18 | EKG ---
Test Date: 2023-03-11 Test Time: 16:17:24 Economic Research Analyst: NIKHIL MEASUREMENT RESULTS: Intervals: Rate: 80 MO: 128 QRSD: 76 QT: 444 QTc: 512 Tower: P: 60 MO: 128 QRS: 15 T: 75 INTERPRETIVE STATEMENTS: Normal sinus rhythm Biatrial enlargement Septal infarct, age undetermined Prolonged QT Abnormal ECG Compared to ECG 03/11/2023 16:16:07 Prolonged QT interval now present Myocardial infarct finding still present Electronically Signed On 03-13-23 10:14:04 CDT by Murali Burton
== END 2023-03-11 23:25 ==
LOC: ER 14:03
DX: F31.64 Bipolar disorder, current episode mixed, severe, with psychotic features (principal); F17.210 Nicotine dependence, cigarettes, uncomplicated; Z20.822 Contact with and (suspected) exposure to COVID-19; Z88.1 Allergy status to other antibiotic agents; Z88.8 Allergy status to other drugs, medicaments and biological substances
CPT/HCPCS: 96365; 93005 ×2; 85025; 36415; 84132; 85610; 85730; 84443; 81003; 82248; 80053; 80307; 96372; 99285; 80143; 80179; 82077; 87811; J3480; J3475; J3486; J7040 ×2

== ENCOUNTER 2023-05-17 17:52 | Emergency (ER) | payer MEDICARE ==
--- OUTSIDE RECORDS SUMMARY | 2023-05-17 18:01 | XMS REPORT | Continuity of Care Document ---
:1960 Author Organization [facility] t Address [address] [place] [address] Care Team Providers Name Role Phone [phone] Primary Care Physician Unavailable Penny Heath Attending Clinician Deavers_C Attending Clinician Unavailable Deshazo_T Attending Clinician Unavailable Aaron Lyn DO Attending Clinician Jam Berumen DO Attending Clinician Sita Macedo MD Attending Clinician FOG_A_Provider Attending Clinician Unavailable Miguelina Kerns MA Attending Clinician Unavailable Karlo Nobles MD Attending Clinician IRENE CRUZ Attending Clinician Unavailable Irene Cruz DO Attending Clinician EDER ALVARADO Attending Clinician Unavailable Eder Alvarado MD Attending Clinician Jacob Sullivan MD Attending Clinician Tejas Allen Attending Clinician Unavailable PRECIOUS ISABEL Attending Clinician Unavailable CHANDNI CRUZ Attending Clinician Unavailable NYASIA BELTRAN Attending Clinician Unavailable KIAH, ITI Attending Clinician Unavailable MD MERLY HERNANDEZ Attending Clinician Unavailable NORMAN SALGADO Attending Clinician Unavailable MD FELIPE ORELLANA Attending Clinician Unavailable BYRON JOHNSON Attending Clinician Unavailable Deavers_C Admitting Clinician Unavailable Deshazo_T Admitting Clinician Unavailable SITA MACEDO Admitting Clinician Unavailable FOG_A_Provider Admitting Clinician Unavailable UNDEFINED Admitting Clinician Unavailable Bonilla Monae Admitting Clinician Unavailable PRECIOUS ISABEL Admitting Clinician Unavailable MERLY HERNANDEZ Admitting Clinician Unavailable FELIPE ORELLANA Admitting Clinician Unavailable MD FELIPE ORELLANA Admitting Clinician Unavailable Payers Payer Name Policy Type Policy Number Effective Date Expiration Date Nicholas garza MEDICARE PART B MB [id number] [facility] [id number] (MEDICARE 00:00:00 REPLACEMENT HMO) [facility] [id number] 2021 MEDICARE ADVANTAGE 00:00:00 PLAN Problems Condition Condition Condition Status Onset Resolution Last Treating Co mments Source Name Details Category Date Date Treatment Clinician Date SOB SOB Disease Active Methodi (shortness (shortness 4-26 st of breath) of breath) 00:00: Ho spita 00 l 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 [address] st behavior behavior 00:00: Hospit a 00 l 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 [address] ocyte ocyte 00:00: Hospita glycoprote glycoprote 00 l in in antibody antibody disorder disorder (MOGAD) (MOGAD) Hypoxemia Hypoxemia Disease Active Met hodi 4-07 st 00:00: Hospita 00 l Hypoxia Hypoxia Disease Active Methodi 4-02 st 00:00: Hospita 00 l COVID-19 COVID-19 Disease Active Metho di virus virus 4-02 st detected detected 00:00: Hospit a 00 [...] Disease Active C [facility] overdose [facility]ica l 00 Center Shock Shock Disease Recur[facility] Anxiety Anxiety Disease Active 2008-10 Univers disorder disorder 2-18 ity of 00:00: [place] [facility] Pain in Pain in Problem Active Common joint of joint of Spirit left foot left foot - CH I [facility] Closed Closed Problem Active Common nondisplac nondisplac Sp celsa ed ed - [facility] fracture fracture [facility] proximal proximal Medica l phalanx of phalanx of Ce nter lesser toe lesser toe of left of left foot, foot, initial initial encounter encounter Pain in Pain in Problem Active Common joint of joint of Spirit left wrist left wrist - CHI [facility] Closed Closed Problem Active Common nondisplac nondisplac Sp celsa ed ed - CHI fracture fracture St of of [facility] proximal proximal Medica l phalanx of phalanx of Ce nter lesser toe lesser toe of left of left foot with foot with routine routine healing healing Strain of Strain of Problem Active 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 - [facility] longus longus St tendon tendon [facility] Closed Closed Problem Active Common torus torus Spirit fracture fracture - [facility] of distal of distal St end of end of [facility] left left Medical radius, radius, Center initial initial encounter encounter Closed Closed Problem Active Common torus torus Spirit fracture fracture - [facility]I of distal of distal St end of end of [facility] left left [facility] radius radius Center with with routine routine healing healing Allergies, Adverse Reactions, Alerts Allergy Allergy Status Severity Reaction(s) Onset Inactive Treating Comm ents Source Name Type Date Date Clinician Risperid Propensi Active Other (See Unable to Methodi one ty to Comments) 02-[address] adverse 00:00: Hospita reaction 00 l s to drug Fluphena Propensi Active Other (See Severe Me thhector tyler ty to Comments) 02-[address] adverse 00:00: Hospita reaction 00 l s to drug Fluphena Propensi Active Unknown - States it Dasia tyler ty to See comments 6 makes her i ty of adverse 00:00: world [place] reaction 00 tilt and Medica l s to go funny Branch drug FLUPHENA DRUG Active Low Unknown-Cmnt Un denis TYLER INGREDI 6-20 ity of 00:00: [place] 00 [facility] naloxone DA Active OR JEFF [facility] 6-12 [place] 00:00: d 00 [facility] ondanset DA Active OR HEADACHE [facility] reji 6 [place] 00:00: d 00 [facility] escitalo DA Active OR [facility] pram 03-20 [place] 00:00: d 00 [facility] haloperi DA Active U SLUGGISHNESS HC A dol 6- [place] 00:00: d 00 [facility] buprenor DA Active OR [facility]FF [facility] phine 03-20 [place] 00:00: d 00 [facility] Azithrom Propensi Active GI Method i ycin ty to Intolerance 11-06 st adverse 00:00: Hospita reaction 00 l s to drug Risperid Drug Active Per OSH [facility] one Allergy 10-15 [facility] 00:[facility]: Medical s [address] [place] [address] haloperi DA Active U SLUGGISHNESS HC A dol 2 [place] 00:00: d 00 [facility] buprenor DA Active OR JEFF [facility] phine 2 [place] 00:00: d 00 [facility] naloxone DA Active OR [facility]FF [facility] 11-27 [place] 00:00: d 00 [facility] ondanset DA Active OR [facility]ACHE [facility] reji 11-27 [place] 00:00: d 00 [facility] escitalo DA Active OR JEFF [facility] pram 219 [place] 00:00: d 00 [facility] DULOXETI DRUG Active NE INGREDI 2-17 [place] 00:00: n 00 ESCITALO DRUG Active PRAM INGREDI 2-17 [place] 00:00: n 00 MIRTAZAP DRUG Active INE INGREDI 2-17 [place] 00:00: n 00 OTHER Allergy Active 2015-0 2-17 [place] 00:00: n 00 PAROXETI DRUG Active 2015- NE INGREDI 2-17 [place] 00:00: n 00 PREGABAL DRUG Active 2016-0 MD IN INGREDI 2-17 [place] 00:00: n 00 SULFAMET DRUG Active MD HOXAZOLE -17 Anderso -TRIMETH 00:00: n OPRIM 00 TRAZODON DRUG Active MD E INGREDI 2-17 [place] 00:00: n 00 VENLAFAX Drug Active 0 MD INE Class 2-17 [place] ANALOGUE 00:00: n S 00 ADHESIVE Drug Active MD Class 2-17 [place] 00:00: n 00 AMITRIPT DRUG Active MD YLINE INGREDI 17 [place] 00:00: n 00 ARIPIPRA DRUG Active MD ZOLE INGREDI 17 [place] 00:00: n 00 AZITHROM DRUG Active MD YCIN INGREDI 17 [place] 00:00: n 00 BITE-N-I DRUG Active MD TCH 2-17 [place] 00:00: n 00 BUPRENOR DRUG Active MD PHINE-NA 11-25 [place] LOXONE 00:00: n 00 CARBAMAZ DRUG Active MD EPINE INGREDI 17 [place] 00:00: n 00 CITALOPR DRUG Active MD AM INGREDI 17 [place] 00:00: n 00 Risperda Adverse Active Info Not Commo n l Reaction Available [facility] NO KNOWN Drug Active Univers ALLERGIE Class ity of S [facility] Family History Family Member Diagnosis Comments Start Date Stop Date Source Other Cancer [facility] Social History Social Habit Start Date Stop Date Quantity Comments Source Gender identity 2021-11-25 Identifies as Method ist 10:05:51 female gender Hospital (finding) Sexual orientation 2021-11-25 Heterosexual Meth odist 10:05:51 (finding) Hospital History of tobacco Cigarette Smoker [facility] use [facility] History of Social 2023-02-03 2023-02-[address] function 00:00:00 00:00:00 Hospital Alcohol intake 2023-02-02 2023-02-02 Current drinker of Me thodist 00:00:00 00:00:00 alcohol (finding) Hospita l Exposure to 2022-03-18 2022-03-28 Not sure University of SARS-CoV-2 (event) 00:00:00 08:20:00 [facility] Cigarettes smoked 2021-11-06 2021-11-[address] current (pack per 00:00:00 00:00:00 Hospita l day) - Reported Cigarette 2021-11-06 2021-11-06 [facility] pack-years 00:00:00 00:00:00 Hospital Alcohol Comment 2021-11-06 2021-11-06 rarely [facility] 00:00:00 00:00:00 Hospital Tobacco use and 2019-07-17 2019-07-17 Never used Universit y of exposure 00:00:00 00:00:00 [facility] Sex Ass[birth year] At [birth year] DIETER [place] 00:00:00 00:00:00 [facility] Smoking Status Start Date Stop Date Source Current every day smoker 2019-07-17 00:00:00 Uni versity [facility] Medications Ordered Filled Start Stop Current Ordering Indication Dosage Frequency Signature Comments Components Source Medication Medication Date Date Medication? Clinician (SIG) Name Name QUEtiapine Yes 500mg QD Take 2.5 Me thodi (SEROquel) 4-[address] 200 MG 13:38: (500 mg Hospita tablet 00 total) by l mouth nightly. ALPRAZolam Yes 1mg Q.[id number] Take 1 Methodi (XANAX) 1 4-30 [id number] tablet (1 st MG tablet 13:38: 3D mg total) Hos ganesh 00 by mouth 3 l (three) times a day as needed for anxiety. QUEtiapine Yes 500mg QD Take 2.5 Me thodi (SEROquel) 4-[address] 200 MG 13:38: (500 mg Hospita tablet 00 total) by l mouth nightly. ALPRAZolam 0 Yes 1mg Q.[id number] Take 1 Methodi (XANAX) 1 4-30 [id number] tablet (1 st MG tablet 13:38: 3D mg total) Hos ganesh 00 by mouth 3 l (three) times a day as needed for anxiety. QUEtiapine Yes 500mg QD Take 2.5 Me thodi (SEROquel) 4-[address] 200 MG 13:38: (500 mg Hospita tablet 00 total) by l mouth nightly. ALPRAZolam Yes 1mg Q.[id number] Take 1 Methodi (XANAX) 1 02-05 [id number] tablet (1 st MG tablet 13:38: 3D mg total) Hos ganesh 00 by mouth 3 l (three) times a day as needed for anxiety. gabapentin 2022- No 800mg Q.[id number] Take 1 Methodi (NEURONTIN) 02-[id number] 800 mg 13:39: 00:00 3D [...] 13:39: 00:00 daily. 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 gabapentin 2022- No 800mg Q.[id number] Take 1 Methodi (NEURONTIN) 02-[id number] 800 mg 13:39: 00:00 3D [...] 13:39: 00:00 daily. 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 gabapentin 2022- No 800mg Q.[id number] Take 1 Methodi (NEURONTIN) 02-[id number] 800 mg 13:39: 00:00 3D [...] to use until bottle ran out predniSONE 3-0 2022- No 60mg QD Take 60 mg Methodi (DELTASONE) -29 04-[address] 20 mg 13:39: 00:00 daily. 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 FLUoxetine 3-0 Yes 80mg QD Take 4 Metho di [...] by unit) mouth capsule daily. capsule aspirin 3-0 Yes 81mg QD Take 1 Methodi (ECOTRIN) - tablet (81 st 81 MG 13:39: mg total) Hospita enteric 00 by mouth l coated daily. tablet FLUoxetine 3-0 Yes 80mg QD Take 4 Metho di [...] Yes 81mg QD Take 1 Methodi (ECOTRIN) 4-29 tablet (81 st 81 MG 13:39: mg total) Hospita enteric 00 by mouth l coated daily. tablet FLUoxetine 2022-0 Yes 80mg QD Take 4 Metho di (PROzac) 20 -[address] MG capsule 13:39: (80 mg Hospi ta 00 total) by l mouth daily. acetaminoph 0 Yes 1000mg Q6H Take 2 Me thodi en -[address] (TYLENOL) 13:39: (1,000 mg Hos ganesh 500 MG 00 total) by l tablet mouth every 6 (six) hours as needed for mild pain, headaches or fever. cholecalcif 0 Yes 2000U QD Take 1 Met hodi antolin, 02-[address] vitamin D3, 13:39: (2,000 Hosp tania 50 mcg 00 Units l (2,000 total) by unit) mouth capsule daily. capsule aspirin 0 Yes 81mg QD Take 1 Methodi (ECOTRIN) 4-29 tablet (81 st 81 MG 13:39: mg total) Hospita enteric 00 by mouth l coated daily. tablet albuterol 2022- No 2{puff} Q6H Inhale 2 Methodi (PROAIR 02-[address] HFA) 90 11:57: 00:00 every 6 Hospit a mcg/actuati 37 :00 (six) l on inhaler hours as needed for wheezing or shortness of breath. budesonide- 0 2022- No Q.5D Inhale 2 M ethodi glycopyr-fo 02-04 inhalation s t rmoterol 11:57: 00:00 s 2 (two) Hos ganesh (Breztri 37 :00 times a l Aerosphere) day. NOTE: 160-9-4.8 New mcg/actuati prescripti on HFA on aerosol 11/23/21. inhaler MD switched patient from Advair 250/50 to Breztri. albuterol 0 2022- No 2{puff} Q6H Inhale 2 Methodi (PROAIR 4-29 04-[address] HFA) 90 11:57: 00:00 every 6 Hospit a mcg/actuati 37 :00 (six) l on inhaler hours as needed for wheezing or shortness of breath. budesonide- 2022-0 2023- No Q.5D Inhale 2 M ethodi glycopyr-fo 02-04-29 inhalation s t rmoterol 11:57: 00:00 s 2 (two) Hos ganesh (Breztri 37 :00 times a l Aerosphere) day. NOTE: 160-9-4.8 New mcg/actuati prescripti on HFA on aerosol 11/23/21. inhaler MD switched patient from Advair 250/50 to Breztri. albuterol 2022-0 2022- No 2{puff} Q6H Inhale 2 Methodi (PROAIR 4-29 04-[address] HFA) 90 11:57: 00:00 every 6 Hospit a mcg/actuati 37 :00 (six) l on inhaler hours as needed for wheezing or shortness of breath. budesonide- 2022-0 3- No Q.5D Inhale 2 M ethodi glycopyr-fo 02-04-29 inhalation s t rmoterol 11:57: 00:00 s 2 (two) Hos ganesh (Breztri 37 :00 times a l Aerosphere) day. NOTE: 160-9-4.8 New mcg/actuati prescripti on HFA on aerosol 11/23/21. inhaler MD switched patient from Advair 250/50 to Breztri. predniSONE 2023-0 Yes [id number] 40mg QD Take 2 Methodi (DELTASONE) 4-[address] 20 mg 00:00: (40 mg Hospita tablet 00 total) by l mouth daily. cefdinir 2023-0 Yes 300mg Q.5D Take 1 Method i (OMNICEF) 4-[address] 300 MG 00:00: (300 mg Hospita capsule 00 total) by l mouth 2 (two) times a day. predniSONE 2023-0 Yes [id number] 40mg QD Take 2 Methodi (DELTASONE) 4-[address] 20 mg 00:00: (40 mg Hospita tablet 00 total) by l mouth daily. cefdinir 2022-0 Yes 300mg Q.5D Take 1 Method i (OMNICEF) 4-[address] 300 MG 00:00: (300 mg Hospita capsule 00 total) by l mouth 2 (two) times a day. predniSONE 2022-0 Yes [id number] 40mg QD Take 2 Methodi (DELTASONE) 4-[address] 20 mg 00:00: (40 mg Hospita tablet 00 total) by l mouth daily. cefdinir 2022-0 Yes 300mg Q.5D Take 1 Method i (OMNICEF) 4-[address] 300 MG 00:00: (300 mg Hospita capsule 00 total) by l mouth 2 (two) times a day. albuterol 2022-0 2022- No 2{puff} Q6H Inhale 2 Methodi (PROAIR 4-29 05-[address] HFA) 90 00:00: 04:59 every 6 Hospit a mcg/actuati 00 :00 (six) l on inhaler hours as needed for wheezing or shortness of breath for up to 30 days. budesonide- 2022-0 2022- No Q.5D Inhale 2 M ethodi glycopyr-fo -29 05-30 inhalation s t rmoterol 00:00: 04:59 [...] Take with full glass of water. albuterol 2022-0 2022- No 2{puff} Q6H Inhale 2 Methodi (PROAIR 4-29 05-[address] HFA) 90 00:00: 04:59 every 6 Hospit a mcg/actuati 00 :00 (six) l on inhaler hours as needed for wheezing or shortness of breath for up to 30 days. budesonide- 3-0 2023- No Q.5D Inhale 2 M ethodi glycopyr-fo 4-29 05-30 inhalation s t rmoterol 00:00: 04:59 s 2 (two) Hos ganesh (Breztri 00 :00 times a l Aerosphere) day for 30 160-9-4.8 days. mcg/actuati NOTE: New on HFA prescripti aerosol on inhaler 11/23/21. switched patient from Advair 250/50 to Breztri. varenicline 2022-0 2023- No .5mg Q.5D Take 1 Met hodi (Chantix) 4-29 05-[address] 0.5 MG 00:00: 04:59 (0.5 mg Hospita tablet 00 :00 total) by l mouth 2 (two) times a day for 30 days. Take with full glass of water. albuterol 2022-0 2022- No 2{puff} Q6H Inhale 2 Methodi (PROAIR 4-29 05-[address] HFA) 90 00:00: 04:59 every 6 Hospit a mcg/actuati 00 :00 (six) l on inhaler hours as needed for wheezing or shortness of breath for up to 30 days. budesonide- 3-0 2023- No Q.5D Inhale 2 M ethodi glycopyr-fo 4-29 05-30 inhalation s t rmoterol 00:00: 04:59 s 2 (two) Hos ganesh (Breztri 00 :00 times a l Aerosphere) day for 30 160-9-4.8 days. mcg/actuati NOTE: New on HFA prescripti aerosol on inhaler 11/23/21. switched patient from Advair 250/50 to Breztri. varenicline 3-0 2023- No .5mg Q.5D Take 1 Met hodi (Chantix) 4-29 05-[address] 0.5 MG 00:00: 04:59 (0.5 mg Hospita tablet 00 :00 total) by l mouth 2 (two) times a day for 30 days. Take with full glass of water. benzonatate 2022-0 2022- No 100mg Q.[id number] Take 1 Methodi (Tessalon 4-29 05-[id number] [place]) 100 00:00: 04:59 3D (100 mg Ho spita MG capsule 00 :00 total) by l mouth 3 (three) times a day as needed for cough for up to 14 days. benzonatate 2022- No 100mg Q.[id number] Take 1 Methodi (Tessalon 4-29 05-[id number] [place]) 100 00:00: 04:59 3D (100 mg Ho spita MG capsule 00 :00 total) by l mouth 3 (three) times a day as needed for cough for up to 14 days. benzonatate 2022-2022- No 100mg Q.[id number] Take 1 Methodi (Tessalon 4-29 05-[id number] [place]) 100 00:00: 04:59 3D (100 mg Ho spita MG capsule 00 :00 total) by l mouth 3 (three) times a day as needed for cough for up to 14 days. cefdinir 2022- No 300mg Q.5D Take 1 Metho di (OMNICEF) -04 02-[address] 300 MG 00:00: 00:00 (300 mg Hospita capsule 00 :00 total) by l mouth 2 (two) times a day. cefdinir 2022- No 300mg Q.5D Take 1 Metho di (OMNICEF) 4-29 -[address] 300 MG 00:00: 00:00 (300 mg Hospita capsule 00 :00 total) by l mouth 2 (two) times a day. cefdinir 2022- No 300mg Q.5D Take 1 Metho di (OMNICEF) -29 -[address] 300 MG 00:00: 00:00 (300 [...] QD Take 1 M ethodi azole-trime 5-14 -[address] thoprim 00:00: 04:59 mouth Hospita (Bactrim 00 :00 daily for l DS) 800-160 30 days. mg per tablet OLANZapine 2021-0 2021- No [id number] 5mg QD Take 1 Methodi (ZYPREXA) 5 02-18- tablet (5 st MG tablet 00:00: 04:59 mg total) Ho spita 00 :00 by mouth l nightly for 30 days. OLANZapine 2021-0 2021- No [id number] 5mg QD Take 1 Methodi (ZYPREXA) 5 02-18 tablet (5 st MG tablet 00:00: 04:59 mg total) Ho spita 00 :00 by mouth l nightly for 30 days. cyclobenzap 2021-0 Yes 10mg Q.[id number] Take 1 Methodi rine 4-22 [id number] tablet (10 st (FLEXERIL) 00:00: 3D mg total) Ho spita 10 mg 00 by mouth 3 l tablet (three) times a day as needed for muscle spasms for up to 15 doses. cyclobenzap 2021-0 Yes 10mg Q.[id number] Take 1 Methodi rine 4-22 [id number] tablet (10 st (FLEXERIL) 00:00: 3D mg total) Ho spita 10 mg 00 by mouth 3 l tablet (three) times a day as needed for muscle spasms for up to 15 doses. cyclobenzap 2021-0 Yes 10mg Q.[id number] Take 1 Methodi rine 4-22 [id number] tablet (10 st (FLEXERIL) 00:00: 3D mg [...] ORAL 2-25 oral QHS ity of 11:05: [address] PREMARIN Yes Use PRN Univer s VAGINAL 2-25 ity of 11:05: [address] MELATONIN Yes Take 1 Univer s ORAL 2-25 oral QHS ity of 11:05: [address] PREMARIN Yes Use PRN Univer s VAGINAL 2-25 ity of 11:05: [address] ANGELIQ Yes Take 1 Univers 1-0.5 MG 2-25 oral daily ity o f ORAL TAB 11:05: [address] ACCUTANE 20 Yes 1 capsule U nivers MG ORAL CAP 2-25 po BID ity of 11:05: [address] ANGELIQ Yes Take 1 Univers 1-0.5 MG 2-25 oral daily ity o f ORAL TAB 11:05: [address] ACCUTANE 20 Yes 1 capsule U nivers MG ORAL CAP 2-25 po BID ity of 11:05: [address] CYTOMEL 5 2008-10 Yes [id number] Take 1 Un denis MCG ORAL 2-15 oral BID ity of TAB 00:00: [address] KLONOPIN 2008-10 Yes [id number] Take 1 Uni vers 0.5 MG ORAL 2-15 oral TID ity of TAB 00:00: [address] CYTOMEL 5 2008-10 Yes [id number] Take 1 Un denis MCG ORAL 2-15 oral BID ity of TAB 00:00: [address] KLONOPIN 2008-10 Yes [id number] Take 1 Uni vers 0.5 MG ORAL 2-15 oral TID ity of TAB 00:00: [place] [facility] Ibuprofen Ibuprofen Yes Naomi TK 1 T PO Common Fan TID WITH Spirit FOOD OR - CHI MILK [facility] BuPROPion BuPROPion Yes Naomi TAKE ONE Common HCl HCl Fan (1) Spirit TABLET(S) - [facility] BY MOUTH St TWICE A DAY. [facility] Gabapentin Gabapentin Yes Naomi not C ommon Meng defined [facility] Wellbutrin Wellbutrin Yes Naomi not C ommon Fan defined [facility] amitriptyli amitriptyli Yes Naomi not Common ne ne Fan defined [facility] Tramadol Tramadol Yes Naomi not Commo n HCl HCl Fan defined [facility] Fluoxetine Fluoxetine Yes Naomi not C ommon Fan defined [facility] Levothyroxi Levothyroxi Yes Naomi not Common ne Sodium ne Sodium Fan defined [facility] Immunizations Ordered Immunization Filled Immunization Date Status Commen ts Source Name Name [facility] 2022-01-13 Completed [facility] [facility] 2022-01-13 Completed [facility] [facility] 2022-01-13 Completed [facility] [facility] 2022-01-12 Completed [facility] 00[facility] [facility] 2022-01-12 Completed [facility] 00[facility] [facility] 2022-01-12 Completed [facility] 00[facility] [facility] 2022-01-11 Completed [facility] 00[facility]:[address] [facility] 2022-01-11 Completed [facility] 00[facility] [facility] 2022-01-11 Completed [facility] 00[facility] [facility] 2022-01-10 Completed [facility] 00[facility]:[address] [facility] 2022-01-10 Completed [facility] 00[facility]:[address] [facility] 2022-01-10 Completed [facility] 00[facility]:[address] [facility] 2022-01-09 Completed [facility] 00[facility]:[address] [facility] 2022-01-09 Completed [facility] 00:[facility]:[address] [facility] 2022-01-09 Completed [facility] 00:[facility]:00 [facility] Vital Signs Vital Name Observation Time Observation Value Comments Source Systolic blood 2022-03-28 13:24:00 170 mm[Hg] Univer sity of pressure [facility] Diastolic blood 2022-03-28 13:24:00 96 mm[Hg] Unive rsity of pressure [facility] Heart rate 2022-03-28 13:24:00 94 /min [facility] Body temperature 2022-03-28 13:24:00 36.67 Lily Univ ersity of [facility] Respiratory rate 2022-03-28 13:24:00 18 /min Univ ers[facility] Body height 2022-03-28 13:24:00 162.6 cm [facility] Body weight 2022-03-28 13:24:00 47.628 kg [facility] BMI 2022-03-28 13:24:00 18.02 kg/m2 [facility] Oxygen saturation in 2022-03-28 13:24:00 100 /min University of Arterial blood by [place] [employer] mae Pulse oximetry Branch Systolic blood 2022-03-28 06:59:00 149 mm[Hg] Univer sity of pressure [facility] Diastolic blood 2022-03-28 06:59:00 98 mm[Hg] Unive rsity of pressure [facility] Heart rate 2022-03-28 06:59:00 91 /min [facility] Body temperature 2022-03-28 06:59:00 37.06 Lily Univ [facility] Respiratory rate 2022-03-28 06:59:00 20 /min Univ ers[facility] Body height 2022-03-28 06:59:00 162.6 cm [facility] Body weight 2022-03-28 06:59:00 47.628 kg [facility] BMI 2022-03-28 06:59:00 18.02 kg/m2 [facility] Oxygen saturation in 2022-03-28 06:59:00 97 /min [facility] Arterial blood by Vouchr mae Pulse oximetry Branch Heart rate 2023-02-04 17:59:00 95 /min [facility] Respiratory rate 2023-02-04 17:59:00 13 /min [facility] Systolic blood 2023-02-04 17:21:59 122 mm[Hg] [facility] pressure Diastolic blood 2023-02-04 17:21:59 58 mm[Hg] [facility] pressure Body temperature 2023-02-04 17:21:59 37 Lily [facility] Oxygen saturation in 2023-02-04 17:21:59 93 /min [facility] Arterial blood by Pulse oximetry Body weight 2023-02-04 09:27:00 59.5 kg [facility] BMI 2023-02-04 09:27:00 22.52 kg/m2 [facility] Body height 2023-02-01 21:46:00 162.6 cm [facility] Procedures Procedure Date / Time Performing Clinician Source Performed CBC WITH PLATELET AND 2023-02-04 09:23:00 Robby [facility] DIFFERENTIAL COMPREHENSIVE METABOLIC 2023-02-04 09:23:00 [facility] PANEL VENOUS BLOOD GAS 2023-02-04 09:23:00 Shola [facility] ESTIMATED GFR 2023-02-04 09:23:00 Rehrer, [facility] CT ANGIOGRAM PE CHEST 2023-02-03 16:50:13 Robby [facility] CBC WITH PLATELET AND 2023-02-03 09:12:00 Robby [facility] DIFFERENTIAL COMPREHENSIVE METABOLIC 2023-02-03 09:12:00 [facility] PANEL VENOUS BLOOD GAS 2023-02-03 09:12:00 Shola [facility] ESTIMATED GFR 2023-02-03 09:12:00 Rehrer, [facility] SPUTUM CULTURE 2023-02-02 19:30:00 Christiano Antonio spital GRAM STAIN 2023-02-02 19:30:00 Jam Berumen spital LACTIC ACID LEVEL 2023-02-02 14:42:[facility] 2023-02-02 14:42:00 Christiano Antonio spital TTE COMPLETE, W CONTRAST, 2023-02-02 13:30:00 Bustamante, [facility] W DOPPLER ([id number]) TROPONIN T 2023-02-02 08:21:00 Rehrer, [facility] LACTIC ACID LEVEL, SEPSIS 2023-02-02 08:21:00 [facility] - NOW AND REPEAT 2X EVERY [place] 3 HOURS CBC WITH PLATELET AND 2023-02-02 08:21:00 Robby, [facility] DIFFERENTIAL COMPREHENSIVE METABOLIC 2023-02-02 08:21:00 Bustamante, [facility] PANEL D-DIMER 2023-02-02 08:21:00 Robby, [facility] ESTIMATED GFR 2023-02-02 08:21:00 Rehrer, [facility] VENOUS BLOOD GAS 2023-02-02 04:12:00 Robby, [facility] CHEST WO CONTRAST 2023-02-02 02:36:06 [facility] [place] TROPONIN T 2023-02-02 02:36:00 Rehrer, [facility] LACTIC ACID LEVEL, SEPSIS 2023-02-02 02:36:00 [facility] - NOW AND REPEAT 2X EVERY [place] 3 HOURS XR CHEST 2 VW 2023-02-02 01:33:00 Kishore [facility] [place] RESPIRATORY PATHOGEN 2023-02-02 00:39:00 [facility] PANEL WITH COVID-19 [place] RT-PCR BLOOD CULTURE, AEROBIC & 2023-02-02 00:38:00 [facility] ANAEROBIC [place] LACTIC ACID LEVEL, SEPSIS 2023-02-02 00:38:00 [facility] - NOW AND REPEAT 2X EVERY [place] 3 HOURS BLOOD CULTURE, AEROBIC & 2023-02-02 00:37:00 [facility] ANAEROBIC [place] ECG ED PRELIMINARY 2023-02-01 23:51:26 [facility] INTERPRETATION [place] CBC WITH PLATELET AND 2023-02-01 22:21:00 Rehrer, [facility] DIFFERENTIAL COMPREHENSIVE METABOLIC 2023-02-01 22:21:00 Rehrer, [facility] PANEL TROPONIN T 2023-02-01 22:21:00 Rehrer, [facility] NT-PROBNP 2023-02-01 22:21:00 Rehrer, [facility] PARTIAL THROMBOPLASTIN 2023-02-01 22:21:00 Rehrer, [facility] TIME (PTT) PROTHROMBIN TIME WITH INR 2023-02-01 22:21:00 Rehrer, [facility] ESTIMATED GFR 2023-02-01 22:21:00 Rehrer, [facility] ECG 12-LEAD 2023-02-01 21:32:28 Rehrer, [facility] CBC WITH PLATELET AND 2022-07-08 20:01:00 Karlo oNbles [facility] DIFFERENTIAL PLATELET FUNCTION 2022-07-08 20:01:00 Karlo Nobles [facility] ANALYSIS ELECTROLYTE (CHEM4) 2022-07-08 20:01:00 Karlo Nobles [facility] PROTHROMBIN TIME WITH INR 2022-07-08 20:[facility] CONSENT/REFUSAL FOR 2022-03-28 13:08:29 Doctor Estelle [facility] DIAGNOSIS AND TREATMENT [facility] NOTICE OF PRIVACY 2022-03-28 06:49:29 [facility] PR[facility] CONSENT/REFUSAL FOR 2022-03-28 06:49:06 Doctor Estelle [facility] DIAGNOSIS AND TREATMENT [facility] [place] Plan of Care Planned Activity Planned Date Details Comments Source Future Scheduled 2023-05-12 Screening for [facility] Test 02:54:33 malignant neoplasm of colon (procedure) [code = 265743659] Future Scheduled 2023-05-12 Screening for [facility] Test 02:54:33 malignant neoplasm of colon (procedure) [code = 505092412] Future Scheduled 2023-05-12 Pneumococcal Vaccine: [facility] Test 02:54:33 Pediatrics (0 to 5 Years) and At-Risk Patients (6 to 64 Years) (1 - PCV) [code = Pneumococcal Vaccine: Pediatrics (0 to 5 Years) and At-Risk Patients (6 to 64 Years) (1 - PCV)] Future Scheduled 2023-05-12 Screening for [facility] Test 02:54:33 malignant neoplasm of cervix (procedure) [code = 915641034] Future Scheduled 2023-05-12 Screening for [facility] Test 02:54:33 malignant neoplasm of colon (procedure) [code = 880520774] Future Scheduled 2023-05-12 Screening for [facility] Test 02:54:33 malignant neoplasm of lung (procedure) [code = 300459332] Future Scheduled 2023-05-12 SHINGLES VACCINES (1 Met [facility] Test 02:54:33 of 2) [code = SHINGLES VACCINES (1 of 2)] Future Scheduled 2023-05-12 BREAST CANCER [facility] Test 02:54:33 SCREENING [code = BREAST CANCER SCREENING] Future Scheduled 2023-05-12 COVID-19 VACCINE (2 - [facility] Test 02:54:33 Booster for Trent series) [code = COVID-19 VACCINE (2 - Booster for Trent series)] Future Scheduled 2023-05-12 Screening for [facility] Test 02:54:33 malignant neoplasm of colon (procedure) [code = 798638590] Future Scheduled 2023-05-12 Screening for [facility] Test 02:54:33 malignant neoplasm of colon (procedure) [code = 388719272] Future Scheduled 2023-05-12 INFLUENZA VACCINE Method [facility] Test 02:54:33 [code = INFLUENZA VACCINE] Future Scheduled 2023-02-15 Pneumococcal Vaccine: [facility] Test 09:05:17 Pediatrics (0 to 5 Years) and At-Risk Patients (6 to 64 Years) (1 - PCV) [code = Pneumococcal Vaccine: Pediatrics (0 to 5 Years) and At-Risk Patients (6 to 64 Years) (1 - PCV)] Future Scheduled 2023-02-15 Screening for [facility] Test 09:05:17 malignant neoplasm of cervix (procedure) [code = 174932614] Future Scheduled 2023-02-15 COLONOSCOPY SCREENING [facility] Test 09:05:17 [code = COLONOSCOPY SCREENING] Future Scheduled 2023-02-15 Screening for [facility] Test 09:05:17 malignant neoplasm of lung (procedure) [code = 379121940] Future Scheduled 2023-02-15 SHINGLES VACCINES (1 Met [facility] Test 09:05:17 of 2) [code = SHINGLES VACCINES (1 of 2)] Future Scheduled 2023-02-15 BREAST CANCER [facility] Test 09:05:17 SCREENING [code = BREAST CANCER SCREENING] Future Scheduled 2023-02-15 COVID-19 VACCINE (2 - [facility] Test 09:05:17 Booster for Trent series) [code = COVID-19 VACCINE (2 - Booster for Trent series)] Future Scheduled 2023-02-15 INFLUENZA VACCINE [facility] Test 09:05:17 [code = INFLUENZA VACCINE] Future Scheduled 2023-02-15 Pneumococcal Vaccine: [facility] Test 09:05:17 Pediatrics (0 to 5 Years) and At-Risk Patients (6 to 64 Years) (1 - PCV) [code = Pneumococcal Vaccine: Pediatrics (0 to 5 Years) and At-Risk Patients (6 to 64 Years) (1 - PCV)] Future Scheduled 2023-02-15 Screening for [facility] Test 09:05:17 malignant neoplasm of cervix (procedure) [code = 982493553] Future Scheduled 2023-02-15 COLONOSCOPY SCREENING [facility] Test 09:05:17 [code = COLONOSCOPY SCREENING] Future Scheduled 2023-02-15 Screening for [facility] Test 09:05:17 malignant neoplasm of lung (procedure) [code = 114501798] Future Scheduled 2023-02-15 SHINGLES VACCINES (1 Met [facility] Test 09:05:17 of 2) [code = SHINGLES VACCINES (1 of 2)] Future Scheduled 2023-02-15 BREAST CANCER [facility] Test 09:05:17 SCREENING [code = BREAST CANCER SCREENING] Future Scheduled 2023-02-15 COVID-19 VACCINE (2 - [facility] Test 09:05:17 Booster for Trent series) [code = COVID-19 VACCINE (2 - Booster for Trent series)] Future Scheduled 2023-02-15 INFLUENZA VACCINE [facility] Test 09:05:17 [code = INFLUENZA VACCINE] Encounters Start End Encounter Admission Attending Care Care Encounter Source Date/Time Date/Time Type Type Clinicians Facility Department ID 2022-01-07 Outpatient RENETTA JACKSON [id number] [place] 15:56:03 [id number] [facility] 2022-01-05 Outpatient RENETTA JACKSON [id number] [place] 14:13:45 [id number] [facility] 2023-04-27 2023-04-27 SULMA Francis 2.16.840. 2.16.840.1. [facility] [id number] [facility] 15:30:00 16:30:00 Deavers 1.026173. 096727.4.6. 862 [facility] 4.6.85294 [id number] 2023-04-27 2023-04-27 Outpatient Deavers_C [facility] [place] [id number] [facility] 00:00:00 00:00:00 0720 [facility] l [facility] 2023-04-24 2023-04-24 Outpatient Deshazo_T [facility] [id number] [facility] 00:00:00 00:00:00 0717 Medica l Group 2023-04-18 2023-04-18 [facility] [id number] [facility] 00:00:00 00:00:00 0711 Medica l Group 2023-02-01 2023-02-04 Emergency Rehrer, Aaron Aquilino 1.2.840.1 10 [id number] Methodi 16:52:00 13:38:00 Jam Berumen 05390.1.1 173 [facility] 3.430.2.7 H ospita .3.689371 l .8 2023-02-01 2023-02-04 Emergency Rehrer, Aaron Rolle 1.2.840.1 10 [id number] Methodi 16:52:00 13:38:00 Jam Berumen 34163.1.1 173 [facility], Sita 3.430.2.7 H ospita .3.494430 l .8 2023-02-01 2023-02-01 Travel 1.2.840.1 1.2.712.914 4190 [id number] Methodi 00:00:00 00:00:[address] 3.430.2.7 0.2.7.3.698 Ho spita .3.932741 084.8 l .8 2023-02-01 2023-02-01 Travel 1.2.840.1 1.2.164.233 8453 [id number] Methodi 00:00:00 00:00:[address] 3.430.2.7 0.2.7.3.698 Ho spita .3.111249 084.8 l .8 2023-01-24 2023-01-24 Outpatient FOG_A_Provi AOSM AO 652 [id number] Liza 00:00:00 00:00:00 arnold [id number] [facility] 2022-11-17 2022-11-17 [facility], 1.2.840.1 [id number] 2100 [id number] Methodi 00:00:00 00:00:00 [address] 3.430.2.7 Hospit a .3.207577 l .8 2022-11-17 2022-11-17 [facility], 1.2.840.1 [id number] 2099 [id number] Methodi 00:00:00 00:00:[address] 3.430.2.7 Hospit a .3.362766 l .8 2022-10-25 2022-10-25 [facility] [id number] -2022 [facility] 00:00:00 00:00:00 0506 Medica l Group 2022-10-25 2022-10-25 Outpatient Deshazo_T [facility] [place] [id number] [facility] 00:00:00 00:00:00 0117 Medica l Group 2022-10-05 2022-10-05 [facility], 1.2.840.1 [id number] 2099 [id number] Methodi 00:00:00 00:00:00 [address] 3.430.2.7 Hospit a .3.747826 l .8 2022-10-05 2022-10-05 Negrita Kerns, 1.2.840.1 [id number] 2099 [id number] Methodi 00:00:00 00:00:00 [address] 3.430.2.7 Hospit a .3.469666 l .8 2022-10-04 2022-10-04 Outpatient Deshazo_T [facility] [id number] -2021 Devoted 00:00:00 00:00:00 1227 Medica l Group 2022-07-08 2022-07-08 Lab Mallorie, 1.2.840.1 [id number] 2099 [id number] Methodi 14:30:00 14:35:00 Karlo Kelley. 15684.1.1 673 s t 3.430.2.7 Hospit a .3.431013 l .8 2022-07-08 2022-07-08 Lab Mallorie, 1.2.840.1 [id number] Methodi 14:30:00 14:35:00 Karlo Kelley. 02314.1.1 673 s t 3.430.2.7 Hospit a .3.414855 l .8 2022-07-08 2022-07-08 Travel 1.2.840.1 1.2.680.552 4755 [id number] Methodi 00:00:00 00:00:[address] 3.430.2.7 0.2.7.3.698 Ho spita .3.093665 084.8 l .8 2022-07-08 2022-07-08 Travel 1.2.840.1 1.2.989.602 2461 472130 Methodi 00:00:00 00:00:[address] 3.430.2.7 0.2.7.3.698 Ho spita .3.351764 084.8 l .8 2022-05-27 2022-05-27 Outpatient [facility] [id number] [facility] 00:00:00 00:00:00 0819 Medica l Group 2022-04-22 2022-04-22 Outpatient [facility] [place] [id number] 022 [facility] 03:41:00 03:41:00 0715 Medica l Group 2022-03-30 2022-03-30 Outpatient DMG G [id number] 022 [facility] 07:01:00 07:01:00 0622 Medica l Group 2022-03-28 2022-03-28 Emergency X [facility] ERT [id number] Univers 08:27:00 10:00:00 IRENE ragsdale [facility] 2022-03-28 2022-03-28 Emergency [facility] 1.2.840.114 [id number] Univers 08:27:00 10:00:00 Irene Delgado ALLI 350.1.13.10 ity [facility] 4.2.7.2.686 [facility] [id number] [address] 2022-03-28 2022-03-28 Emergency [facility] [id number] Univers 02:06:00 04:26:00 VTMARIZOL ragsdale [facility] 2022-03-28 2022-03-28 Emergency [facility] 1.2.335.551 [id number] Univers 02:06:00 04:26:00 Wimarizol CARSON 350.1.13.10 ity [facility] 4.2.7.2.686 [facility] [id number] [address] 2022-03-27 2022-03-27 Eddie Sullivan, 1.2.840.1 [id number] Methodi 00:00:00 00:00:[address] 3.430.2.7 Hospit a .3.750901 l .8 2022-03-20 2022-03-20 Emergency EM [facility] [id number] [facility] 12:33:00 13:50:00 56 [facility] 2022-03-20 2022-03-20 Emergency EM Tejas Allen [facility] HCAPM E244 [id number] [facility] 12:33:00 12:33:00 [id number] [facility] 2022-02-13 2022-02-18 Inpatient MAAME, [facility] [id number] 701 [place] 00:00:00 00:00:00 PRECIOUS 157 Method i 2022-01-31 2022-01-31 Outpatient COH COH PENFIXY [facility]UC [facility]H 00:00:00 00:00:00 [id number]-12016 512 2022-01-28 2022-01-28 Emergency NANCY, [facility] 064 [id number] [place] 00:00:00 00:00:00 CHANDNI 019 Method i 2022-01-22 2022-01-22 Emergency RIVENES, [facility] 699 [id number] 235 [place] 00:00:00 00:00:00 NYASIA 008 Method i 2022-01-08 2022-01-13 Inpatient KIAH, ITI [facility] 064 [id number] [place] 00:00:00 00:00:00 219 Method i 2021-11-26 2021-12-14 Inpatient NAOMI, [facility] 064 [id number] 40 [place] 00:00:00 00:00:00 NORMAN 971 Method i 2021-11-25 2021-11-25 Outpatient ELIZABETH, [facility] [id number] [place] 00:00:00 00:00:00 BYRON 700 Method i 2021-11-06 2021-11-06 Emergency RIVENES, [facility] 353 [id number] 037 [place] 00:00:00 00:00:00 NYASIA 899 Method i 2019-04-22 2019-04-22 Outpatient [facility] 26 [id number] Common 14:30:00 14:30:00 [facility] 2019-03-26 2019-03-26 Outpatient [facility] 26 [id number] Common 13:30:00 13:30:00 t [facility] Results Test Description Test Time Test Comments Results Result Comments Source ECG 12 lead 2023-02-03 01:41:59 Test Item Value Reference Range Interpretation Comme nts Ventricular rate (test code = 253) 109 Atrial rate (test code = 255) 109 WA interval (test code = 266) 142 QRSD [...] of 14-FEB-2022 00:26,-No significant change was found- [address]2023-04-28 01:41:59 Test Item Value Reference Range Interpretation Comments Ventricular rate (test 109 code = 253) Atrial rate (test code 109 = 255) WA interval (test code 142 = 266) QRSD [...] of 14-FEB-2022 00:26,-No significant change was found- [address]2023-04-28 01:41:59 Test Item Value Reference Range Interpretation Comments Ventricular rate (test 109 code = 253) Atrial rate (test code 109 = 255) WA interval (test code 142 = 266) QRSD [...] of 14-FEB-2022 00:26,-No significant change was found- [facility]- XR KNEE 3 V [id number] 13:22:00 [facility] 1960 Sex: F Name: LLUVIA LAWLER [facility] : 1960 Age/S: 61 / F [id number] Unit #: [id number] Loc: [place] [address] Phys: Tejas Allen DO Acct: [id number] Dis Date: Status: REG ER PHONE #: [phone] Exam Date: 03/20/2022 1305 FAX #: Reason: pain EXAMS: CPT: [id number] XR KNEE 3 V RT 95632 Fluoro Time: DAP (Gy m2): Air Kerma [...] PAGE 1 Signed Report Name: LLUVIA LAWLER [facility] : 1960 Age/S: 61 / F [id number] Unit #: [id number] Loc: [place] [address] Phys: Tejas Allen DO Acct: [id number] Dis Date: Status: REG ER PHONE #: [phone] Exam Date: 03/20/2022 1305 FAX #: Reason: pain EXAMS: CPT: [id number] XR KNEE 3 V RT 41233 Fluoro Time: DAP (Gy m2): Air Kerma (mGy): (Continued) Technologist: Marzena Lawler RT(R) Trnscb Date/Time: 03/20/2022 (1321) [email or web address] Orig Print D/T: S: 03/20/2022 (1325) PAGE 2 Signed Report SARS-CoV-2 (COVID-19) RNA [Presence] in Respiratory specimen by JOHAN with probe [id number] 13:37:38 Test Item Value Reference Range Interpretation Comments SARS-CoV-2 (COVID-19) RNA Not detected [Presence] in Respiratory specimen by JOHAN with probe detection (test code = 20201-8) Whether patient is employed in a Unknown healthcare setting (test code = 81212-8) Whether the patient has symptoms Unknown related to condition of interest (test code = 92099-4) Whether the patient was Unknown hospitalized for condition of interest (test code = 42783-4) Whether the patient was admitted Unknown to intensive care unit (ICU) for condition of interest (test code = 66468-7) Whether patient resides in a Unknown congregate care setting (test code = 91784-1) status (test code = Unknown 46159-5) Date and time of symptom onset Unknown (test code = 74773-5) GINI FREEMAN-CoV-2 (COVID-19) RNA [Presence] in Respiratory specimen by JOHAN with probe [id number] 23:19:45 Test Item Value Reference Range Interpretation Comments SARS-CoV-2 (COVID-19) RNA [Presence] Detected in Respiratory specimen by JOHAN with probe detection (test code = 45593-8) Whether patient is employed in a No healthcare setting (test code = 74499-9) Whether the patient has symptoms Yes related to condition of interest (test code = 44052-1) Whether the patient was hospitalized No for condition of interest (test code = 02101-8) Whether the patient was admitted to No intensive care unit (ICU) for condition of interest (test code = 01242-0) Whether patient resides in a No congregate care setting (test code = 90874-5) status (test code = Unknown 10909-5) Date and time of symptom onset (test Unknown code = 25835-2) [facility] [Presence] in Respiratory specimen by JOHAN with probe [id number] 01:20:45 Test Item Value Reference Range Interpretation Comments SARS-CoV-2 (COVID-19) RNA Not detected Not-Detected [Presence] in Respiratory specimen by JOHAN with probe detection (test code = 62158-8) Whether patient is employed in a healthcare setting (test code = 19029-6) Whether the patient has symptoms related to condition of interest (test code = 38749-9) Patient was hospitalized because of this condition (test code = 06249-9) Whether the patient was admitted to intensive care unit (ICU) for condition of interest (test code = 42676-1) Whether patient resides in a congregate care setting (test code = 31258-2) [facility] Notes Date/Time Note Provider Source 2022-03-20 12:59:00-00:00 [facility] ([facility]) EMERGENCY PROVIDER REPORT REPORT#:[id number] REPORT STATUS: Signed DATE:03/20/22 TIME:1259 PATIENT: LLUVIA LAWLER UNIT #: [id number] ROOM/BED: : 64 AGE: 61 SEX: F PCP PHYS: Hebert Monae MD SERVICE AUTHOR: Tejas Allen DO * ALL edits or amendments must be made on the [employer]/computer document * HPI-Extremity Prob Lower General Confirmed [...] were called and she was brought to [facility] ER. She told them that she [...] or dislocation identified. Impression By: [email or web address] - sAaf Dasilva M.D. Re-Evaluation MDM Re-Evaluation/Progress Re-Evaluation/Progress Text/Dict [...] your primary care physcian in 1 w [place]. Electronically Signed by Tejas Allen DO on at 1332 RPT #: [id number] END OF REPORT
--- NOTE | 2023-05-17 18:20 | ER ---
Nurse's Notes [facility] Name: Clementina Lawler Age: 63 yrs Sex: Female : 1960 Arrival Date: 05/17/2023 Time: 17:52 Bed IW4 Private MD: Diagnosis: Lateral epicondylitis, right elbow Presentation: 05/17 18:16 Chief complaint: Patient states: my right elbow hurts, it hurts to even lift a cup of iw coffee, started a month ago ,i'd like an inflammatory shot. Coronavirus screen: At this time, the client does not indicate any symptoms associated with coronavirus-19. Ebola Screen: Patient negative for fever greater than or equal to 101.5 degrees Fahrenheit, and additional compatible Ebola Virus Disease symptoms Patient denies exposure to infectious person. Patient denies travel to an Ebola-affected area in the 21 days before illness onset. Initial Sepsis Screen: Does the patient meet any 2 criteria? No. Patient's initial sepsis screen is negative. Does the patient have a suspected source of infection? No. Patient's initial sepsis screen is negative. Risk Assessment: Do you want to hurt yourself or someone else? Patient reports no desire to harm self or others. Onset of symptoms was April 2023. 18:16 Method Of Arrival: Ambulatory iw 18:16 Acuity: AWA 4 iw Triage Assessment: 18:45 General: Appears in no apparent distress. comfortable, Behavior is calm, cooperative. cm10 Injury Description: No injur. Historical: - Allergies: 18:17 Amitriptyline; iw 18:17 aripiprazole; iw 18:17 Azithromycin; iw 18:17 Carbamazepine; iw 18:17 citalopram hydrobromide; iw 18:17 paroxetine HCl; iw 18:17 RISPERIDONE; iw - PMHx: 18:17 *no blood pressure on right*; Anxiety; BREAST CA; Chronic pain; Depression; iw Hypothyroidism; - Immunization history:: Adult Immunizations unknown. - Social history:: Smoking status: unknown. Screenin:44 [facility] ED Fall Risk Assessment (Adult) History of falling in the last 3 months, cm10 including since admission No falls in past 3 months (0 pts) Confusion or Disorientation No (0 pts) Intoxicated or Sedated No (0 pts) Impaired Gait No (0 pts) Mobility Assist Device Used No (0 pt) Altered Elimination No (0 pt) Score/Fall Risk Level 0 - 2 = Low Risk Oriented to surroundings, Maintained a safe environment, Provided non-skid footwear. Abuse screen: Denies threats or abuse. Denies injuries from another. Nutritional screening: No deficits noted. Tuberculosis screening: No symptoms or risk factors identified. Assessment: 18:43 General: Appears in no apparent distress. comfortable, Behavior is calm, cooperative. cm10 Pain: Complains of pain in right elbow. Neuro: No deficits noted. Level of Consciousness is awake, alert, obeys commands, Oriented to person, place, time, situation. Respiratory: No deficits noted. Airway is patent Respiratory effort is even, unlabored, Respiratory pattern is. Musculoskeletal: Reports pain in right arm. Vital Signs: 18:16 BP 118 / 73; Pulse 94; Resp 16; Temp 98.1; Pulse Ox 97% on R/A; Weight 50.8 kg; Height iw 5 ft. 4 in. ; 18:16 Body Mass Index 19.22 (50.80 kg, 162.56 cm) iw ED Course: 18:10 Patient arrived in ED. im 18:12 Meir Pina MD is Attending Physician. cp3 18:12 Lenora Newell FNP-C [facility] snw 18:17 Triage completed. iw 18:17 Arm band placed on. iw 18:45 Patient has correct armband on for positive identification. Provided Education on: N/A. cm10 18:45 No provider procedures requiring assistance completed. Patient did not have IV access cm10 during this emergency room visit. Administered Medications: 18:35 Drug: Ketorolac IM 15 mg Route: IM; Site: right deltoid; cm10 18:46 Follow up: Response: No adverse reaction cm10 Medication: 18:44 VIS not applicable for this client. cm10 Outcome: 18:19 Discharge ordered by . snw 18:45 Discharged to home ambulatory, with family. cm10 18:45 Condition: good 18:45 Discharge instructions given to patient, Instructed on discharge instructions, follow up and referral plans. medication usage, Demonstrated understanding of instructions, follow-up care, medications, Prescriptions given X 1. 18:46 Patient left the ED. cm10 Signatures: Lenora Newell FNP-C PA[employer]ROLL ASSISTANT-Csnw Meir Pina MD MD cp3 Jazmine Agosto, RN RN iw Katrina Hurtado Clarissa, RN RN cm10
--- NOTE | 2023-05-17 18:20 | EDPHYS ---
Physician Documentation [facility] Name: Clementina Lawler Age: 63 yrs Sex: Female : 1960 Arrival Date: 05/17/2023 Time: 17:52 Bed IW4 Private MD: ED Physician Meir Pina HPI: 05/17 18:22 This 63 yrs old Female presents to ER via Ambulatory with complaints of Arm Injury. snw 18:22 The patient or guardian complains of pain. The complaints affect the right lateral snw elbow. Onset: The symptoms/episode began/occurred acutely. no history of trauma. Historical: - Allergies: 18:17 Amitriptyline; iw 18:17 aripiprazole; iw 18:17 Azithromycin; iw 18:17 Carbamazepine; iw 18:17 citalopram hydrobromide; iw 18:17 paroxetine HCl; iw 18:17 RISPERIDONE; iw - PMHx: 18:17 *no blood pressure on right*; Anxiety; BREAST CA; Chronic pain; Depression; iw Hypothyroidism; - Immunization history:: Adult Immunizations unknown. - Social history:: Smoking status: unknown. ROS: 18:21 Constitutional: Negative for fever, chills, and weight loss, Eyes: Negative for injury, snw pain, redness, and discharge, ENT: Negative for injury, pain, and discharge, Neck: Negative for injury, pain, and swelling, Cardiovascular: Negative for chest pain, palpitations, and edema, Respiratory: Negative for shortness of breath, cough, wheezing, and pleuritic chest pain, Abdomen/GI: Negative for abdominal pain, nausea, vomiting, diarrhea, and constipation, Back: Negative for injury and pain, : Negative for injury, bleeding, discharge, and swelling, Skin: Negative for injury, rash, and discoloration, Neuro: Negative for headache, weakness, numbness, tingling, and seizure, Psych: Negative for depression, anxiety, suicide ideation, homicidal ideation, and hallucinations. 18:21 MS/extremity: Positive for pain, of the right lateral elbow. Exam: 18:20 Constitutional: This is a well developed, well nourished patient who is awake, alert, snw and in no acute distress. Head/Face: Normocephalic, atraumatic. Eyes: Pupils equal round and reactive to light, extra-ocular motions intact. Lids and lashes normal. Conjunctiva and sclera are non-icteric and not injected. Cornea within normal limits. Periorbital areas with no swelling, redness, or edema. ENT: Nares patent. No nasal discharge, no septal abnormalities noted. Tympanic membranes are normal and external auditory canals are clear. Oropharynx with no redness, swelling, or masses, exudates, or evidence of obstruction, uvula midline. Mucous membranes moist. Neck: Trachea midline, no thyromegaly or masses palpated, and no cervical lymphadenopathy. Supple, full range of motion without nuchal rigidity, or vertebral point tenderness. No Meningismus. Chest/axilla: Normal chest wall appearance and motion. Nontender with no deformity. No lesions are appreciated. Respiratory: Lungs have equal breath sounds bilaterally, clear to auscultation and percussion. No rales, rhonchi or wheezes noted. No increased work of breathing, no retractions or nasal flaring. Back: No spinal tenderness. No costovertebral tenderness. Full range of motion. Skin: Warm, dry with normal turgor. Normal color with no rashes, no lesions, and no evidence of cellulitis. Neuro: Awake and alert, GCS 15, oriented to person, place, time, and situation. Cranial nerves II-XII grossly intact. Motor strength 5/5 in all extremities. Sensory grossly intact. Cerebellar exam normal. Normal gait. Psych: Awake, alert, with orientation to person, place and time. Behavior, mood, and affect are within normal limits. 18:20 Musculoskeletal/extremity: Extremities: grossly normal except: noted in the right lateral elbow: tenderness. Vital Signs: 18:16 BP 118 / 73; Pulse 94; Resp 16; Temp 98.1; Pulse Ox 97% on R/A; Weight 50.8 kg; Height iw 5 ft. 4 in. ; 18:16 Body Mass Index 19.22 (50.80 kg, 162.56 cm) iw MDM: 18:12 Patient medically screened. cp3 18:21 Differential diagnosis: closed fracture, contusion, tendonitis. Data reviewed: vital snw signs, nurses notes. Counseling: I had a detailed discussion with the patient and/or guardian regarding: the historical points, exam findings, and any diagnostic results supporting the discharge/admit diagnosis, the need for outpatient follow up, for definitive care, to return to the emergency department if symptoms worsen or persist or if there are any questions or concerns that arise at home. Special discussion: Based on the history and exam findings, there is no indication for further emergent testing or inpatient evaluation. I discussed with the patient/guardian the need to see the orthopedic surgeon for further evaluation of the symptoms. I discussed with the patient/guardian the need to see the primary care provider for further evaluation of the symptoms. Administered Medications: 18:35 Drug: Ketorolac IM 15 mg Route: IM; Site: right deltoid; cm10 18:46 Follow up: Response: No adverse reaction cm10 Disposition Summary: 05/17/23 18:19 Discharge Ordered Location: Home snw Condition: Stable snw Diagnosis - Lateral epicondylitis, right elbow snw Followup: snw - With: Emergency Department - When: As needed - Reason: Worsening of condition Followup: snw - With: Private Physician - When: 2 - 3 days - Reason: Recheck today's complaints, Continuance of care, Re-evaluation by your physician Discharge Instructions: - Discharge Summary Sheet snw - Tennis Elbow snw - Tendinitis snw Forms: - Medication Reconciliation Form snw - Thank You Letter snw - Antibiotic Education snw - Prescription Opioid Use snw - Patient Portal Instructions snw Prescriptions: - Mobic 7.5 mg Oral Tablet - take 1 tablet by ORAL route once daily take with food; 20 tablet; Refills: 0, snw Product Selection Permitted Signatures: Lenora Newell FNP-C ROD PULLER-Csnw Meir Pina MD MD cp3 Jazmine Agosto RN RN iw Jesusita No RN RN cm10
[2023-05-17] MEDS ORDERED: KETOROLAC 30 MG/ML INJ ONE (18:38)
[2023-05-17 19:12] VITALS: BP 118/73; TEMP 98.1; O2SAT 97
== END 2023-05-17 18:46 | disposition home or self-care (01) ==
LOC: ER 17:52
DX: M77.11 Lateral epicondylitis, right elbow (principal); Z88.1 Allergy status to other antibiotic agents; Z88.8 Allergy status to other drugs, medicaments and biological substances